=== PATIENT | male | born 1955 | race Caucasian/White ===

== ENCOUNTER 2018-07-14 10:49 | Outpatient (CLI) | payer OTHER ==
[2018-07-14] MEDS ORDERED: Iopamidol 370 76% 100 ML VIAL ONE (10:57)
[2018-07-14 11:14] LABS: Estimated GFR-MDRD - POC Greater than 90
--- NOTE | 2018-07-14 11:41 | CT ---
CT chest with IV contrast HISTORY: Supraglottic neoplasm malignant. COMPARISON: CT neck from [facility] dated 05/02/2018. FINDINGS: Lungs are hyperinflated with scattered peripheral areas of mild scarring. Azygous fissure a t the medial aspect of the right lung apex a 0.4 cm noncalcified nodule within the left upper lobe abuts the anterior pleura. A 0.2 cm subpleural nodule is present within the posterior segment left up per lobe. No pleural fluid or pneumothorax. A precarinal lymph node of the mediastinum measuring up to 2.1 cm g reatest length retains a normal fatty hilum. There is prominent calcification throughout the descending thoracic aorta and coronary arteries. IMPRESSION: Small subpleural left lung nodules, measuring up to 0.4 cm. No reliable evidence of thora cic metastatic disease. Atherosclerosis.
== END 2018-07-14 10:50 | disposition home or self-care (01) ==
LOC: BICCT 10:49
PROVIDERS: ATTEND Internal Medicine Hematology & Oncology
DX: C32.1 Malignant neoplasm of supraglottis (principal); R91.8 Other nonspecific abnormal finding of lung field; I70.0 Atherosclerosis of aorta
CPT/HCPCS: 71260; 82565; Q9967

== ENCOUNTER 2018-08-25 07:47 | Day surgery (SDC) | payer OTHER ==
[2018-08-25] MEDS ORDERED: Sodium Chloride 0.9% 20 ML ONE (08:03)
[2018-08-25] MEDS ORDERED: Dexamethasone 10 MG/ML VIAL SLOW IVP SCH (08:15)
[2018-08-25] MEDS ORDERED: CISplatin 75 MG, manNITOL 12.5 GM in Sodium Chloride 0.9% 500 ML IV SCH (08:15)
[2018-08-25] MEDS ORDERED: PALONOSETRON HCL 0.05 MG/ML 5 ML VIAL IVP SCH (08:15)
[2018-08-25] MEDS ORDERED: Sodium Chloride 0.9% 500 ML IV SCH (08:15)
[2018-08-25 10:30] VITALS: BP 147/77; TEMP 98.6
== END 2018-08-25 15:43 | disposition home or self-care (01) ==
LOC: ONC/OP 07:47
PROVIDERS: ATTEND Internal Medicine Hematology & Oncology
DX: Z51.11 Encounter for antineoplastic chemotherapy (principal); C32.1 Malignant neoplasm of supraglottis
CPT/HCPCS: 96361; 96367; 96375; 96413; J1100; J2150; J2469; J7050; J9060

== ENCOUNTER 2018-09-01 08:15 | Day surgery (SDC) | payer OTHER ==
[~2018-09-01 08:15] MED LIST: CISplatin 75 MG, manNITOL 12.5 GM in Sodium Chloride 0.9% 500 ML IV SCH; Dexamethasone 10 MG/ML VIAL SLOW IVP SCH; PALONOSETRON HCL 0.05 MG/ML 5 ML VIAL IVP SCH; Sodium Chloride 0.9% 500 ML IV SCH
[2018-09-01 12:24] VITALS: BP 130/65; TEMP 99
== END 2018-09-01 12:27 | disposition home or self-care (01) ==
LOC: ONC/OP 08:15
PROVIDERS: ATTEND Internal Medicine Hematology & Oncology
DX: Z51.11 Encounter for antineoplastic chemotherapy (principal); C32.1 Malignant neoplasm of supraglottis
CPT/HCPCS: 96361; 96365; 96375; 96415; J1100; J2150; J2469; J7050; J9060

== ENCOUNTER 2018-09-08 08:12 | Day surgery (SDC) | payer OTHER ==
[~2018-09-08 08:12] MED LIST changes: -Dexamethasone 10 MG/ML VIAL SLOW IVP SCH; -PALONOSETRON HCL 0.05 MG/ML 5 ML VIAL IVP SCH; +Palonosetron HCl 0.25 MG in Sodium Chloride 0.9% 50 ML IVPB SCH; +Sodium Chloride 0.9% 1,000 ML IV SCH
[2018-09-08] MEDS ORDERED: Sodium Chloride 0.9% 20 ML ONE (08:21)
[2018-09-08 09:07] VITALS: BP 134/66; TEMP 99
== END 2018-09-08 16:27 | disposition home or self-care (01) ==
LOC: ONC/OP 08:12
PROVIDERS: ATTEND Internal Medicine Hematology & Oncology
DX: Z51.11 Encounter for antineoplastic chemotherapy (principal); C32.1 Malignant neoplasm of supraglottis
CPT/HCPCS: 96361; 96367; 96375; 96413; J1100; J2150; J2469; J3480; J7050; J9060

== ENCOUNTER 2018-09-15 08:15 | Day surgery (SDC) | payer OTHER ==
[~2018-09-15 08:15] MED LIST changes: -Sodium Chloride 0.9% 1,000 ML IV SCH
[2018-09-15 09:28] VITALS: BP 137/63; TEMP 98.6
== END 2018-09-15 13:27 | disposition home or self-care (01) ==
LOC: ONC/OP 08:15
PROVIDERS: ATTEND Internal Medicine Hematology & Oncology
DX: Z51.11 Encounter for antineoplastic chemotherapy (principal); C32.1 Malignant neoplasm of supraglottis
CPT/HCPCS: 96361; 96366; 96368; 96413; J1100; J2150; J2469; J3480; J7050; J9060

== ENCOUNTER 2018-09-22 07:46 | Day surgery (SDC) | payer OTHER ==
[2018-09-22 08:16] VITALS: BP 125/77; TEMP 97.8
[2018-09-22] MEDS ORDERED: Sodium Chloride 0.9% 20 ML ONE (09:01)
== END 2018-09-22 14:32 | disposition home or self-care (01) ==
LOC: ONC/OP 07:46
PROVIDERS: ATTEND Internal Medicine Hematology & Oncology
DX: Z51.11 Encounter for antineoplastic chemotherapy (principal); C32.1 Malignant neoplasm of supraglottis
CPT/HCPCS: 96361; 96366; 96375; 96413; J1100; J2150; J2469; J3480; J7050; J9060

== ENCOUNTER 2018-09-30 20:17 | Inpatient (IN) | payer OTHER, SELFPAY ==
[2018-09-30 21:00] LABS: Hemoglobin 11.5 g/dL (14.0-18.0); Mean Corpuscular HGB CONC 35.9 g/dL (32.0-36.0); Mean Corpuscular Hemoglobin 34.2 pg (27.0-31.0); Mean Corpuscular Volume 95.2 fL (78.0-98.0); Mean Platelet Volume 6.6 fL (7.4-10.4); Platelet Count 161 thou/uL (130-400); RBC Distribution Width 13.1 % (11.5-14.5); Red Blood Cell (RBC) Count 3.37 mill/uL (4.70-6.10); White Blood Cell (WBC) Count 1.3 thou/uL (4.8-10.8)
--- NOTE | 2018-09-30 21:12 | RAD ---
Upright frontal chest radiograph: 09/30/2018 COMPARISON: 05/21/2013 HISTORY: Chest pain FINDINGS: Increased linear interstitial density and pulmonary hyperinflation again noted., Stable whe n compared to the prior study. Findings suggest COPD in the proper clinical setting. No pneumothorax or pleural fluid. No focal consolidation or alveolar edema. IMPRESSION: Interstitial prominence and pulmonary basilar congestion as detailed above.
[2018-09-30 21:22] LABS: ALT (SGPT) 10 U/L (8-55); AST (SGOT) 11 U/L (5-34); Albumin 3.6 g/dL (3.5-5.0); Alkaline Phosphatase 69 U/L (40-150); Anion Gap 14 mmol/L (10-20); BUN (Urea Nitrogen) 12 mg/dL (8.4-25.7); Bilirubin, Total 1.5 mg/dL (0.2-1.2); Calc. Creatinine Clearance 0 mL/min (70-130); Calcium 8.3 mg/dL (7.8-10.44); Carbon Dioxide 26 mmol/L (22-29); Chloride 92 mmol/L (98-107); Estimated GFR-MDRD 90; Globulin 2.8 g/dL (2.4-3.5); Glucose 102 mg/dL (70-105); Potassium 3.6 mmol/L (3.5-5.1); Protein, Total 6.4 g/dL (6.0-8.3); Sodium 128 mmol/L (136-145)
[2018-09-30] MEDS ORDERED: Cefepime 2 GM VIAL ONE (21:24)
[2018-09-30 21:25] LABS: Band 10 % (5-11); Lymphocytes 20 % (21-51); MDiff Complete? YES; Monocytes 26 % (0-10); Neutrophil 43 % (42-75); Reactive Lymphocytes 1 % (0-10)
[2018-09-30] MEDS ORDERED: Acetaminophen 500 MG TAB ONE (21:53)
--- NOTE | 2018-09-30 23:11 | PDOC.FPRHP ---
- History of Present Illness Chief Complaint: chest pain, fever, decreased po intake History of Present Illness: Mr. Barreto is a 62 yoM w/ PMH of supraglottic cancer currently undergoing chemo and radiation who presented to the ED for episodic chest pain and fever. He describes the chest pain as pressure in the midepigastric area, substernal, comes and goes, lasts for a few minutes, does not radiate anywhere. He has only had one episode of the pain today, but has had a couple in the last several weeks. He denies sob with the pain, but is sob all the time because he has COPD , denies n/v. He states that he has not had a good appetite or been able to eat or drink in several days due to pain from radiation. He has generalized weakness and endorses dizziness with standing. He is on his fifth week of chemo and day 24 of radiation. His oncologist is Dr. Cardozo. ED Course: 3L NS, 2g vancomycin, 2g cefepime - Allergies/Adverse Reactions Allergies Allergy/AdvReac Type Severity Reaction Status Date / Time No Known Allergies Allergy Verified 09/30/18 23:53 - Home Medications Medication Instructions Recorded Confirmed Type Albuterol Sulfate [Proventil Hfa] 1 puff IN PRN PRN 09/30/18 09/30/18 History Aspirin 325 mg PO DAILY 09/30/18 09/30/18 History Budesonide-Formoterol [Symbicort 2 puff INH BID-RT 09/30/18 09/30/18 History 160-4.5] Diltiazem HCl [Diltiazem 24Hr ER] 180 mg PO BID 09/30/18 09/30/18 History Loratadine 10 mg PO DAILY 09/30/18 09/30/18 History Magnesium Oxide [Magnesium] 500 mg PO DAILY 09/30/18 09/30/18 History Metoprolol Succinate [Toprol XL] 25 mg PO DAILY 09/30/18 09/30/18 History Ranitidine HCl 150 mg PO DAILY 09/30/18 09/30/18 History - History PMHx: HTN, Supraglottic malignancy, COPD PSHx: denies FHx:denies Social: smokes 1ppd for 40+ years; drinks 12-15 per day of beer, last drink ~48 hours ago - Review of Systems General: reports: fever/chills, weight/appetite/sleep changes, fatigue Eyes: denies: eye pain, vision changes ENT: denies: nasal congestion, rhinorrhea Respiratory: reports: cough, shortness of breath. denies: congestion Cardiovascular: reports: chest pain. denies: palpitation, edema Gastrointestinal: denies: nausea, vomiting, diarrhea, constipation Genitourinary: reports: other (decreased urination). denies: dysuria, polyuria Skin: denies: rashes, lesions Musculoskeletal: denies: pain, tenderness Neurological: denies: numbness, syncope Psychological: denies: anxiety, depression - Vital signs BP: 134/66 HR: 84 RR: 20 Tmax: 101.6 Pox: 95% on RA Wt: 69kg - Physical Exam Constitutional: NAD, awake, alert and oriented HEENT: normocephalic and atraumatic, PERRLA, EOMI, grossly normal vision, grossly normal hearing Neck: FROM, other (mass noted right side, radiation rodríguez present) Chest: no-tender to palpation Heart: RRR, normal S1/S2, no murmurs/rubs/gallops, pulses present, no edema Lungs: CTAB, no respiratory distress, good air movement, no rales/rhonchi, no wheezing Abdomen: soft, non-tender, bowel sounds present Musculoskeletal: normal structure, normal tone Neurological: no focal deficit, CN II-XII intact Skin: good turgor -Skin: radiation burn on neck and chest Heme/Lymphatic: no unusual bruising or bleeding, no purpura, no petechia Psychiatric: normal mood and affect, good judgment and insight FMR H&P: Results - Labs Result Diagrams: 10/01/18 05:38 10/01/18 05:38 Lab results: WBC 1.3 thou/uL (4.8-10.8) L 09/30/18 20:50 Hgb 11.5 g/dL (14.0-18.0) L 09/30/18 20:50 Hct 32.1 % (42.0-52.0) L 09/30/18 20:50 MCV 95.2 fL (78.0-98.0) 09/30/18 20:50 Plt Count 161 thou/uL (130-400) 09/30/18 20:50 Band Neuts % (Manual) 10 % (5-11) 09/30/18 20:50 Sodium 128 mmol/L (136-145) L 09/30/18 20:50 Potassium 3.6 mmol/L (3.5-5.1) 09/30/18 20:50 Chloride 92 mmol/L (98-107) L 09/30/18 20:50 Carbon Dioxide 26 mmol/L (22-29) 09/30/18 20:50 BUN 12 mg/dL (8.4-25.7) 09/30/18 20:50 Creatinine 0.87 mg/dL (0.7-1.3) 09/30/18 20:50 Glucose 102 mg/dL (70-105) 09/30/18 20:50 Lactic Acid 1.3 mmol/L (0.5-2.2) 09/30/18 20:50 Calcium 8.3 mg/dL (7.8-10.44) 09/30/18 20:50 Total Bilirubin 1.5 mg/dL (0.2-1.2) H 09/30/18 20:50 AST 11 U/L (5-34) 09/30/18 20:50 ALT 10 U/L (8-55) 09/30/18 20:50 Alkaline Phosphatase 69 U/L (40-150) 09/30/18 20:50 Serum Total Protein 6.4 g/dL (6.0-8.3) 09/30/18 20:50 Albumin 3.6 g/dL (3.5-5.0) 09/30/18 20:50 - EKG Interpretation EKG: Atrial fib w/ rvr - Radiology Interpretation Chest x-ray Status: report reviewed by me (COPD, no focal consolidation or edema.) FMR H&P: A/P - Problem List (1) COPD (chronic obstructive pulmonary disease) Current Visit: Yes Status: Acute (2) Cancer Current Visit: Yes Status: Acute Code(s): C80.1 - MALIGNANT (PRIMARY) NEOPLASM, UNSPECIFIED (3) Neutropenic fever Current Visit: Yes Status: Acute Code(s): D70.9 - NEUTROPENIA, UNSPECIFIED; R50.81 - FEVER PRESENTING WITH CONDITIONS CLASSIFIED ELSEWHERE (4) Atypical chest pain Current Visit: Yes Status: Acute Code(s): R07.89 - OTHER CHEST PAIN (5) Hyponatremia Current Visit: Yes Status: Acute Code(s): E87.1 - HYPO-OSMOLALITY AND HYPONATREMIA (6) Atrial fibrillation with RVR Current Visit: Yes Status: Acute Code(s): I48.91 - UNSPECIFIED ATRIAL FIBRILLATION (7) Dehydration Current Visit: Yes Status: Acute Code(s): E86.0 - DEHYDRATION - Plan 1. Neutropenic fever: * Unknown source. * WBC 1.6. Empirically started on Cefepime 2g TID and Vancomycin * Blood and urine cultures pending. * Respiratory viral panel pending 2. Atypical chest pain * Heart score 3 or 4. * Trend troponins and repeat EKG if chest pain recurs. * Initial troponin negative. * History of malignancy and COPD, unlikely able to be stress tested at this time. 3. Hyponatremia * Currently dehydrated with concentrated urine. * Chronic alcohol use. * Urine Na and Osm ordered. * May be chronic, labs from 2014 also showed hyponatremia. * Will reassess in the am. 4. Afib with RVR * Chronic medical problem. * Rate resolved with 3L NS. * Will restart home medications. 5. Alcohol abuse * Drinks 12-15 beers/day. Last drink ~48hours ago. * Denies symptoms of withdrawal. * ASE protocol ordered. 6. Supraglottic malignancy * Sees Dr. Cardozo, will consult ONC in the AM Disposition/LOS: Dispo: inpatient Code: full VTE: lovenox FMR H&P: Upper Level - Pertinent history 62 yo gentleman with supraglottic malignancy presents with generalized weakness and chest pain, found to have a fever here in the ED and neutropenia. He is currently getting chemo and radiation. Last round was yesterday. - Pertinent findings Vitals: HR: 98, afib, initially 130 afib with rvr, BP: 110/65, O2sat: 94% RA, T: 101.6 PE: golfball size mass of right neck irregularly irregular rhythm decreased breath sounds chest pain not reproducible on exam a&ox3 Labs: wbc: 1.3 CXR: no acute process - Plan Date/Time: 09/30/18 2308 62 yo gentleman admitted for neutropenic fever without a source. #Neutropenic fever -wbc 1.6, pt started on cefepime and vanc, blood and urine cx sent; no clear source currently -CXR no signs of pneumonia, ordered RVP to further assess -UA showed ketones -a&ox3 Atypical chest pain- -midepigastric, substernal, pressure, comes and goes, not with exertion, no associated sx -heart score of 3-4; will rule out with serial troponins and EKGs if chest pain recurs -pt has a malignancy and COPD, not a good candidate for an exercise or pharmacologic stress -initial troponin negative #hyponatremia- -volume down -ordered urine sodium and urine osms ordered -mild and chronic -fluid resusitated in the ER -will recheck in the morning -suspect multifactorial: has been present since 2013; could be SIADH 2/2 malignancy, although neck cancer is less commonly associated with SIADH, will check tsh as radiation to neck, not currently on diuretics, is a beer drinker, bp's normal so less likely AI, not c/o vomiting or diarrhea #Afib with RVR- -RVR resolved with 3L fluids -restarted home meds -rate in the 80s during our evaluation -currently on 325mg aspirin daily instead of a NOAC. -if tachycardia returns, consider CT PA of chest, although not hypoxic or acutely short of breath, however d/t malignancy at increased risk for DVT/PE Deconditioned/Dehydrated- -started fluids #Alcohol abuse- -12-15 beers per day -last beer ~48 hours ago #Supraglottic malignancy- -Sees Dr. Cardozo -currently undergoing chemo/radiation See product development intern note for chronic conditions. Willard Castillo MD, PGY-3 I, [], have evaluated this patient and agree with findings/plan as outlined by product development intern resident. Pertinent changes/additions are listed here. Addendum - Attending - Attending Attestation Date/Time: 10/01/181811 I personally evaluated the patient and discussed the management with Dr. Denise/ Anna. I agree with the History, Examination, Assessment and Plan documented above with any addition or exceptions noted below. H&P repeated by me. Neutropenic fever- no obvious source and procal negative. Continue cefepime and vanc until cx neg at 48 hours. Then probably discharge. Appreciate onc input Squamous cell carcinoma- management per Onc/radiation onc Dehydration- IVF Hypokalemia- replace.
[2018-09-30] MEDS ORDERED: Senokot S 8.6-50 MG TAB PO PRN (23:34)
[2018-09-30] MEDS ORDERED: Ondansetron ODT 4 MG TAB PO PRN (23:34)
[2018-09-30] MEDS ORDERED: Loperamide HCl 2 MG CAP PO PRN (23:34)
[2018-09-30] MEDS ORDERED: Enoxaparin Sodium 40 MG/0.4 ML SYRINGE SC SCH (23:45)
[2018-10-01] VITALS: BMI 19.0
[2018-10-01] MEDS: Sodium Chloride 0.9% 1,000 ML IV SCH ×4 (00:38→20:27)
[2018-10-01 00:55] LABS: Bacteria/HPF None Seen HPF (None Seen); Bilirubin Negative (Negative); Blood, Urine Negative (Negative); Clarity Clear (Clear); Glucose, Urine (Dipstick) Normal (Negative); Leukocyte Negative Leu/uL (Negative); Nitrite Negative (Negative); Protein, Urine (Dipstick) 30 mg/dL (Neg-Trace); RBC/HPF 0-3 HPF (0-3); Squamous Epithelial 0-3 HPF (0-3); Urobilinogen Normal mg/dL (Less than 2)
[2018-10-01] MEDS ORDERED: PROVENTIL INHALER 6.7 G (200 INHALATIONS) INH PRN (01:56)
[2018-10-01] MEDS ORDERED: Lorazepam 2 MG/ML VIAL SLOW IVP PRN (02:06)
[2018-10-01 02:30] LABS: Troponin I 0.022 ng/mL (< 0.028)
[2018-10-01] MEDS ORDERED: Diazepam 5 MG TAB PO PRN (02:39)
[2018-10-01] MEDS ORDERED: Thiamine HCl 200 MG/2 ML VIAL IM SCH (02:45)
[2018-10-01] MEDS ORDERED: Diazepam 5 MG TAB PO SCH (02:45)
[2018-10-01] MEDS: Cefepime 2 GM in Sodium Chloride 0.9% 100 ML IVPB SCH ×3 (05:17→21:09)
[2018-10-01] MEDS: Vancomycin HCl 1 GM in Premix Bag 1 BAG IVPB SCH ×3 (05:21→22:28)
[2018-10-01 06:33] LABS: Anion Gap 12 mmol/L (10-20); BUN (Urea Nitrogen) 9 mg/dL (8.4-25.7); Calc. Creatinine Clearance 111 mL/min (70-130); Calcium 7.4 mg/dL (7.8-10.44); Carbon Dioxide 21 mmol/L (22-29); Chloride 100 mmol/L (98-107); Estimated GFR-MDRD Greater than 90; Glucose 85 mg/dL (70-105); Potassium 3.2 mmol/L (3.5-5.1); Sodium 130 mmol/L (136-145)
[2018-10-01] MEDS: Mometasone/Formoterol 120 PUFF INHALER INH SCH ×2 (06:55→18:47)
[2018-10-01 07:01] LABS: Band 12 % (5-11); Eosinophils 1 % (0-10); Hemoglobin 9.8 g/dL (14.0-18.0); Lymphocytes 31 % (21-51); MDiff Complete? YES; Mean Corpuscular HGB CONC 36.1 g/dL (32.0-36.0); Mean Corpuscular Hemoglobin 34.2 pg (27.0-31.0); Mean Corpuscular Volume 94.8 fL (78.0-98.0); Mean Platelet Volume 6.6 fL (7.4-10.4); Monocytes 28 % (0-10); Neutrophil 28 % (42-75); Platelet Count 142 thou/uL (130-400); RBC Distribution Width 13.2 % (11.5-14.5); Red Blood Cell (RBC) Count 2.86 mill/uL (4.70-6.10); White Blood Cell (WBC) Count 1.1 thou/uL (4.8-10.8)
[2018-10-01] MEDS: Magnesium Oxide 250 MG TAB PO SCH (08:53)
[2018-10-01] MEDS: Aspirin 325 MG TAB PO SCH (08:53)
[2018-10-01] MEDS: Multivitamin W/ Minerals 1 TAB PO SCH (08:53)
[2018-10-01] MEDS: Famotidine 20 MG TAB PO SCH ×2 (08:54→20:18)
[2018-10-01] MEDS: Folic Acid 1 MG TAB PO SCH (08:54)
[2018-10-01] MEDS: Loratadine 10 MG TAB PO SCH (08:54)
[2018-10-01] MEDS: Enoxaparin Sodium 40 MG/0.4 ML SYRINGE SC SCH ×2 (08:54→09:07)
[2018-10-01] MEDS ORDERED: Prevnar 13-Val Conj/PF 0.5 ML SYRINGE IM ONE (09:00)
[2018-10-01 10:14] LABS: Troponin I Less than 0.010 ng/mL (< 0.028)
--- NOTE | 2018-10-01 15:12 | CON ---
DATE OF CONSULTATION: REASON FOR CONSULT: Squamous cell carcinoma. HISTORY OF PRESENT ILLNESS: Mr. 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 He has a history of tobacco and alcohol use. He has been on concurrent chemoradiation with cisplatin. He has completed 4 cycles and has 10 days of radiation left. His last chemotherapy was scheduled for this past Saturday. However, his white count was 1.3 with an ANC of 0.6, so treatment was held. He states he had a fever last night of 101.3 and generalized malaise, so he presented to the emergency room for evaluation. On arrival, his white count was 1.3, hemoglobin 11.5, and platelet count was a 161,000. His sodium was 128. He was admitted for dehydration and hyponatremia. He has been started on IV fluids. He has been enciso-cultured and results are currently pending. He is on empiric antibiotics including vancomycin. He states he is feeling significantly improved overnight. States his last drink was approximately three days ago. He drinks 6 to 12 beers in the evening. Continues to smoke despite frequent request to stop. Denies any congestion or new cough. No abdominal pain. No diarrhea, nausea, or vomiting. PAST MEDICAL HISTORY: 1. Metastatic keratinizing squamous cell carcinoma. 2. Hypertension. 3. Atrial fibrillation. 4. COPD. 5. GERD. 6. Tobacco and alcohol abuse. PAST SURGICAL HISTORY: FNA of the right neck mass. ALLERGIES: NO KNOWN DRUG ALLERGIES. HOME MEDICATIONS: 1. Symbicort twice a day. 2. Ranitidine daily. 3. Proventil as needed. 4. Metoprolol succinate 25 mg daily. 5. Diltiazem ER 180 mg b.i.d. 6. Aspirin 325 daily. FAMILY HISTORY: Noncontributory. SOCIAL HISTORY: . No children. Lives with his spouse. A 45 pack-year history of smoking. Drinks heavily. No illicit drug use. REVIEW OF SYSTEMS: A 10-point review of systems is negative except for noted in HPI. PHYSICAL EXAMINATION: VITAL SIGNS: Temperature is 98.7, pulse is 110, respiratory rate 17, BP is 128/70, and he is 97% on room air. GENERAL: This is a chronically ill-appearing male, in no acute distress. HEENT: Normocephalic and atraumatic. Pupils are equal and reactive to light. NECK: He has a 4 to 5 cm mass on his right neck. LUNGS: Clear to auscultation. CV: Regular rate and rhythm. ABDOMEN: Soft and nontender. Bowel sounds are positive. EXTREMITIES: No clubbing, cyanosis, or edema. SKIN: He has a radiation burn to his neck. HEMATOLOGIC: No petechiae or purpura. NEUROLOGIC: Nonfocal. PSYCH: He is alert and oriented and appropriate. PERTINENT LABS AND X-RAYS: Current WBCs are 1.1, hemoglobin is 9.8, hematocrit is 27.1, platelet count is a 142,000, 28% neutrophils, 12% bands, and 31% lymphocytes. Sodium 130, potassium 3.2, chloride 100, CO2 of 21, BUN is 9, creatinine 0.69, calcium 7.4, bilirubin is 1.5, AST is 11, ALT 10, alkaline phosphatase is 69, serum total protein 6.4, albumin 3.6, and globulin 2.8. Urine is negative for bacteria. ASSESSMENT: 1. Squamous cell carcinoma of the right neck on concurrent chemo radiation. 2. History of tobacco and alcohol use. 3. Dehydration. 4. Neutropenic fever. DISCUSSION: The patient's fever has resolved. His neutropenia is stable, expected to improve over the next several days. His blood cultures are pending. He has been instructed to avoid alcohol and tobacco use as this likely contributes to his dehydration. He is feeling better with IV fluids. We have discussed PEG tube multiple times in the past, he continues to decline. He can be discharged once his cultures have returned and he is treated appropriately. He will follow up in our clinic on Saturday for possible IV fluids and repeat labs and resume chemotherapy next week. I have notified radiation of his location and will be continued based on Dr. Sheppard's discretion. Thank you for the consult. Job ID: [id number]
[2018-10-01] MEDS: Acetaminophen 325 MG TAB PO PRN (20:19)
[2018-10-01 21:53] LABS: Vancomycin, Trough 17.3 ug/mL
[2018-10-02] MEDS ORDERED: Diazepam 5 MG TAB PO PRN (04:00)
[2018-10-02] MEDS: Acetaminophen 325 MG TAB PO PRN ×2 (04:04→15:59)
[2018-10-02] MEDS: Cefepime 2 GM in Sodium Chloride 0.9% 100 ML IVPB SCH ×3 (05:07→21:04)
[2018-10-02] MEDS: Vancomycin HCl 1 GM in Premix Bag 1 BAG IVPB SCH ×2 (05:16→14:31)
--- NOTE | 2018-10-02 06:02 | PDOC.FM ---
- Subjective Subjective: Pt doing well this morning, he would like to go home. Discussed need to stay for 48h cultures, pt agreed at this time. No CP, SOB, fevers/chills, n/v/d/c. Decrease PO intake and appetite, this is chronic. Has had discussion for PEG in past but continues to decline. - Objective MAR Reviewed: Yes Vital Signs & Weight: Vital Signs (12 hours) Temp Pulse Resp BP BP Pulse Ox 10/02/18 04:00 135/68 10/02/18 03:59 101.1 F H 125 H 20 135/68 94 L 10/02/18 00:00 129/79 10/01/18 23:58 99.0 F 102 H 20 129/79 92 L 10/01/18 22:30 99.9 F H 114 H 10/01/18 20:27 94 L 10/01/18 20:00 158/76 H 10/01/18 19:22 100.5 F H 110 H 20 158/76 H 93 L Weight Admit Weight 68.974 kg Weight 68.974 kg I&O: 09/30/18 10/01/18 10/02/18 06:59 06:59 06:59 Intake Total 1960 Balance 1960 Result Diagrams: 10/02/18 06:17 10/02/18 15:50 Phys Exam - Physical Examination Constitutional: NAD Large 5+cm mass on right neck, nontender, radiation rodríguez around neck wheezing BL, decreased air movement throughout. Cardiovascular: RRR, no significant murmur, no rub Gastrointestinal: soft, non-tender, no distention, positive bowel sounds Musculoskeletal: no edema Neurological: non-focal Dx/Plan (1) Squamous cell carcinoma, keratinizing Code(s): C44.92 - SQUAMOUS CELL CARCINOMA OF SKIN, UNSPECIFIED Status: Acute (2) Atypical chest pain Code(s): R07.89 - OTHER CHEST PAIN Status: Resolved (3) COPD (chronic obstructive pulmonary disease) Status: Chronic (4) Dehydration Code(s): E86.0 - DEHYDRATION Status: Acute (5) Neutropenic fever Code(s): D70.9 - NEUTROPENIA, UNSPECIFIED; R50.81 - FEVER PRESENTING WITH CONDITIONS CLASSIFIED ELSEWHERE Status: Acute - Plan Plan: 62 yo CM with h/o 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 1. Neutropenic fever - Wbc 1.6, ANC 440. On cefepime and vanc, Bcx and Ucx pending; spiked fever overnight, no clear source. Recheck CBC this AM. - CXR no signs of pneumonia, RVP negative - Procal initially negative, will reorder. - Likely neutropenic fever, will get Onc recs and monitor for 48 hour cxs 2. Atypical chest pain, resolved - Midepigastric pressure that comes and goes, nonexertional, no associated sxs. Heart score 3-4. - EKG and trops neg. No return of sxs - H/o malignancy and COPD, not good candidate for stress, likely MSK vs GERD pain. Will monitor. 3. Hyponatremia - Possibly hypovolemic hyponatremia, mild and chronic in nature present since 2013, h/o EtOH abuse with poor PO intake - Continue IVF - K low at 2.7 and Mg at 0.9 this AM, replacing and recheck BMP this PM. 4. Afib with RVR- - RVR resolved with 3L fluids in ED. - Continue home meds, HR to 120s this AM, night team added Toprol. - Currently on 325mg ASA instead of NOAC 5. Deconditioned/Dehydrated - continue IVF of NS @ 125 6. H/o Alcohol abuse- - 12-15 beers per day. Last drink > 48h prior to admission - no s/s of acute withdrawal, will monitor 7. 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 Cardozo and notified Dr. Gallardo's office, currently undergoing chemo and radiation, apprec recs and assistance. Diet: Regular VTE: Pt continues to refuse lovenox, R/B/A discussed, will provide SCDs at this time Code: Full Dispo: On abx and continuing to spike fevers, likely neutropenic fevers, will await 48h cultures. Anticipate discharge tomorrow pending clinical course Addendum - Attending - Attending Attestation Date/Time: 10/02/182113 I personally evaluated the patient and discussed the management with Dr. Paula Fermin. I agree with the History, Examination, Assessment and Plan documented above with any addition or exceptions noted below. Neutropenic fever-blood and urine cx neg thus far. Still febrile. ANc improved to 561. Continue cefepime and vanc until 48 hour cx neg Afib- elevated HR when febrile. Continue IVF and home rate controllers. hypokalemia and hypomagnesemia- replace.
[2018-10-02 06:30] LABS: Hemoglobin 10.7 g/dL (14.0-18.0); Mean Corpuscular Hemoglobin 33.9 pg (27.0-31.0); Mean Corpuscular Volume 94.2 fL (78.0-98.0); Platelet Count 161 thou/uL (130-400); RBC Distribution Width 13.4 % (11.5-14.5); Red Blood Cell (RBC) Count 3.17 mill/uL (4.70-6.10); White Blood Cell (WBC) Count 1.1 thou/uL (4.8-10.8)
[2018-10-02 06:37] LABS: Anion Gap 12 mmol/L (10-20); BUN (Urea Nitrogen) 5 mg/dL (8.4-25.7); Calc. Creatinine Clearance 120 mL/min (70-130); Calcium 7.6 mg/dL (7.8-10.44); Carbon Dioxide 24 mmol/L (22-29); Chloride 94 mmol/L (98-107); Estimated GFR-MDRD Greater than 90; Glucose 99 mg/dL (70-105); Sodium 127 mmol/L (136-145)
[2018-10-02 06:39] LABS: Magnesium 0.9 mg/dL (1.6-2.6); Potassium 2.7 mmol/L (3.5-5.1)
[2018-10-02] MEDS: Mometasone/Formoterol 120 PUFF INHALER INH SCH ×2 (07:09→18:11)
[2018-10-02] MEDS ORDERED: Magnesium 2 GM/50 ML 2 GM in Premix Bag 1 BAG IVPB SCH (07:30)
[2018-10-02] MEDS: Potassium Chloride 20 MEQ in Premix Bag 1 BAG IVPB SCH ×2 (07:59→10:13)
[2018-10-02 08:05] LABS: Band 20 % (5-11); Eosinophils 3 % (0-10); Lymphocytes 29 % (21-51); MDiff Complete? YES; Monocytes 16 % (0-10); Neutrophil 31 % (42-75); Platelet Morphology Comment Appears Adequate; Polychromasia SLIGHT = 2-3 cells (100X) (0-2/hpf); Reactive Lymphocytes 1 % (0-10)
[2018-10-02] MEDS: Thiamine 100 MG TAB PO SCH (08:13)
[2018-10-02] MEDS: Aspirin 325 MG TAB PO SCH (08:13)
[2018-10-02] MEDS: Famotidine 20 MG TAB PO SCH ×2 (08:13→21:04)
[2018-10-02] MEDS: Loratadine 10 MG TAB PO SCH (08:14)
[2018-10-02] MEDS: Folic Acid 1 MG TAB PO SCH (08:14)
[2018-10-02] MEDS: Multivitamin W/ Minerals 1 TAB PO SCH (08:14)
[2018-10-02] MEDS: Enoxaparin Sodium 40 MG/0.4 ML SYRINGE SC SCH (08:18)
[2018-10-02] MEDS: Sodium Chloride 0.9% 1,000 ML IV SCH ×2 (08:18→17:49)
[2018-10-02] MEDS: Magnesium Oxide 250 MG TAB PO SCH (08:30)
[2018-10-02] MEDS ORDERED: Magnesium Oxide 400 MG TAB PO SCH (09:00)
[2018-10-02 10:59] LABS: Bilirubin Negative (Negative); Blood, Urine Negative (Negative); Clarity Clear (Clear); Glucose, Urine (Dipstick) Normal (Negative); Leukocyte Negative Leu/uL (Negative); Nitrite Negative (Negative); Protein, Urine (Dipstick) Negative (Neg-Trace); Urobilinogen Normal mg/dL (Less than 2)
--- NOTE | 2018-10-02 11:31 | PDOC.MOPN ---
Interval History: Denies complaints, eating poorly. Fever 101 last night - Vital Signs Vital Signs: Vital Signs (12 hours) Temp Pulse Resp BP BP Pulse Ox 10/02/18 08:00 118/73 10/02/18 07:18 99.3 F 102 H 18 118/73 90 L 10/02/18 07:09 118 H 14 94 L 10/02/18 06:00 100.9 F H 110 H 10/02/18 04:00 135/68 10/02/18 03:59 101.1 F H 125 H 20 135/68 94 L 10/02/18 00:00 129/79 10/01/18 23:58 99.0 F 102 H 20 129/79 92 L Weight Admit Weight 152 lb 1 oz Weight 152 lb 1 oz - Physical Exam General: Alert, Oriented x3 HEENT: Atraumatic Lungs: Clear to auscultation Cardiovascular: Regular rate Abdomen: Normal bowel sounds Extremities: No edema Skin: No rashes (right neck mass with mild radiation skin changes) Neurological: Normal speech Psych/Mental Status: Mental status NL - Labs Result Diagrams: 10/02/18 06:17 10/02/18 06:17 Lab results: Laboratory Results - last 24 hr 10/02/18 08:00: Urine Color Light-Yellow, Urine Clarity Clear, Urine pH 6.0, Ur Specific [place] 1.011, Urine Protein Negative, Urine Glucose (UA) Normal, Urine Ketones 40 A, Urine Blood Negative, Urine Nitrite Negative, Urine Bilirubin Negative, Urine Urobilinogen Normal, Ur Leukocyte Esterase Negative 10/02/18 06:17: WBC 1.1 L, RBC 3.17 L, Hgb 10.7 L, Hct 29.8 L, MCV 94.2, MCH 33.9 H, MCHC 36.0, RDW 13.4, Plt Count 161, MPV 6.0 L, Neutrophils % (Manual) 31 L, Band Neuts % (Manual) 20 H, Lymphocytes % (Manual) 29, Reactive Lymphs % 1 , Monocytes % (Manual) 16 H, Eosinophils % (Manual) 3, Neutrophils # Not Reportable, Lymphocytes # Not Reportable, Plt Morphology Comment Appears Adequate, Polychromasia SLIGHT = 2-3 cells 10/02/18 06:17: Procalcitonin 0.04 10/02/18 06:17: Sodium 127 L, Potassium 2.7 L*, Chloride 94 L, Carbon Dioxide 24 , Anion Gap 12, BUN 5 L, Creatinine 0.64 L, Estimated GFR (MDRD) Greater than 90, Glucose 99, Calcium 7.6 L, Phosphorus 3.0, Magnesium 0.9 L* 10/01/18 21:22: Vancomycin Trough 17.3 Status: lab reviewed by me A/P - Problem (1) Dehydration Current Visit: Yes Code(s): E86.0 - DEHYDRATION Status: Acute (2) Hyponatremia Current Visit: Yes Code(s): E87.1 - HYPO-OSMOLALITY AND HYPONATREMIA Status : Acute (3) Neutropenic fever Current Visit: Yes Code(s): D70.9 - NEUTROPENIA, UNSPECIFIED; R50.81 - FEVER PRESENTING WITH CONDITIONS CLASSIFIED ELSEWHERE Status: Acute (4) Squamous cell carcinoma, keratinizing Current Visit: Yes Code(s): C44.92 - SQUAMOUS CELL CARCINOMA OF SKIN, UNSPECIFIED Status: Acute (5) Hypomagnesemia Current Visit: Yes Code(s): E83.42 - HYPOMAGNESEMIA Status: Acute - Plan Plan: Continue empiric antibiotics, await cultures IVF for dehydration replete electrolytes Encourage po intake Resume radiation today Neutropenic precautions
[2018-10-02 16:20] LABS: Anion Gap 10 mmol/L (10-20); BUN (Urea Nitrogen) 6 mg/dL (8.4-25.7); Calc. Creatinine Clearance 113 mL/min (70-130); Calcium 7.5 mg/dL (7.8-10.44); Carbon Dioxide 26 mmol/L (22-29); Chloride 94 mmol/L (98-107); Estimated GFR-MDRD Greater than 90; Glucose 111 mg/dL (70-105); Magnesium 1.5 mg/dL (1.6-2.6); Potassium 3.3 mmol/L (3.5-5.1); Sodium 127 mmol/L (136-145)
[2018-10-02] MEDS ORDERED: Potassium Chloride 20 MEQ TAB PO SCH (17:30)
[2018-10-02 21:23] LABS: Vancomycin, Trough 22.5 ug/mL
[2018-10-02] MEDS: Vancomycin HCl 750 MG in Sodium Chloride 0.9% 250 ML 250 ML IVPB SCH (21:56)
[2018-10-03] MEDS: Sodium Chloride 0.9% 1,000 ML IV SCH ×2 (00:50→05:27)
[2018-10-03] MEDS: Vancomycin HCl 750 MG in Sodium Chloride 0.9% 250 ML 250 ML IVPB SCH (05:27)
[2018-10-03] MEDS: Cefepime 2 GM in Sodium Chloride 0.9% 100 ML IVPB SCH (05:27)
--- NOTE | 2018-10-03 06:22 | PDOC.FM ---
- Subjective Subjective: Pt doing well this morning, no acute events overnight. Denies Cp, SOB, n/v/d/c, fever/chills. Chronic decrease PO intake and sputum production, no acute changes. He is eager to be discharged home to f/u with the Cancer center next week. - Objective MAR Reviewed: Yes Vital Signs & Weight: Vital Signs (12 hours) Temp Pulse Resp BP Pulse Ox 10/03/18 03:27 99.2 F 100 20 119/67 92 L 10/02/18 23:37 99.2 F 95 20 112/66 93 L 10/02/18 19:19 98.0 F 104 H 20 113/66 104 H Weight Admit Weight 68.974 kg Weight 68.974 kg I&O: 10/01/18 10/02/18 10/03/18 06:59 06:59 06:59 Intake Total 3735 2126 Balance 3735 2126 Result Diagrams: 10/03/18 09:18 10/03/18 09:18 Phys Exam - Physical Examination Constitutional: NAD (coughing up thick white phelm) HEENT: moist MMs ~4cm right neck mass, nontender, radiation rodríguez around neck, unchanged Tight, course rales bilaterally L>R, poor air movement, similar to previous Cardiovascular: no significant murmur, no rub Tachy, regular rhythm Gastrointestinal: soft, non-tender, no distention, positive bowel sounds Musculoskeletal: no edema Psychiatric: A&O x 3 Dx/Plan (1) Squamous cell carcinoma, keratinizing Code(s): C44.92 - SQUAMOUS CELL CARCINOMA OF SKIN, UNSPECIFIED Status: Acute (2) Atypical chest pain Code(s): R07.89 - OTHER CHEST PAIN Status: Resolved (3) COPD (chronic obstructive pulmonary disease) Status: Chronic (4) Dehydration Code(s): E86.0 - DEHYDRATION Status: Acute (5) Neutropenic fever Code(s): D70.9 - NEUTROPENIA, UNSPECIFIED; R50.81 - FEVER PRESENTING WITH CONDITIONS CLASSIFIED ELSEWHERE Status: Acute - Plan Plan: 62 yo CM with h/o 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 1. Neutropenic fever - ANC 440 -> 550. On cefepime and vanc, Bcx NG@48hr and Ucx NG@24hr; spiked fever 100.8 overnight - CXR no signs of pneumonia, RVP negative, Procal neg - Onc, Dr. Cardozo, consulted, will obtain Onc recs for discharge and f/u plan, apprec assistance - Will repeat CBC this AM. 2. Atypical chest pain, resolved - Midepigastric pressure that comes and goes, nonexertional, no associated sxs. Heart score 3-4. No pain since admission. - EKG and trops neg. No return of sxs - H/o malignancy and COPD, not good candidate for stress, likely MSK vs GERD pain. Will monitor. 3. Hyponatremia - Possibly hypovolemic hyponatremia, mild and chronic in nature present since 2013, h/o EtOH abuse with poor PO intake - Continue IVF. Lytes replaced and improved. BMP pending this AM. 4. Afib with RVR, resolved - RVR resolved with 3L fluids in ED. No return of sxs overnight. - Continue home meds, continue Toprol - Currently on 325mg ASA instead of NOAC 5. Deconditioned/Dehydrated - continue IVF of NS @ 125 - Onc has discussed with pt the option for PEG tube placement in past, pt continues to decline, poor PO intake, will encourage nutritional shakes. 6. H/o Alcohol abuse - 12-15 beers per day. Last drink > 48h prior to admission - no s/s of acute withdrawal, will monitor 7. 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 Cardozo and notified Dr. Gallardo's office, currently undergoing chemo and radiation, apprec recs and assistance. Diet: Regular VTE: Pt continues to refuse lovenox, R/B/A discussed, continue SCDs Code: Full Dispo: Likely neutropenic fevers, Cx neg at 48 hours. Will get Onc recs and anticipate PM discharge with close f/u. Addendum - Attending - Attending Attestation Date/Time: 10/03/18 1210 I personally evaluated the patient and discussed the management with Dr. Paula Fermin. I agree with the History, Examination, Assessment and Plan documented above with any addition or exceptions noted below. Neutropenic fever- no bacterial source identified. Improving ANC. Will discharge home and f/u scheduled with oncology on Saturday am Squamous cell carcinoma- f/u with onc Tobacco and Alcohol use- continued cessation counseling Afib- rate controlled. Stable for d/c home
[2018-10-03] MEDS: Mometasone/Formoterol 120 PUFF INHALER INH SCH (07:07)
[2018-10-03] MEDS: Magnesium Oxide 250 MG TAB PO SCH (08:47)
[2018-10-03] MEDS: Aspirin 325 MG TAB PO SCH (08:48)
[2018-10-03] MEDS: Loratadine 10 MG TAB PO SCH (08:48)
[2018-10-03] MEDS: Thiamine 100 MG TAB PO SCH (08:48)
[2018-10-03] MEDS: Famotidine 20 MG TAB PO SCH (08:48)
[2018-10-03] MEDS: Enoxaparin Sodium 40 MG/0.4 ML SYRINGE SC SCH (08:48)
[2018-10-03] MEDS: Multivitamin W/ Minerals 1 TAB PO SCH (08:48)
[2018-10-03] MEDS: Folic Acid 1 MG TAB PO SCH (08:48)
[2018-10-03] MEDS: Acetaminophen 325 MG TAB PO PRN (08:52)
[2018-10-03 09:57] LABS: Anion Gap 9 mmol/L (10-20); BUN (Urea Nitrogen) 6 mg/dL (8.4-25.7); Calc. Creatinine Clearance 98 mL/min (70-130); Carbon Dioxide 25 mmol/L (22-29); Chloride 96 mmol/L (98-107); Estimated GFR-MDRD Greater than 90; Glucose 116 mg/dL (70-105); Potassium 3.1 mmol/L (3.5-5.1); Sodium 127 mmol/L (136-145)
[2018-10-03 10:00] LABS: Hemoglobin 9.9 g/dL (14.0-18.0); Mean Corpuscular HGB CONC 36.3 g/dL (32.0-36.0); Mean Corpuscular Volume 93.6 fL (78.0-98.0); Mean Platelet Volume 6.3 fL (7.4-10.4); Platelet Count 186 thou/uL (130-400); RBC Distribution Width 13.5 % (11.5-14.5); Red Blood Cell (RBC) Count 2.91 mill/uL (4.70-6.10); White Blood Cell (WBC) Count 1.5 thou/uL (4.8-10.8)
[2018-10-03 10:03] LABS: Band 18 % (5-11); Lymphocytes 28 % (21-51); MDiff Complete? YES; Monocytes 20 % (0-10); Neutrophil 32 % (42-75); Platelet Morphology Comment Appears Adequate; Polychromasia SLIGHT = 2-3 cells (100X) (0-2/hpf); Reactive Lymphocytes 2 % (0-10)
[2018-10-03 11:14] VITALS: BP 118/72; TEMP 99.4
--- NOTE | 2018-10-06 16:09 | DIS ---
DATE OF ADMISSION: 09/30/2018 DATE OF DISCHARGE: 10/03/2018 RESIDENT: Curtis Fermin MD ADMITTING ATTENDING: Tom Drake MD DISCHARGE ATTENDING: Loren Luo MD. CONSULTS: Dr. Jeanette Cardozo, Hematology Oncology. PROCEDURES: 1. Chest x-ray on 09/30/2018. Interstitial prominence and mild pulmonary basilar congestion. No focal consolidation or alveolar edema. 2. Blood cultures x2, no growth at 48 hours. 3. Urine culture, no growth at 48 hours. 4. Respiratory viral panel negative. PRIMARY DIAGNOSES: 1. Neutropenic fever. 2. Atypical chest pain. 3. Hyponatremia. SECONDARY DIAGNOSES: 1. Atrial fibrillation. 2. Deconditioning. 3. History of alcohol abuse. 4. Metastatic keratinizing squamous cell of the right neck. DISCHARGE MEDICATIONS: 1. Thiamine 100 mg p.o. daily. 2. Toprol 25 mg p.o. daily. 3. Aspirin 325 mg p.o. daily. 4. Ranitidine 150 mg p.o. daily. 5. Loratadine 10 mg p.o. daily. 6. Diltiazem 180 mg p.o. b.i.d. 7. ProAir inhaler one puff p.r.n. 8. Magnesium oxide 500 mg p.o. daily. 9. Symbicort 160/4.5 two puffs b.i.d. DISCONTINUED MEDICATIONS: None. HISTORY OF PRESENT ILLNESS AND HOSPITAL COURSE: Mr. Barreto is a 62-year-old male with history of supraglottic cancer, currently undergoing chemo and radiation, who presented to the emergency department for episodic chest pain and fever. He described the chest pain as a pressure in the mid epigastric region, substernal in nature, transient, and lasting for a few minutes with no radiation. He only had one episode of pain on the day of admission, but has had a couple of episodes over the past several weeks. He denies any shortness of breath associated with the pain , but does have chronic shortness of breath due to his COPD. He denies any nausea or vomiting, and states that he has not had a good appetite for several days, but this is mainly due to his radiation. He did note some generalized weakness, but no acute changes and states that he is on a 5th week of chemo and day 24 of radiation at the time of admission. His radiation oncologist is Dr. Sheppard and his medical oncologist is Dr. Cardozo. In the ED, he was noted to have a fever of 101.6. He was saturating well on room air. Blood pressure and heart rate were stable. He was given 3 L normal saline bolus as well as started on vancomycin and cefepime. He was then admitted to the floor for further evaluation and management. Review of systems reveals the patient has cough and shortness of breath chronic in nature, but denied any GI or symptoms. No recent illnesses. No sick contacts and no skin abrasions or changes. His physical examination was unremarkable other than the large 4 cm mass in the right side of his neck as well as radiation rodríguez around his neck from radiation therapy. Initial lab showed an absolute neutrophil count of 440, and a mild hyponatremia of 130, potassium is low at 3.2. On the floor, he was continued on cefepime and vancomycin. Blood and urine cultures were obtained with results as above as well as a respiratory viral panel obtained with results as above. He has a HEART score of 3 or 4. His troponins were trended and negative and EKG did not show any acute changes. His chest pain is most likely attributed to acute musculoskeletal pain due to his chronic cough, shortness of breath, and malignancy. The patient is a chronic alcohol user and drinks up to a case of beer a day and thus, his hyponatremia and dehydration are likely attributed to that. Case was discussed with Dr. Cas Strong's nurse practitioner, who states that they have talked with the patient multiple lines about obtaining a PEG tube for nutrition and hydration and the patient continues to decline. This was discussed with the patient in the hospital and he again declined at this time. In the ED, he was noted to be in atrial fibrillation with RVR, however, this resolved with 3 L of normal saline and he was restarted on home medications and remained in sinus rhythm throughout the remainder of the hospitalization stay. The patient was monitored for any acute signs of withdrawal and did not appear to have any throughout his hospitalization. The patient continued to spike fevers throughout his hospitalization stay, but his absolute neutrophil count did improve to 750 at the time of discharge. Case was discussed with Oncology, they agree that as long as his cultures were negative at 48 hours, and he had no acute signs of infection. The antibiotics could be started and they could follow up with them on Saturday, 3 days after discharge. Hematology Oncology plan was to bring the patient in twice weekly for IV hydration and monitoring of his white blood cell count. Electrolytes were replaced per protocol. At the time of discharge, the patient was eager to be discharged home to continue his radiation and chemotherapy regimen. The patient does not have any acute complaints or concerns. is at the bedside throughout the discussion. Both and the patient voiced agreement understanding of discharge plan and were eager to go home. The patient was then discharged home to self care. DISPOSITION: Stable. DISCHARGE INSTRUCTIONS: 1. Location: Home. 2. Diet: Regular as tolerated. 3. Activity: As tolerated. 4. Followup: The patient to follow up with the primary care physician within 1 week of discharge as well as Dr. Cardozo, his oncologist on 10/06/2018, at 10:00 am. Job ID: [id number] MTDD
== END 2018-10-03 13:13 | disposition home or self-care (01) | DRG 809 ==
LOC: ERS 20:17 → T4-B 22:30
PROVIDERS: ADMIT Family Medicine; ATTEND Family Medicine
DX: D70.9 Neutropenia, unspecified (principal); E87.1 Hypo-osmolality and hyponatremia; C32.1 Malignant neoplasm of supraglottis; J44.9 Chronic obstructive pulmonary disease, unspecified; F17.210 Nicotine dependence, cigarettes, uncomplicated; I48.91 Unspecified atrial fibrillation; I10 Essential (primary) hypertension; R50.81 Fever presenting with conditions classified elsewhere; R07.89 Other chest pain; F10.10 Alcohol abuse, uncomplicated; K21.9 Gastro-esophageal reflux disease without esophagitis; E86.0 Dehydration; E87.6 Hypokalemia; E83.42 Hypomagnesemia; Z79.899 Other long term (current) drug therapy; Z79.82 Long term (current) use of aspirin
CPT/HCPCS: 36415; 71045; 77386; 80048; 80053; 80202; 81003; 81015; 83605; 83735; 83935; 84100; 84145; 84300; 84443; 84484; 85025; 87040; 87086; 87633; 93005; 94760; 96360; 96361; 96365; 96367; J0692; J1650; J3370; J3411; J3475; J3480; J3490; J7050

== ENCOUNTER 2018-10-06 11:46 | Day surgery (SDC) | payer OTHER ==
[2018-10-06 13:44] VITALS: BP 113/55; TEMP 97.7
== END 2018-10-06 15:05 | disposition home or self-care (01) ==
LOC: ONC/OP 11:46
PROVIDERS: ATTEND Internal Medicine Hematology & Oncology
DX: Z51.11 Encounter for antineoplastic chemotherapy (principal); C32.1 Malignant neoplasm of supraglottis
CPT/HCPCS: 96361; 96366; 96375; 96413; J1100; J2150; J2469; J3480; J7050; J9060

== ENCOUNTER 2018-11-27 09:32 | Outpatient (CLI) | payer OTHER ==
--- NOTE | 2018-11-27 11:19 | PET ---
EXAM: PET CT skull apex to mid thigh COMPARISON: None HISTORY: Squamous cell carcinoma of the right neck likely from the piriform sinus TECHNIQUE: A PET/CT was performed from the skull apex to the mid thigh after administration of 11.0 m illicuries of F-18 FDG. Evaluation was performed on a [employer] workstation. FINDINGS: INTRACRANIAL: No areas of increased or decreased uptake of the radiopharmaceutical are seen in the br ain. NECK: There is slight increased asymmetric hypermetabolic activity in the right piriform sinus with a max SUV value of 3.6. There is hypermetabolic activity in the prevertebral soft tissues just above and below the vocal cords with a max SUV value of 3.6. A nonhypermetabolic cyst is seen in the right neck. No enlarged or hypermetabolic cervical lymph nodes are seen. CHEST: No areas of hypermetabolic activity ABDOMEN/PELVIS: No areas of hypermetabolic activity SKELETON: No areas of hypermetabolic activity CT images used for attenuation correction show atherosclerotic calcifications in the carotid arteries .. IMPRESSION: Hypermetabolic activity in the right piriform sinus and the prevertebral soft tissues janice rounding the larynx may represent the patient's known carcinoma.
== END 2018-11-27 09:33 | disposition home or self-care (01) ==
LOC: PET 09:32
PROVIDERS: ATTEND Internal Medicine Hematology & Oncology
DX: C76.0 Malignant neoplasm of head, face and neck (principal)
CPT/HCPCS: 78815; A9552

== ENCOUNTER 2019-05-06 05:55 | Inpatient (IN) | payer OTHER ==
[2019-05-06] MEDS ORDERED: Fentanyl 100 MCG/2 ML VIAL ONE (06:04)
[2019-05-06] MEDS ORDERED: fentaNYL Citrate/PF 2,000 MCG in Sodium Chloride 0.9% 60 ML IV SCH ×2 (06:06→11:42)
[2019-05-06 06:27] LABS: Actual Bicarbonate (HCO3a) 24.7 mEq/L (22-28); Analyzer IN Cardio ER; Base Excess (BEa) -1.9 mEq/L (-2.0 to +3.0); CO2 Tension 49.9 mmHg (35.0-45.0); Calcium, Ionized 1.12 mmol/L (1.12-1.30); Carboxyhemoglobin (COHb) 2.9 gm% (0.0-3.0); Hemoglobin (Hb) 12.9 g/dL (14.0-18.0); O2 Tension (PaO2) 150.6 mmHg (> 80.0); pH, Arterial 7.31 (7.35-7.45)
[2019-05-06 06:29] LABS: ALV-art Gradient 72.225 (0-20); Puncture Site RRA
[2019-05-06] MEDS ORDERED: Clindamycin/D5W 900 mg/50 ml Premix Bag ONE (07:30)
[2019-05-06] MEDS ORDERED: Vancomycin 1 GM/200 ML BAG ONE (07:50)
--- NOTE | 2019-05-06 08:36 | RAD ---
RADIOGRAPH ABDOMEN 1 VIEW: Date: 05/06/2019 Time: 0731 hours HISTORY: 63-year-old male status post intubation. FINDINGS: Esophagogastric tube distal tip is obliquely vertically oriented in left upper quadrant, in the expec niall location of the proximal corpus of the stomach. Stomach is decompressed. Side port of tube is in the expected location of the gastric cardia. IMPRESSION: Esophagogastric tube placement into left upper quadrant, probably in the stomach. POS: CET
--- NOTE | 2019-05-06 08:45 | CT ---
CT OF THE SOFT TISSUES OF THE NECK. INDICATION: A 63-year-old male with transfer from [facility] with complaints of respiratory compromise and a healing wound from a neck surgery. COMPARISON: Prior PET CT dated 11/27/2018. FINDINGS: The patient is intubated with gastric catheter placement. The ET tube is seen within the mainstem tr achea; however, a gastric catheter is coiled within the lower hypopharynx. The ET tube tip and gastr ic catheter distort the tongue within the oral cavity slightly limiting evaluation of the soft tissue s of the oral cavity. There is prominent edematous change involving the soft tissues of the pharynx with the most prominent edematous change noted at the level of the hyoid. There is mild prevertebral soft tissue edema. Th ere is redundancy of the mucosa, the majority of it related to distortion of the anatomy from the pat ient's ET tube and gastric catheter. Previously seen large cystic abnormality near the region of the anterior aspect of the right sternocl eidomastoid muscle has been surgically removed. There is an open wound along the right lateral aspec t of the neck with a small 2.5 cm fluid collection seen at the bed of the surgical excision. This li lucinda is reflective of a postoperative fluid collection. There is a left parapharyngeal air-filled diverticulum that is better detailed than on the prior exam ination. There is prominent soft tissue swelling seen to the level of the vocal cords with a small a mount of fluid seen at the level of the vocal cords likely related to a component of aspiration. The re is fluid present within the posterior aspect of the pharynx. No drainable fluid collection is suleman dent. No pathologically enlarged lymph node is evident. There is thickening of the soft tissues of the low er neck likely related to prior radiation therapy. There is emphysematous change involving the lung apices that is stable to the prior examination. Azygous lobe is again demonstrated. The visualized aspects of the parotid, submandibular, and thyroid gland appear within normal limits. There is a 1.2 cm nodular enhancing lesion seen posterior to the superior pole of the right thyroid lobe that likel y was present on the prior examination. No definite acute osseous abnormality is seen. IMPRESSION: 1. Prominent pharyngeal edema seen at the level of the oral and hypopharynx may reflect sequelae of radiation therapy; however, infectious pharyngitis is not excluded. No drainable fluid collection is evident. The patient is intubated with gastric catheter replacement. The gastric catheter is coile d in the region of the hypopharynx. Recommend repositioning. 2. A 2.5 cm fluid density seen at the base of a right-sided neck wound likely related to a postopera tive fluid collection from resection of the previously seen hypodense mass of the right sternocleidom astoid region. 3. Thickening of the overlying soft tissues of the neck likely related to prior radiation therapy. 4. Enhancing lesion seen along the posterior margin of the superior pole of the right thyroid gland. This may reflect an enlarged lymph node; however, entities such as a parathyroid adenoma cannot be entirely excluded. Would recommend correlation with the patient's PTH levels and calcium levels. 5. Air fluid level within the left maxillary sinus is nonspecific and may reflect sinusitis. 6. Fluid in the oropharynx as well as at the level of the vocal cords suspicious for aspiration. Re commend suctioning. POS: MARILY
[2019-05-06] MEDS ORDERED: Acetaminophen 650 MG Suppository PR PRN (08:53)
[2019-05-06] MEDS ORDERED: Ondansetron PF 4 MG/2 ML Vial IVP PRN (08:53)
[2019-05-06] MEDS ORDERED: Propofol 1,000 MG/100 ML VIAL IV ONE (09:45)
[2019-05-06] MEDS: Thiamine 100 MG TAB PO SCH (10:57)
[2019-05-06] MEDS: Aspirin 325 MG TAB PO SCH (10:57)
[2019-05-06] MEDS ORDERED: Propofol 1,000 MG/100 ML VIAL IV PRN (11:42)
[2019-05-06] MEDS ORDERED: Fentanyl BOLUS 250 ML IVPB PRN (11:42)
[2019-05-06] MEDS: Sodium Chloride 0.9% 1,000 ML IV SCH (11:42)
[2019-05-06] MEDS ORDERED: Morphine 2 MG/ML SYRINGE SLOW IVP PRN (11:42)
[2019-05-06] MEDS ORDERED: Lorazepam 2 MG/ML VIAL SLOW IVP PRN (11:42)
[2019-05-06] MEDS ORDERED: DISCONTINUE PREVIOUS NARCOTIC PAIN MEDICATIONS AND BENZODIAZEPINES FS SCH (11:42)
[2019-05-06] MEDS ORDERED: Propofol BOLUS 1,000 MG/100 ML VIAL IV PRN (11:42)
[2019-05-06] MEDS ORDERED: Iopamidol-370 76% 500 ML 1 ML ONE (15:15)
[2019-05-06] MEDS: BEER 1 CAN PO SCH (17:16)
[2019-05-06] MEDS: Mometasone/Formoterol 120 PUFF INHALER INH SCH (19:10)
--- NOTE | 2019-05-06 19:34 | HP ---
CHIEF COMPLAINT: Shortness of breath and stridor. HISTORY OF PRESENT ILLNESS: A 63-year-old male with recent diagnosis of neck cancer and completed chemo radiation in June 2018 and ongoing small swelling and lump in his neck that was resected 2 weeks ago roughly by ENT, Dr. Thony Westfall at [facility]. He is on prednisone since then. The cyst was removed 2 weeks ago. During that time, he did have intubation. Wound was healing by secondary intention. He has a followup tomorrow to see Dr. Thony westfall. However, he noticed several days of shortness of breath, stridor, and hoarseness. He went to [facility] and in respiratory distress. Shortness of breath got worse requiring intubation. The patient also has underlying history of COPD. Chest x-ray was negative. White count was 11.1. EKG showed atrial fibrillation, rate controlled. CT of the neck showed edema with fluid collection. Also appeared to have some pharyngitis. In the ER here, he received clindamycin and vancomycin. He also received Solu-Medrol 125 IV. Repeat blood gas with a pH of 7.3, pCO2 of 49. The patient will be admitted in the ICU for further care. REVIEW OF SYSTEMS: Not obtainable. ALLERGIES: NO KNOWN DRUG ALLERGY. PAST MEDICAL HISTORY: 1. Recent diagnosis of neck cancer, completed chemo and radiation in June 2018. 2. COPD, noncompliant with inhalers. 3. Hypertension. 4. Ongoing active tobacco and alcohol abuse. MEDICATIONS: He is on; 1. Cephalexin 500 mg 3 times a day. 2. Symbicort twice a day. 3. Aspirin 325 mg daily. 4. Proventil. 5. Toprol-XL 25 mg daily. 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 He still smokes and drinks. Lives with his . PHYSICAL EXAMINATION: VITAL SIGNS: Temp is 97.8, pulse 84, and blood pressure 90/53. GENERAL: The patient is intubated. Talked to the as well as the RN, who was taking care of him. HEENT: He has a dressing on the right side of the neck. CARDIOVASCULAR: Irregular rhythm, regular rate. LUNGS: Anterior auscultation of the lungs did not reveal any adventitious lung sounds. ABDOMEN: Soft, nontender, and nondistended. Good bowel sounds. EXTREMITIES: Without any pitting edema or rash. LABORATORY DATA: Labs done at [facility] showed white count of 11. His chest x-ray is negative for infiltrate. IMPRESSION AND PLAN: This is a 63-year-old male with a history of head and neck cancer, had chemo and radiation treatment in June 2018, presenting with the following; 1. Acute respiratory failure. 2. Requiring intubation. 3. Recent cyst resection in the neck. 4. Hypertension. 5. Chronic obstructive pulmonary disease. 6. History of atrial fibrillation and not on any anticoagulants. 7. Continue the ICU management. Vent management. Continue with vancomycin and Zosyn until more clinical picture evolves. I have ENT consult with Dr. Rader. Solu-Medrol 60 daily until more clinical picture evolves. Wound Care consult. Rest of the management based on the clinical course. Hypertension. Continue with his Toprol home regimen. Deep venous thrombosis prophylaxis, for now SCDs only. Job ID: [id number] MTDD
[2019-05-06] MEDS ORDERED: Vancomycin HCl 750 MG in Sodium Chloride 0.9% 250 ML 250 ML IVPB SCH (20:00)
[2019-05-06] MEDS: Piperacillin/Tazobactam 3.375 GM in Sodium Chloride 0.9% 100 ML IVPB SCH (22:04)
[2019-05-07] MEDS: Sodium Chloride 0.9% 1,000 ML IV SCH (02:14)
[2019-05-07 04:04] LABS: #Basophils 0.1 thou/uL (0.0-0.2); #Eosinphils 0.1 thou/uL (0.0-0.7); #Lymphocytes 0.5 thou/uL (1.20-3.40); #Monocytes 0.9 thou/uL (0.11-0.59); #Neutrophils 5.4 thou/uL (1.40-6.50); %Basophils 1.5 % (0.0-1.0); %Eosinophils 0.8 % (0.0-10.0); %Lymphocytes 7.3 % (21.0-51.0); %Monocytes 12.8 % (0.0-10.0); %Neutrophils 77.7 % (42.0-75.0); Hemoglobin 12.3 g/dL (14.0-18.0); Mean Corpuscular Hemoglobin 36.3 pg (27.0-31.0); Mean Platelet Volume 5.9 fL (7.4-10.4); Platelet Count 279 thou/uL (130-400); RBC Distribution Width 11.9 % (11.5-14.5); White Blood Cell (WBC) Count 6.9 thou/uL (4.8-10.8)
[2019-05-07] MEDS: Piperacillin/Tazobactam 3.375 GM in Sodium Chloride 0.9% 100 ML IVPB SCH ×2 (05:49→14:40)
[2019-05-07] MEDS: Mometasone/Formoterol 120 PUFF INHALER INH SCH ×2 (06:35→19:24)
[2019-05-07] MEDS: Thiamine 100 MG TAB PO SCH (08:21)
[2019-05-07] MEDS: Aspirin 325 MG TAB PO SCH (08:21)
[2019-05-07] MEDS ORDERED: methylPREDNISolone Sod Succ/PF 125 MG/2 ML VIAL IVP SCH (09:00)
--- NOTE | 2019-05-07 09:53 | CON ---
DATE OF CONSULTATION: 05/06/2019 HISTORY OF PRESENT ILLNESS: Mr. Barreto is a 63-year-old male with history of chemoradiation within the last year for head and neck cancer. He had a lesion in his right neck that was benign apparently. He presented with complaints of shortness of breath. His family says he has COPD. He was intubated with a 5.5 endotracheal tube and transferred for further care. He has subsequently been seen by Dr. Gloria, who has endoscoped him. He was actually able to get an endoscope through his cords around the endotracheal tube since it was such a small tube and found no evidence of tracheal obstruction or an upper airway obstruction. Reviewing records from emergency department, concern of having upper airway issues. He had a soft tissue CT of his neck done this morning. He had already been intubated when this was done. Nothing identifying surgical _. Soft tissue of his neck done at 3 in the morning suggestive of laryngeal . PHYSICAL EXAMINATION: VITAL SIGNS: His heart rate is 80, blood pressure . Sclerae are anicteric. He has loud leak when the cuff is deflated .secondary intention LUNGS: Clear. HEART: Regular rhythm. ABDOMEN: Soft and nontender. LABORATOR DATA: White count 11.1, . we felt there was . There is no clear obstruction. He will continue with current medications. He was subsequently extubated. Sedation protocol will be . We will continue with IV steroids and antimicrobial therapy. wound does not appear to be infected in his right lateral neck. He is not receiving nebulizer treatments routinely. Those will be added . Critical care time 35 min. Job ID: [id number] MTDD
[2019-05-07] MEDS: BEER 1 CAN PO SCH ×3 (10:33→18:42)
--- NOTE | 2019-05-07 12:08 | PRG ---
DATE OF SERVICE: 05/07/2019 SUBJECTIVE: Janes Barreto has no complaints. He is not stridorous. He does have inspiratory noise, consistent with someone who has been radiated for throat cancer. OBJECTIVE: VITAL SIGNS: He is afebrile, heart rate 74, respiratory rate 17, and oximetry is 99 on room air. LUNGS: Distant and clear. HEART: Regular rhythm. ABDOMEN: Soft. IMPRESSION: 1. Status post intubation. 2. Tobacco use up until this admission. 3. Recent diagnosis and treatment for throat cancer. 4. Probable underlying chronic obstructive pulmonary disease. PLAN: I suspect COPD and bronchospasm played more of a role in getting him intubated. I suspect that with his work of breathing increasing, he probably made more upper airway noise. Anything that would lead upper airway obstruction acutely would not have resolved as quickly as this episode appeared to, so it is more likely that he has a fixed upper airway obstruction aggravated by a COPD exacerbation in my opinion. He can transfer out of the critical care unit today. The antimicrobial therapy can be converted to p.o. antibiotics and steroids can be converted to p.o. steroids in my opinion. He may be a candidate to go home tomorrow with a nebulizer. Job ID: [id number]
[2019-05-07 13:05] VITALS: BMI 16.3
--- NOTE | 2019-05-07 16:12 | PDOC.HOSPP ---
- Subjective Encounter Date: 05/07/19 Encounter Time: 11:35 Subjective: extubated, stable to go to the floor, ENT has seen him y'day. - Objective Vital Signs & Weight: Vital Signs (12 hours) Temp Pulse Resp Pulse Ox 05/07/19 14:38 96 14 97 05/07/19 11:00 98.3 F 05/07/19 10:51 74 17 99 05/07/19 07:23 94 L 05/07/19 07:00 98.5 F 05/07/19 06:32 72 13 99 Weight Admit Weight 130 lb 15.273 oz Weight 130 lb 15.273 oz Most Recent Monitor Data Heart Rate from ECG 71 NIBP 139/75 NIBP BP-Mean 96 Respiration from ECG 17 SpO2 99 I&O: 05/06/19 05/07/19 05/08/19 06:59 06:59 06:59 Intake Total 1587 449 Output Total 2290 150 Balance -703 299 Result Diagrams: 05/07/19 03:18 Hospitalist ROS - Medication Medications: Active Medications Generic Name Dose Route Start Last Admin Trade Name Freq PRN Reason Stop Dose Admin Albuterol/Ipratropium 3 ml 05/06/19 19:00 05/07/19 14:38 Duoneb NEB 3 ml [id number] CARLOS MANUEL Administration Aspirin 325 mg 05/06/19 09:00 05/07/19 08:21 Aspirin PO 325 mg DAILY CARLOS MANUEL Administration Beer 1 each 05/06/19 17:00 05/07/19 13:20 Beer PO Not Given TID-WM CARLOS MANUEL Piperacillin Sod/Tazobactam 100 mls @ 200 mls/hr 05/06/19 22:00 05/07/19 14: 40 Sod 3.375 gm/ Sodium Chloride IVPB 100 mls Q8HR CARLOS MANUEL Administration Methylprednisolone Sodium Succinate 60 mg 05/07/19 09:00 05/07/19 08:21 Solu-Medrol IVP 60 mg DAILY CARLOS MANUEL Administration Metoprolol Succinate 25 mg 05/06/19 21:00 05/06/19 20:58 Toprol Xl PO 25 mg HS CARLOS MANUEL Administration Mometasone Furoate/Formoterol Fumar 2 puff 05/06/19 18:30 05/07/19 06:35 Dulera 200 Mcg/5 Mcg Inhaler INH 2 puff BID-RT CARLOS MANUEL Administration Sodium Chloride 10 ml 05/06/19 21:00 05/07/19 08:21 Flush - Normal Saline IVF 10 ml Q12HR CARLOS MANUEL Administration Thiamine HCl 100 mg 05/06/19 09:00 05/07/19 08:21 Thiamine PO 100 mg DAILY CARLOS MANUEL Administration - Exam General Appearance: NAD Eye: PERRL ENT: normocephalic atraumatic Neck - other findings: right side dressing w.. recnet cyst removal Heart: RRR Respiratory: CTAB, normal chest expansion Gastrointestinal: soft, normal bowel sounds Extremities: no cyanosis Neurological: cranial nerve grossly intact, no focal deficits Hosp A/P - Plan COPD exacerbation ACute resp failure [id number] and upper airway obstruciton r/o and resp failure due to COPD exacer and bronchospasm Recent Neck cyst removal HTN switched from IV to PO abx and prednisone. if stable, plan for dc in 1 to 2 days.
[2019-05-07] MEDS ORDERED: BEER 1 CAN PO SCH (19:30)
[2019-05-07] MEDS: Doxycycline 100 MG CAP PO SCH (20:43)
[2019-05-08] MEDS: Mometasone/Formoterol 120 PUFF INHALER INH SCH (05:22)
[2019-05-08 05:43] LABS: #Eosinphils 0.1 thou/uL (0.0-0.7); #Monocytes 0.9 thou/uL (0.11-0.59); #Neutrophils 4.2 thou/uL (1.40-6.50); %Basophils 0.2 % (0.0-1.0); %Eosinophils 1.4 % (0.0-10.0); %Lymphocytes 15.9 % (21.0-51.0); %Monocytes 14.3 % (0.0-10.0); %Neutrophils 68.1 % (42.0-75.0); Hemoglobin 12.5 g/dL (14.0-18.0); Mean Corpuscular HGB CONC 35.3 g/dL (32.0-36.0); Mean Corpuscular Hemoglobin 35.6 pg (27.0-31.0); Mean Platelet Volume 5.9 fL (7.4-10.4); Platelet Count 264 thou/uL (130-400); RBC Distribution Width 11.8 % (11.5-14.5); Red Blood Cell (RBC) Count 3.52 mill/uL (4.70-6.10); White Blood Cell (WBC) Count 6.2 thou/uL (4.8-10.8)
[2019-05-08] MEDS ORDERED: predniSONE 50 MG TAB PO SCH (08:00)
[2019-05-08 09:21] LABS: Anion Gap 11 mmol/L (10-20); BUN (Urea Nitrogen) 11 mg/dL (8.4-25.7); Calc. Creatinine Clearance 89 mL/min (70-130); Calcium 8.7 mg/dL (7.8-10.44); Carbon Dioxide 28 mmol/L (23-31); Chloride 91 mmol/L (98-107); Estimated GFR-MDRD Greater than 90; Glucose 85 mg/dL (80-115); Potassium 3.7 mmol/L (3.5-5.1); Sodium 126 mmol/L (136-145)
[2019-05-08] MEDS: Doxycycline 100 MG CAP PO SCH (10:22)
[2019-05-08] MEDS: Aspirin 325 MG TAB PO SCH (10:22)
[2019-05-08] MEDS: BEER 1 CAN PO SCH ×3 (10:22→17:05)
[2019-05-08] MEDS: Thiamine 100 MG TAB PO SCH (10:23)
--- NOTE | 2019-05-08 12:32 | PQF ---
CLINICAL DOCUMENTATION IMPROVEMENT CLARIFICATION FORM: ICD-10 Updated PLEASE DO AN ADDENDUM TO THE PROGRESS NOTE WITH ANY DOCUMENTATION UPDATES OR ADDITIONS AND CARRY THROUGH TO DC SUMMARY. THANK YOU. Date: 05/08/2019 ATTN: Dr. Rosenthal Please exercise your independent, professional judgment in responding to the clarification form. Clinical indicators are provided on the bottom of this form for your review Please check appropriate box(s): [ ] Protein Calorie Malnutrition: [ ] Mild [ ] Moderate [ ] Severe [ ] Other Malnutrition (please specify) [ ] Underweight without malnutrition [ ] Other diagnosis [ x] Unable to determine In addition, please specify: Present on Admission (POA): [ ] Yes [ ] No [ ] Unable to determine CLINICAL INDICATORS - SIGNS / SYMPTOMS / LABS / RESULTS AND LOCATION IN MR Rn Assessment Assessment 05/06: BMI 16.3 Nutrition diagnosis: Malnutrition related to cancer As evidenced By: 25.6% weight loss in last 7 months, severe fat and muscle wasting to temples, cheeks, collar bone, chest and arms suggestive of severe malnutrition in the context of chronic illness. RISKS: H&P 05/05: 63 yo with history of head and neck cancer, had chemo and radiation tx in June 2018, presenting with Acute respiratory failure. Requiring intubation. Recent cyst resection in the neck. HTN. COPD . TREATMENT: Rn Assessment Assessment 05/06 for wound care consult received; Vent, MST( Malnutrition Screening Tool) of 3 for wt loss, poor appetite, BMI. 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 Moderate Malnutrition (in chronic illness) Energy Intake: <75% of estimated energy requirement for >1 month Weight Loss: 5%/1 month; 7.5%/3 months; 10%/6 months; 20%/1 year Other: mild body fat loss; mild muscle mass loss; mild fluid accumulation Severe Malnutrition (in chronic illness) Energy Intake: <75% of estimated energy requirement for >1 month Weight Loss: >5%/1 month; >7.5%/3 months; >10%/6 months; >20%/1 year Other: severe body fat loss; severe muscle mass loss; severe fluid accumulation; 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 All Rights Reserved Chantal Marcial RN, BSN [email or web address] Office: [phone] [facility]OSPITALAnne Marie
[2019-05-08 16:19] VITALS: BP 137/81; TEMP 98.2
--- NOTE | 2019-05-08 19:05 | PRG ---
DATE OF SERVICE: 05/08/2019 Mr. Barreto was not examined today. His was desperate to get home for dark. I came up to drop off his prescription for ipratropium and albuterol and he had gone. The nurse said they would fax it to his pharmacy. I am told that he was doing well today with no distress. He will have a followup along with his oncologist. I explained yesterday that I would be happy to follow him as an outpatient and see him in 3 to 4 weeks. He should use ipratropium and albuterol in his nebulizer 3 to 4 times a day. Job ID: [id number]
--- NOTE | 2019-05-08 19:30 | DIS ---
DATE OF ADMISSION: 05/06/2019 DATE OF DISCHARGE: 05/08/2019 DISCHARGE DIAGNOSES: 1. Chronic obstructive pulmonary disease exacerbation. 2. Acute respiratory failure requiring intubation. 3. Pharyngitis and upper airway obstruction, ruled out as respiratory failure due to mostly chronic obstructive pulmonary disease exacerbation and bronchospasm rather than significant upper airway obstruction. 4. Status post recent neck cyst removal. 5. Recent diagnosis of neck cancer, completed chemo and radiation in June 2018, and chronic obstructive pulmonary disease with noncompliant with inhalers. 6. Hypertension. 7. Ongoing active tobacco abuse. DISCHARGE MEDICATIONS: 1. Aspirin 325 mg daily. 2. Symbicort 2 puffs twice a day. 3. Toprol-XL 25 mg daily. 4. Albuterol 1 puff p.r.n. as needed every 4 hours. 5. Cephalexin 500 mg three times a day. He has some cefdinir already at home and I have prescribed for another 5 more days. PHYSICAL EXAMINATION: VITAL SIGNS: On the day of discharge, temperature 97.8, pulse 94, blood pressure of 126/79, saturating 92% on room air. GENERAL: The patient is alert, oriented. He still has hoarse voice, but he is very stable. He does not have any other respiratory compromise at this time. He is able to talk to me with few sentences. However, he still has cough. He has right neck dressing. CARDIOVASCULAR: Regular rate and rhythm without murmurs, rubs, or gallops. LUNGS: Clear to auscultation bilaterally without wheezing, rales, or rhonchi. ABDOMEN: Soft, nontender, nondistended. Good bowel sounds. CONSULTS: Dr. Elliott Cosby. HOSPITAL COURSE: This is a 63-year-old male with a diagnosis of neck cancer. He completed his chemo and radiation last year and had a neck cyst that was removed electively by Dr. Thony Escobar 2 weeks ago, presented with shortness of breath and obstruction like symptoms. In the ER, he was intubated. Next day in the ICU, he was extubated by Dr. Cosby. [place] that this is mostly due to COPD exacerbation rather than any significant obstructions. He was transitioned from IV to p.o. antibiotic and short course of prednisone. He does have increased breathing work that made the upper airway noise more significant and sounded like a stridor, but it is not any obstruction as he was extubated within short period of time, so it more likely that he has a fixed upper airway obstruction aggravated by COPD exacerbation per Dr. Cosby's opinion. The patient is discharged hemodynamically in stable condition with close followup with Dr. Thony Escobar. DISCHARGE INSTRUCTION: Activity as tolerated. Regular diet. Follow up with Dr. Thony Escobar per their clinic appointment. Follow up with PCP in one week. TIME SPENT: Discharge time took over 30 minutes. Job ID: [id number] MTDD
--- NOTE | 2019-05-12 16:05 | CON ---
DATE OF CONSULTATION: 05/06/2019 HISTORY OF PRESENT ILLNESS: The patient was seen in consultation by Dr. Rosenthal on May 05. The patient is seen in consult for evaluation of possible extubation. This is a patient with a history of head and neck cancer, who has currently been showing no evidence of disease since his definitive radiation and chemo protocol 2 years ago. He recently had excisional biopsy of a mass approximately 2 weeks ago, which was noted to be benign. No evidence of cancer. He has had bronchitis, shortness of breath, and symptoms of early pneumonias, which can complicate his underlying COPD. He presented to the emergency room with shortness of breath and they had performed intubation as the patient has required ventilation and a 5.5 endotracheal tube was used for fear of possible subglottic stenosis. The patient has responded to IV steroids and IV antibiotics and is currently in the ICU and he is doing very well. His endotracheal tube cuff was deflated. The patient has a very large leak around it and is requesting extubation. The patient had previously been discussed about possible tracheotomy and has refused multiple times per the patient's report and the family's report. PAST MEDICAL HISTORY: 1. History of head and neck cancer. 2. COPD. PAST SURGICAL HISTORY: Recent right neck excisional biopsy. PHYSICAL EXAMINATION: The patient is resting comfortably in the bed with minimal sedation. He has large leak around the deflated cuff of the endotracheal tube. He is actually able to phonate around it. Flexible laryngoscopy was performed at the bedside. Nasal cavity and nasopharynx . There were radiation changes to the base of tongue and laryngeal surfaces, but no evidence of mucosal lesions. The laryngoscope was actually able to be passed to the level of vocal cords. The subglottic area appears patent with no evidence of subglottic stenosis or airway lesions. ASSESSMENT: 1. Acute exacerbation of chronic obstructive pulmonary disease with bronchitis. 2. History of head and neck cancer, currently no evidence of disease. PLAN: I do feel the patient is safe for extubation per the Pulmonary protocols. We do not anticipate any acute airway obstruction secondary to his history of cancer. Job ID: [id number]
== END 2019-05-08 17:00 | disposition home or self-care (01) | DRG 208 ==
LOC: ERS 05:55 → CCU 08:33 → SJJU 05-07 12:02
PROVIDERS: ADMIT Internal Medicine; ATTEND Internal Medicine
PROC: 0BH17EZ Insertion of Endotracheal Airway into Trachea, Via Natural or Artificial Opening (ICD-10-PCS; principal; 2019-05-06)
PROC: 5A1935Z Respiratory Ventilation, Less than 24 Consecutive Hours (ICD-10-PCS; 2019-05-06)
DX: J96.00 Acute respiratory failure, unspecified whether with hypoxia or hypercapnia (principal); J44.1 Chronic obstructive pulmonary disease with (acute) exacerbation; J02.9 Acute pharyngitis, unspecified; C76.0 Malignant neoplasm of head, face and neck; I10 Essential (primary) hypertension; I48.91 Unspecified atrial fibrillation; F17.210 Nicotine dependence, cigarettes, uncomplicated; Z91.19 Patient's noncompliance with other medical treatment and regimen; Z79.01 Long term (current) use of anticoagulants
CPT/HCPCS: 36415; 70491; 74018; 80048; 82805; 85025; 94002; 94640; 96365; 96366; 96368; 96376; J2543; J2704; J2930; J3010; J3370; J3490; J7512; J7620; Q9967

== ENCOUNTER 2019-05-12 16:56 | Emergency (ER) | payer OTHER ==
[2019-05-12 17:23] LABS: #Eosinphils 0.1 thou/uL (0.0-0.7); #Lymphocytes 0.9 thou/uL (1.20-3.40); #Monocytes 0.9 thou/uL (0.11-0.59); #Neutrophils 7.3 thou/uL (1.40-6.50); %Basophils 0.4 % (0.0-1.0); %Eosinophils 1.5 % (0.0-10.0); %Lymphocytes 9.5 % (21.0-51.0); %Monocytes 10.1 % (0.0-10.0); %Neutrophils 78.5 % (42.0-75.0); Hemoglobin 13.1 g/dL (14.0-18.0); Mean Corpuscular HGB CONC 35.4 g/dL (32.0-36.0); Mean Corpuscular Hemoglobin 36.1 pg (27.0-31.0); Mean Platelet Volume 5.7 fL (7.4-10.4); Platelet Count 294 thou/uL (130-400); RBC Distribution Width 11.8 % (11.5-14.5); Red Blood Cell (RBC) Count 3.63 mill/uL (4.70-6.10); White Blood Cell (WBC) Count 9.3 thou/uL (4.8-10.8)
[2019-05-12 17:44] LABS: ALT (SGPT) 18 U/L (8-55); AST (SGOT) 16 U/L (5-34); Albumin 3.7 g/dL (3.4-4.8); Alkaline Phosphatase 102 U/L (40-110); Anion Gap 13 mmol/L (10-20); BUN (Urea Nitrogen) 11 mg/dL (8.4-25.7); Bilirubin, Total 1.2 mg/dL (0.2-1.2); Calc. Creatinine Clearance 0 mL/min (70-130); Calcium 9.2 mg/dL (7.8-10.44); Carbon Dioxide 27 mmol/L (23-31); Chloride 91 mmol/L (98-107); Estimated GFR-MDRD Greater than 90; Globulin 2.6 g/dL (2.4-3.5); Glucose 90 mg/dL (80-115); Potassium 3.9 mmol/L (3.5-5.1); Protein, Total 6.3 g/dL (5.8-8.1); Sodium 127 mmol/L (136-145)
--- NOTE | 2019-05-12 17:59 | RAD ---
PORTABLE CHEST: 05/12/19 HISTORY: Dyspnea. COMPARISON: 05/06/19. Lungs are well aerated and are clear. No infiltrate. No vascular congestion or edema. Heart and media stinum unremarkable. IMPRESSION: No acute process. POS: [facility]
== END 2019-05-12 20:04 | disposition home or self-care (01) ==
LOC: ERS 16:56
DX: R06.00 Dyspnea, unspecified (principal); I25.10 Atherosclerotic heart disease of native coronary artery without angina pectoris; I48.91 Unspecified atrial fibrillation; J44.9 Chronic obstructive pulmonary disease, unspecified; F17.210 Nicotine dependence, cigarettes, uncomplicated; Z79.82 Long term (current) use of aspirin; Z79.51 Long term (current) use of inhaled steroids; Z79.899 Other long term (current) drug therapy
CPT/HCPCS: 71045; 80053; 84484; 85025; 93005; 94640; 96360; 96361; J7620

== ENCOUNTER 2019-06-07 09:04 | Inpatient (IN) | payer OTHER ==
[2019-06-07 09:40] LABS: #Eosinphils 0.1 thou/uL (0.0-0.7); #Lymphocytes 0.5 thou/uL (1.20-3.40); #Monocytes 0.5 thou/uL (0.11-0.59); #Neutrophils 5.6 thou/uL (1.40-6.50); %Eosinophils 1.1 % (0.0-10.0); %Lymphocytes 6.9 % (21.0-51.0); %Monocytes 6.9 % (0.0-10.0); %Neutrophils 85.1 % (42.0-75.0); Hemoglobin 12.6 g/dL (14.0-18.0); Mean Corpuscular HGB CONC 35.5 g/dL (32.0-36.0); Mean Corpuscular Hemoglobin 35.2 pg (27.0-31.0); Mean Corpuscular Volume 99.2 fL (78.0-98.0); Mean Platelet Volume 5.7 fL (7.4-10.4); Platelet Count 250 thou/uL (130-400); RBC Distribution Width 12.3 % (11.5-14.5); Red Blood Cell (RBC) Count 3.59 mill/uL (4.70-6.10); White Blood Cell (WBC) Count 6.6 thou/uL (4.8-10.8)
[2019-06-07] MEDS ORDERED: methylPREDNISolone Sod Succ/PF 125 MG/2 ML VIAL ONE (09:45)
[2019-06-07] MEDS ORDERED: Magnesium 2 GM/50 ML BAG (IN WATER) ONE (09:45)
[2019-06-07] MEDS ORDERED: Diltiazem 125 MG/25 ML ONE (09:46)
[2019-06-07 09:48] LABS: ALT (SGPT) 14 U/L (8-55); AST (SGOT) 14 U/L (5-34); Albumin 3.8 g/dL (3.4-4.8); Alkaline Phosphatase 91 U/L (40-110); Anion Gap 14 mmol/L (10-20); BUN (Urea Nitrogen) 4 mg/dL (8.4-25.7); Bilirubin, Total 1.1 mg/dL (0.2-1.2); Calc. Creatinine Clearance 0 mL/min (70-130); Calcium 8.8 mg/dL (7.8-10.44); Carbon Dioxide 27 mmol/L (23-31); Chloride 78 mmol/L (98-107); Estimated GFR-MDRD Greater than 90; Globulin 2.6 g/dL (2.4-3.5); Glucose 99 mg/dL (80-115); Potassium 4.1 mmol/L (3.5-5.1); Protein, Total 6.4 g/dL (5.8-8.1)
[2019-06-07 09:52] LABS: Sodium 115 mmol/L (136-145)
[2019-06-07] MEDS ORDERED: Diltiazem HCl 125 MG, Admixture Fee 1 EACH in Sodium Chloride 0.9% 100 ML IVPB SCH (10:00)
[2019-06-07] MEDS ORDERED: Ondansetron ODT 4 MG TAB SL PRN (12:28)
[2019-06-07] MEDS ORDERED: Ondansetron PF 4 MG/2 ML Vial IVP PRN ×2 (12:28→13:32)
[2019-06-07 12:59] LABS: Actual Bicarbonate (HCO3a) 28.3 mEq/L (22-28); Base Excess (BEa) 3.8 mEq/L (-2.0 to +3.0); CO2 Tension 42.3 mmHg (35.0-45.0); Calcium, Ionized 1.09 mmol/L (1.12-1.30); Carboxyhemoglobin (COHb) 3.2 gm% (0.0-3.0); Hemoglobin (Hb) 12.8 g/dL (14.0-18.0); O2 Tension (PaO2) 98.1 mmHg (> 80.0); Puncture Site RRA; pH, Arterial 7.44 (7.35-7.45)
[2019-06-07 13:00] LABS: ALV-art Gradient 48.665 (0-20)
[2019-06-07] MEDS ORDERED: Acetaminophen 500 MG TAB PO PRN (13:32)
[2019-06-07] MEDS ORDERED: Ondansetron ODT 4 MG TAB PO PRN (13:32)
[2019-06-07] MEDS ORDERED: Diltiazem 125 MG in Sodium Chloride 0.9% 100 ML IVPB SCH (13:32)
[2019-06-07] MEDS ORDERED: PROVENTIL INHALER 6.7 G (200 INHALATIONS) INH SCH (13:32)
[2019-06-07] MEDS ORDERED: Benzonatate 100 MG CAP PO PRN (13:32)
[2019-06-07] MEDS ORDERED: Mometasone 200 MCG/Formoterol 5 MCG 120 PUFF INHALER INH SCH (14:00)
[2019-06-07 14:12] LABS: Troponin I Less than 0.010 ng/mL (< 0.028)
[2019-06-07] MEDS ORDERED: Albuterol Sulfate 2.5 mg/3 ml Neb NEB SCH (14:30)
--- NOTE | 2019-06-07 15:00 | HP ---
PRIMARY CARE PROVIDER: Diana Cueva PA-C CHIEF COMPLAINT: Shortness of breath. HISTORY OF PRESENT ILLNESS: This is a 63-year-old male who presents to [facility] Emergency Department complaining of increased shortness of breath in the last 24 to 48 hours. The patient with a significant history of chronic obstructive pulmonary disease with recent admission 05/06/2019 through 05/08/2019 for COPD exacerbation and respiratory failure requiring intubation briefly. The patient states he was discharged home and continued on bronchodilator therapy as well as nebulized treatments and prednisone taper. The patient states he has completed his prednisone over approximately the last week when he noted increasing shortness of breath symptoms. The patient denied any documented fever, chills, travel history, or exposure. The patient denied any productive cough. The patient does admit to continuing to use tobacco products. In the emergency room, the patient underwent general evaluation including vital sign assessment showing tachycardia. The patient was placed on EKG monitoring showing atrial fibrillation with rapid ventricular response with heart rates in the 130s. The patient was initiated on Cardizem infusion after receiving a 20 mg IV push bolus. The patient also received IV Solu-Medrol, magnesium sulfate, and DuoNeb therapy. PAST MEDICAL HISTORY: 1. Acute on chronic hypoxic respiratory failure. 2. Chronic obstructive pulmonary disease. 3. Tobacco abuse, ongoing. 4. History of paroxysmal atrial fibrillation. 5. Hypertension. 6. Head and neck carcinoma, status post chemotherapy and radiation in June 2018. PAST SURGICAL HISTORY: Status post right neck cyst removal. CURRENT MEDICATIONS: 1. Proventil HFA 1 puff inhaled q.4 to 6 hours p.r.n. 2. Enteric-coated aspirin 325 mg p.o. daily. 3. Symbicort 160/4.5 two puffs inhaled b.i.d. 4. Metoprolol succinate 25 mg p.o. daily. ALLERGIES: NO KNOWN DRUG ALLERGIES. FAMILY HISTORY: Positive for hypertension. 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 Smokes up to a pack of cigarettes daily. Alcohol use regularly. No illicit drug use. . REVIEW OF SYSTEMS: CONSTITUTIONAL: Negative for weight loss or gain, ability to conduct usual activities. SKIN: Negative for rash, itching. EYES: Negative for double vision, pain. ENT/MOUTH: Negative for nose bleeding, neck stiffness, pain, tenderness. CARDIOVASCULAR: Negative for palpitations, dyspnea on exertion, orthopnea. RESPIRATORY: Negative for shortness of breath, wheezing, cough, hemoptysis, fever or night sweats. GASTROINTESTINAL: Negative for poor appetite, abdominal pain, heartburn, nausea, vomiting, constipation, or diarrhea. GENITOURINARY: Negative for urgency, frequency, dysuria, nocturia. MUSCULOSKELETAL: Negative for pain, swelling. NEUROLOGIC/PSYCHIATRIC: Negative for anxiety, depression. ALLERGY/IMMUNOLOGIC: Negative for skin rash, bleeding tendency. Otherwise, negative except as stated per HPI. PHYSICAL EXAMINATION: VITAL SIGNS: On admission, blood pressure 129/107, pulse 115, respiratory rate 17, temperature 99.9 degrees Fahrenheit rectally. O2 saturation 100% on 2 L/minute by nasal cannula. GENERAL APPEARANCE: This is a 63-year-old male, alert and oriented x3, pleasant, responsive, in mild respiratory distress. HEENT: Pupils are equal, round, and reactive to light and accommodation. Extraocular muscles are intact. No scleral icterus. No conjunctival injection. Nares patent. OP is clear. No oral lesions noted. NECK: Supple. No cervical adenopathy. No thyromegaly. No carotid bruits. Radiation induced changes of the right neck noted. No meningeal signs noted. CHEST: Decreased breath sounds bilaterally with expiratory wheezing. Positive tachypnea. CARDIOVASCULAR: S1 and S2 with irregular rate and rhythm. Positive tachycardia. ABDOMEN: Flat, soft, nontender, and nondistended. Bowel sounds are positive in all 4 quadrants. There is no hepatosplenomegaly. No abdominal bruits. No rebound or guarding appreciated. EXTREMITIES: Warm and dry with fair turgor. No clubbing, cyanosis, or asymmetric edema appreciated. Pulses palpable distally at the dorsalis pedis, posterior tibial, and popliteal arteries bilaterally. Capillary refill less than 2 seconds. NEUROLOGIC: Cranial nerves 2 through 12 are grossly intact. No focal or lateralizing signs appreciated. PERTINENT LABORATORY AND X-RAY FINDINGS: Sodium 115, potassium 4.1, chloride 78, CO2 of 27, BUN 4, creatinine 0.57, estimated GFR greater than 90, glucose 99, lactic acid level 0.9, calcium 8.8, magnesium level 1.3. LFTs within normal limits. BNP 367, previously noted 174 on 05/06/2019. Troponin I negative x1. CBC showed a white blood cell count of 6.6, hemoglobin 13, hematocrit 36, MCV 99, platelet count 250 with 85% neutrophilia. ABG dated 06/07/2019 showed a pH 7.44, pCO2 of 42, pO2 of 98, bicarb 28 with O2 saturation 98% on 2 L/minute by nasal cannula. Portable chest x-ray dated 06/07/2019 by my interpretation shows hyperinflation of bilateral lung hollingsworth. No acute infiltrate identified. EKG dated 06/07/2019 by my interpretation shows atrial fibrillation with rapid ventricular response, heart rates in the 130s. Attenuated R-waves noted in the precordial leads. Normal axis. Baseline artifact noted. ASSESSMENT AND PLAN: 1. Atrial fibrillation with rapid ventricular response. We will continue rate control strategy with diltiazem 10 mg/hour. Check 2D transthoracic echocardiogram. Consult Cardiology Service in the a.m. Assess for appropriateness of oral anticoagulation given the patient's history of head and neck carcinoma. Resume home metoprolol 25 mg daily. 2. Acute chronic obstructive pulmonary disease exacerbation. We will continue general pulmonary supportive management. Solu-Medrol 40 mg IV q.6 hours. Dulera 2 puffs inhaled b.i.d. Rocephin 2 g IV q.24 hours. Albuterol metered-dose inhaler 1 to 2 puffs q.4 hours. Continue oxygen supplementation to maintain O2 saturations greater than or equal to 88%. 3. Acute on chronic hypoxic respiratory failure. See #2 above. 4. Hyponatremia. Review of electronic medical record shows chronic hyponatremia with current value showing severe hyponatremia. We will continue low volume intravenous normal saline. Fluid restrict to 800 mL per 24 hours. Serial sodium monitoring q.4 hours. 5. Prophylaxis: SCDs while in bed. Pepcid 20 mg p.o. b.i.d. 6. Code status is full. Surrogate medical decision maker is the patient's spouse. Job ID: [id number]
[2019-06-07] MEDS: cefTRIAXone\\ROCEPHIN 2 GM in Sodium Chloride 0.9% 100 ML IVPB SCH (15:17)
[2019-06-07 15:35] LABS: Troponin I Less than 0.010 ng/mL (< 0.028)
--- NOTE | 2019-06-07 16:05 | RAD ---
FRONTAL RADIOGRAPH CHEST: Date: 06/07/2019 COMPARISON: 05/12/2019. HISTORY: COPD with shortness of breath. FINDINGS: Increased linear interstitial density with pulmonary hyperinflation noted, consistent with air trappi ng. No pneumothorax, pleural fluid, focal consolidation, or alveolar edema. IMPRESSION: Interstitial prominence and pulmonary hyperinflation consistent with the provided history of COPD. No significant interval change. POS: [facility]
[2019-06-07] MEDS: methylPREDNISolone Sod Succ 40 MG VIAL IVP SCH ×2 (16:23→23:04)
--- NOTE | 2019-06-07 17:03 | CON ---
DATE OF CONSULTATION: 06/07/2019 HISTORY OF PRESENT ILLNESS: Mr. Barreto is a 63-year-old. He was recently hospitalized, intubated, and transferred from [place]. He presented with hoarseness and shortness of breath. He is intubated with a 5.[address] Gloria evaluated his upper airway because of his history of throat cancer and found nothing, that was obstructive. He was easily able to talk around his endotracheal tube. We subsequently extubated him. He was hospitalized for a few days for COPD and sent home. Unfortunately continues to smoke. He is back with complaints of shortness of breath. PAST MEDICAL HISTORY: Remarkable for: 1. COPD. 2. Throat cancer. 3. Atrial fibrillation. 4. Hypertension. MEDICATIONS: 1. He has an inhaler. 2. Aspirin. 3. Symbicort. 4. Metoprolol at home. He is only on 25 of metoprolol. ALLERGIES: HE HAS NO DRUG ALLERGIES. FAMILY HISTORY: Negative for lung disease in early age. REVIEW OF SYSTEMS: Otherwise negative. SOCIAL HISTORY: Unfortunately continues to smoke. PHYSICAL EXAMINATION: GENERAL: Unfortunately continues to smoke. VITAL SIGNS: Heart rate is in the 80s, blood pressure 143/77, respiratory rate is in the 20s, and oximetry is 100%. HEAD AND NECK: Unchanged. He is very hoarse as before. LUNGS: He has distant breath sounds and expiratory wheezes. HEART: Regular rhythm. ABDOMEN: Soft. No masses or tenderness. EXTREMITIES: Without any asymmetry. LABORATORY DATA: White count 6.6, hemoglobin 12.6, and platelets 250. Sodium 115, potassium 4.1, chloride 78, bicarb 27, BUN 4, and creatinine 0.57. IMPRESSION: 1. Chronic obstructive pulmonary disease exacerbation. 2. 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 3. Ongoing tobacco. 4. Head and neck cancer. 5. Status post removal of a neck cyst that was healing by secondary intention last visit. PLAN: I agree with current management plans. COVID screen was sent, but I suspect this will be negative. This is a 50 minute consult, with greater than 50% of time spent on unit coordinating care. Job ID: [id number] MTDD
[2019-06-07 17:08] LABS: Anion Gap 13 mmol/L (10-20); BUN (Urea Nitrogen) 5 mg/dL (8.4-25.7); Calc. Creatinine Clearance 112 mL/min (70-130); Calcium 8.7 mg/dL (7.8-10.44); Carbon Dioxide 29 mmol/L (23-31); Chloride 79 mmol/L (98-107); Estimated GFR-MDRD Greater than 90; Glucose 116 mg/dL (80-115); Potassium 4.1 mmol/L (3.5-5.1)
[2019-06-07 17:12] LABS: Sodium 117 mmol/L (136-145)
--- NOTE | 2019-06-07 18:22 | CON ---
DATE OF CONSULTATION: REASON FOR CONSULTATION: Hyponatremia. HISTORY OF PRESENT ILLNESS: This is a very pleasant 63-year-old gentleman with a history of hyponatremia, head and neck cancer, who is being consulted for hyponatremia, sodium of 115. The patient has had increased fluid intake. The patient also has malignancy and is being tested for COVID. The patient also has atrial fibrillation with rapid RVR. The patient denies any nausea, vomiting, or chest pain. PAST MEDICAL HISTORY: Significant for hypoxic respiratory failure; COPD; head and neck cancer, chemotherapy; hypertension; tobacco abuse; cyst surgery. SOCIOECONOMIC HISTORY: No alcohol or drug use. FAMILY HISTORY: Negative for ESRD. ALLERGIES: REVIEWED. MEDICATIONS: Home medication list reviewed. Hospital medication list reviewed. REVIEW OF SYSTEMS: A 15-point review of system was performed, negative except what was noted above. HEENT: Eyes intact, no diplopia. Ears: No hearing loss or earache. Nose: No discharge or bleeding. CHEST: No cough or phlegm. ABDOMEN: No nausea or vomiting. GENITOURINARY: No hematuria. No De La Paz catheter. MUSCULOSKELETAL: No low back pain. No joint swelling or pain. NEUROLOGICAL: No syncope. No seizures. SKIN: No complaints of rash or itching. PSYCHIATRIC: No depression. CONSTITUTIONAL: No weight loss or loss of appetite. PHYSICAL EXAMINATION: GENERAL: The patient is awake and alert. VITAL SIGNS: Afebrile, pulse 100, breathing at 16, blood pressure 139/75. HEENT: Head normocephalic and atraumatic. Eyes intact, no ulcers. Nose intact, no ulcers. Ears intact, no ulcers. NECK: Supple. No JVD. CHEST: Symmetrical and clear. CARDIOVASCULAR: Shows S1 and S2, no rub, no murmur. GASTROINTESTINAL: Abdomen is soft, bowel sounds positive. EXTREMITIES: Show no edema or ulcers. SKIN: Shows no rash or petechiae. MUSCULOSKELETAL: Shows no joint swelling or stiffness. GENITOURINARY: Shows no De La Paz or CVA tenderness. NEUROLOGIC: Motor intact. Cranial nerves intact. LABORATORY DATA: Sodium 115. Serum osmolality is pending. ASSESSMENT AND PLAN: 1. Hypertension, stable. 2. Anemia, stable. 3. Medication based on GFR appropriate. I would recommend 800 mL fluid restriction and checking sodium every 4 to 6 hour also magnesium. No indication for hypertonic saline. Job ID: [id number]
[2019-06-07] MEDS: Mometasone 200 MCG/Formoterol 5 MCG 120 PUFF INHALER INH SCH (19:29)
[2019-06-07] MEDS: Albuterol 200 PUFF (6.7GM INHALER) INH SCH ×2 (19:30→21:33)
[2019-06-07] MEDS: Famotidine 20 MG TAB PO SCH (21:28)
[2019-06-07 21:39] LABS: Anion Gap 13 mmol/L (10-20); BUN (Urea Nitrogen) 7 mg/dL (8.4-25.7); Calc. Creatinine Clearance 105 mL/min (70-130); Calcium 8.8 mg/dL (7.8-10.44); Carbon Dioxide 29 mmol/L (23-31); Chloride 80 mmol/L (98-107); Estimated GFR-MDRD Greater than 90; Glucose 161 mg/dL (80-115); Potassium 3.9 mmol/L (3.5-5.1)
[2019-06-07 21:46] LABS: Sodium 118 mmol/L (136-145)
[2019-06-08 01:47] LABS: Anion Gap 13 mmol/L (10-20); BUN (Urea Nitrogen) 6 mg/dL (8.4-25.7); Calc. Creatinine Clearance 116 mL/min (70-130); Carbon Dioxide 28 mmol/L (23-31); Chloride 82 mmol/L (98-107); Estimated GFR-MDRD Greater than 90; Glucose 133 mg/dL (80-115)
[2019-06-08 01:55] LABS: Sodium 119 mmol/L (136-145)
[2019-06-08] MEDS: Albuterol 200 PUFF (6.7GM INHALER) INH SCH ×4 (02:47→14:30)
[2019-06-08 06:00] LABS: Hemoglobin 12.1 g/dL (14.0-18.0); Mean Corpuscular HGB CONC 35.5 g/dL (32.0-36.0); Mean Corpuscular Hemoglobin 35.2 pg (27.0-31.0); Mean Corpuscular Volume 99.3 fL (78.0-98.0); Mean Platelet Volume 5.8 fL (7.4-10.4); Platelet Count 223 thou/uL (130-400); RBC Distribution Width 12.5 % (11.5-14.5); Red Blood Cell (RBC) Count 3.43 mill/uL (4.70-6.10); White Blood Cell (WBC) Count 5.6 thou/uL (4.8-10.8)
[2019-06-08 06:11] LABS: Band 12 % (5-11); Lymphocytes 3 % (21-51); MDiff Complete? YES; Monocytes 4 % (0-10); Neutrophil 81 % (42-75)
[2019-06-08] MEDS: Mometasone 200 MCG/Formoterol 5 MCG 120 PUFF INHALER INH SCH (06:18)
[2019-06-08] MEDS: methylPREDNISolone Sod Succ 40 MG VIAL IVP SCH (06:20)
[2019-06-08 06:44] VITALS: TEMP 97.3
[2019-06-08 08:38] LABS: Anion Gap 14 mmol/L (10-20); BUN (Urea Nitrogen) 7 mg/dL (8.4-25.7); Calc. Creatinine Clearance 131 mL/min (70-130); Calcium 8.9 mg/dL (7.8-10.44); Carbon Dioxide 27 mmol/L (23-31); Chloride 83 mmol/L (98-107); Estimated GFR-MDRD Greater than 90; Glucose 124 mg/dL (80-115); Magnesium 1.6 mg/dL (1.6-2.6); Potassium 4.1 mmol/L (3.5-5.1); Sodium 120 mmol/L (136-145)
[2019-06-08] MEDS ORDERED: Aspirin 325 MG TAB PO SCH (09:00)
[2019-06-08] MEDS: Famotidine 20 MG TAB PO SCH (09:01)
[2019-06-08] MEDS ORDERED: Tolvaptan 15 MG TAB PO SCH (11:15)
--- NOTE | 2019-06-08 12:21 | PRG ---
DATE OF SERVICE: 06/08/2019 Janes Barreto is telling the nurses he wants to go home. He is not wheezing. His vital signs have been stable. His BP is 135/74, heart rate is 83, respiratory rate is in the teens. This is consistent with behavior on last admission. As soon as he was extubated, he was talking about going home. He told the nurses he needs to get home so he can drink some beer. His COVID serology is still pending. Appears medically stable. Only issue at hand is his hyponatremia. He is not hypothyroid. I suspect this may be beer drinkers potomania associated with inadequate routine intake on a daily basis. Really needs to be fluid restricted. Prognosis is poor just because of his lifestyle noncompliance with smoking cessation and daily heavy alcohol use. His COVID serology is pending. Job ID: [id number]
[2019-06-08 12:30] VITALS: BMI 17.0
--- NOTE | 2019-06-08 12:37 | PRG ---
DATE OF SERVICE: 06/08/2019 SUBJECTIVE: The patient is on isolation. OBJECTIVE: VITAL SIGNS: Reviewed. Temperature 97.3, pulse 83, respiratory rate 18, blood pressure 134/74. LABORATORY DATA: Sodium is 120, potassium 4.1, creatinine is 0.5. ASSESSMENT AND PLAN: 1. Hyponatremia, most likely from syndrome of inappropriate antidiuretic hormone secretion. We will give a dose of tolvaptan. 2. Syndrome of inappropriate antidiuretic hormone secretion, a dose of tolvaptan. Continue fluid restriction. 3. Anemia. 4. History of hypertension. 5. Limit fluid intake. We will give a dose of tolvaptan. Job ID: [id number]
[2019-06-08] MEDS: cefTRIAXone\\ROCEPHIN 2 GM in Sodium Chloride 0.9% 100 ML IVPB SCH (14:30)
--- NOTE | 2019-06-08 15:39 | PDOC.HOSPP ---
- Subjective Encounter Date: 06/08/19 Encounter Time: 15:35 Subjective: f/u for A-fib RVR, hyponatremia and COVID r/o. - Objective Vital Signs & Weight: Vital Signs (12 hours) Temp Pulse Resp Pulse Ox 06/08/19 07:18 99 06/08/19 06:18 71 15 98 06/08/19 04:00 97.3 F L Weight Admit Weight 128 lb 6.4 oz Weight 136 lb 5.984 oz Most Recent Monitor Data Heart Rate from ECG 93 NIBP 127/84 NIBP BP-Mean 98 Respiration from ECG 17 SpO2 98 I&O: 06/07/19 06/08/19 06/09/19 06:59 06:59 06:59 Intake Total 627 Output Total 1650 Balance -1023 Result Diagrams: 06/08/19 05:26 06/08/19 07:47 Additional Labs: Microbiology 06/07/19 10:32 Nasopharyngeal swab Influenza Types A,B Direct EIA - Final 06/07/19 09:25 Venous blood - Right Arm Blood Culture - Preliminary Specimen has been received and culture in progress. No Growth to date. 06/07/19 09:25 Venous blood - Left Arm Blood Culture - Preliminary Specimen has been received and culture in progress. No Growth to date. Laboratory Tests 05/06/19 06/07/19 06/07/19 02:45 09:15 09:15 Sodium 115 L* B-Natriuretic Peptide 174.0 H 367.1 H TSH 3rd Generation Urine Osmolality 06/07/19 06/07/19 06/07/19 14:00 16:32 21:14 Sodium 117 L* 118 L* B-Natriuretic Peptide TSH 3rd Generation Urine Osmolality 309 06/08/19 06/08/19 01:12 05:26 Sodium 119 L* B-Natriuretic Peptide TSH 3rd Generation 0.8913 Urine Osmolality EKG Reviewed by me: Yes (Tele - ) Hospitalist ROS - Medication Medications: Active Medications Generic Name Dose Route Start Last Admin Trade Name Freq PRN Reason Stop Dose Admin Albuterol Sulfate 2 puff 06/07/19 18:30 06/08/19 14:30 Proventil Hfa INH 2 puff [id number] CARLOS MANUEL Administration Aspirin 325 mg 06/08/19 09:00 06/08/19 09:00 Aspirin PO 325 mg DAILY CARLOS MANUEL Administration Famotidine 20 mg 06/07/19 21:00 06/08/19 09:01 Pepcid PO 20 mg BID CARLOS MANUEL Administration Ceftriaxone Sodium 2 gm/ 100 mls @ 200 mls/hr 06/07/19 14:00 06/08/19 14:30 Sodium Chloride IVPB 100 mls Q24HR CARLOS MNAUEL Administration Diltiazem HCl 125 mg/ Sodium 125 mls @ 10 mls/hr 06/07/19 13:32 06/07/19 21: 28 Chloride IVPB 125 mls INF CARLOS MANUEL Administration Protocol 10 MG/HR Metoprolol Succinate 25 mg 06/08/19 09:00 06/08/19 09:00 Toprol Xl PO 25 mg DAILY CARLOS MANUEL Administration Mometasone Furoate/Formoterol Fumar 2 puff 06/07/19 18:30 06/08/19 06:18 Dulera 200 Mcg/5 Mcg Inhaler INH 2 puff BID-RT CARLOS MANUEL Administration
--- NOTE | 2019-06-09 00:14 | DIS ---
DATE OF ADMISSION: 06/07/2019 DATE OF DISCHARGE: 06/08/2019 DISCHARGE DIAGNOSES: 1. Atrial fibrillation with rapid ventricular response, variable rate control. 2. Acute chronic obstructive pulmonary disease exacerbation. 3. Acute on chronic hypoxic respiratory failure. 4. Hyponatremia secondary to syndrome of inappropriate antidiuretic hormone secretion. 5. Tobacco abuse ongoing. 6. Head and neck carcinoma, status post chemotherapy and radiation. CONSULTATIONS: 1. Dr. Cosby with Pulmonology Service. 2. Dr. Boyer with Nephrology Service. PERTINENT LABORATORY AND X-RAY FINDINGS: Sodium ranged between 115 to 120. Lactic acid level 0.9. BNP 367. TSH 0.89. CBC showed a white blood cell count ranged between 12.1 to 12.6. Urine osmolality 309. Blood cultures x2 dated 06/07/2019, showed no growth to date. Influenza A and B antigen dated 06/07/2019, negative. COVID-19 PCR pending. Portable chest x-ray dated 06/07/2019, showed hyperinflation consistent with COPD. HOSPITAL COURSE: The patient was admitted after initially presenting with increased shortness of breath in the context of COPD with an acute exacerbation. The patient was also noted with atrial fibrillation with rapid ventricular response and placed on a Cardizem infusion. The patient was continued on rate control measures with diltiazem infusion and given pulmonary supportive management with IV Solu-Medrol, bronchodilator therapy with DuoNeb, and Rocephin. The patient was also placed in respiratory isolation due to concern for COVID-19 rule out. The patient was noted with improving sodium levels with fluid restriction and treatment with tolvaptan. The patient decided that he did not want to stay in the hospital any longer due to the isolation and needing to return home to drink beer. The patient decided to leave against medical advice on 06/08/2019. Job ID: [id number]
[2019-06-09] MEDS ORDERED: predniSONE 20 MG TAB PO SCH (08:00)
== END 2019-06-08 16:41 | disposition left against medical advice (07) | DRG 308 ==
LOC: ERS 09:04 → IMCU/EMU 10:34
PROVIDERS: ADMIT Family Medicine; ATTEND Family Medicine
PROC: 8E0ZXY6 Isolation (ICD-10-PCS; principal; 2019-06-07)
DX: I48.91 Unspecified atrial fibrillation (principal); J96.21 Acute and chronic respiratory failure with hypoxia; J44.1 Chronic obstructive pulmonary disease with (acute) exacerbation; E22.2 Syndrome of inappropriate secretion of antidiuretic hormone; C79.89 Secondary malignant neoplasm of other specified sites; D64.9 Anemia, unspecified; I10 Essential (primary) hypertension; Z20.828 Contact with and (suspected) exposure to other viral communicable diseases; Z92.21 Personal history of antineoplastic chemotherapy; Z92.3 Personal history of irradiation
CPT/HCPCS: 36415; 71045; 80048; 80053; 82805; 83605; 83735; 83880; 83930; 83935; 84443; 84484; 85007; 85025; 85027; 87040; 87635; 87804; 93005; 94640; 94760; J0696; J2920; J2930; J3475; J3490; J7620; U0002

== ENCOUNTER 2019-06-16 05:15 | Inpatient (IN) | payer MEDICAID, OTHER ==
[2019-06-16] MEDS ORDERED: Diltiazem HCl 125 MG, Admixture Fee 1 EACH in Sodium Chloride 0.9% 100 ML IVPB SCH (05:45)
[2019-06-16 05:46] LABS: #Basophils 0.1 thou/uL (0.0-0.2); #Lymphocytes 0.3 thou/uL (1.20-3.40); #Monocytes 0.6 thou/uL (0.11-0.59); #Neutrophils 8.5 thou/uL (1.40-6.50); %Basophils 0.8 % (0.0-1.0); %Eosinophils 0.2 % (0.0-10.0); %Lymphocytes 3.3 % (21.0-51.0); %Monocytes 5.9 % (0.0-10.0); %Neutrophils 89.8 % (42.0-75.0); Hemoglobin 12.4 g/dL (14.0-18.0); Mean Corpuscular Hemoglobin 34.6 pg (27.0-31.0); Mean Corpuscular Volume 98.7 fL (78.0-98.0); Mean Platelet Volume 5.9 fL (7.4-10.4); Platelet Count 256 thou/uL (130-400); RBC Distribution Width 12.5 % (11.5-14.5); White Blood Cell (WBC) Count 9.5 thou/uL (4.8-10.8)
[2019-06-16 06:08] LABS: ALT (SGPT) 16 U/L (8-55); AST (SGOT) 12 U/L (5-34); Albumin 3.8 g/dL (3.4-4.8); Alkaline Phosphatase 89 U/L (40-110); Anion Gap 14 mmol/L (10-20); BUN (Urea Nitrogen) 6 mg/dL (8.4-25.7); Bilirubin, Total 1.2 mg/dL (0.2-1.2); Calc. Creatinine Clearance 0 mL/min (70-130); Calcium 8.7 mg/dL (7.8-10.44); Carbon Dioxide 24 mmol/L (23-31); Chloride 76 mmol/L (98-107); Estimated GFR-MDRD Greater than 90; Globulin 2.3 g/dL (2.4-3.5); Glucose 87 mg/dL (80-115); Potassium 3.8 mmol/L (3.5-5.1); Protein, Total 6.1 g/dL (5.8-8.1)
[2019-06-16 06:11] LABS: Sodium 110 mmol/L (136-145)
[2019-06-16 07:45] VITALS: BMI 16.0
--- NOTE | 2019-06-16 07:48 | RAD ---
Exam: Chest one view HISTORY:Respiratory distress Comparison: 06/07/2019 FINDINGS: Cardiac silhouette: Normal Aorta: Unremarkable Pulmonary vessels: Normal Costophrenic angles: Clear LUNGS: No masses or consolidation. Chronic lung parenchymal changes. Stable hyperinflation. Pneumothorax: No obvious pneumothorax. Limited evaluation the lung apices. Osseous abnormalities: None IMPRESSION: 1. Hyperinflation. COPD. 2. Chronic lung parenchymal changes.
[2019-06-16] MEDS ORDERED: Acetaminophen 325 MG TAB PO PRN (08:41)
[2019-06-16] MEDS ORDERED: PROVENTIL INHALER 6.7 G (200 INHALATIONS) INH PRN (08:45)
[2019-06-16] MEDS ORDERED: Prevnar 13-Val Conj/PF 0.5 ML SYRINGE IM ONE (08:45)
[2019-06-16 08:52] LABS: Troponin I Less than 0.010 ng/mL (< 0.028)
[2019-06-16] MEDS: Metoprolol Tartrate 25 MG TAB PO SCH ×2 (10:00→20:11)
[2019-06-16] MEDS: guaiFENesin ER 600 MG TAB PO SCH ×2 (10:00→20:12)
[2019-06-16] MEDS: Aspirin 325 MG TAB PO SCH (10:00)
--- NOTE | 2019-06-16 10:42 | HP ---
CHIEF COMPLAINT: Shortness of breath. 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 He was most recently admitted here on 06/06 with shortness of breath, was noted to be in atrial fibrillation with RVR and had hyponatremia and he left against medical advice because he did not want to be on isolation for COVID rule out and he needed to drink beer. The patient stated that he felt fine when he went home and felt fine until last night when he started having problems. His primary problem is that he feels like he cannot breathe once he needs to start clearing his throat and he has developed a little bit of phlegm that is requiring him to do so from time to time, that is why he presented to the emergency department. He denies any fevers, chills, or other cough. He does continue to drink 12 pack of beer per day. Continuing to smoke, although he says he is down to one pack per week rather than a pack per day. He reports he is only eating about 50% of what he previously ate prior to his cancer diagnosis. He currently says that if he could do something to resolve his lung issues, then he would be essentially feeling at his baseline. REVIEW OF SYSTEMS: As noted above. The patient has decreased p.o. intake, significantly related to his challenges with swallowing. He states he can no longer eat steak and such, but otherwise is not on a restricted diet. He has had normal bowel and bladder habits. All other systems reviewed. All pertinent positives and negatives noted in history of present illness were otherwise negative. PAST MEDICAL HISTORY: 1. COPD. 2. Ongoing tobacco abuse. 3. History of atrial fibrillation. 4. History of hypertension. 5. 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 6. 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 PAST SURGICAL HISTORY: Removal of a cyst of the right neck. FAMILY HISTORY: Notable for hypertension. SOCIAL HISTORY: The patient is retired. Continues to smoke a pack of cigarettes per week per his report. Continues to drink 12 pack of beer per day. He is . He is full code. His would be his surrogate decision maker. CURRENT MEDICATIONS: 1. Albuterol HFA one inhalation p.r.n. 2. Symbicort 160/4.5 two puffs b.i.d. 3. Metoprolol XL 25 mg daily. 4. Aspirin 325 mg daily. PHYSICAL EXAMINATION: GENERAL APPEARANCE: Age-appropriate male. He is very hoarse. His voice is raspy. Breath sounds audible without stethoscope. He is relatively thin. He is in no distress generally, able to speak appropriately. HEENT: PERRL. No OP lesions. NECK: Supple and symmetric without lymphadenopathy or JVD or bruits. HEART: Irregularly irregular with intermittent tachycardia. No murmurs, gallops, or rubs. LUNGS: Have scattered rales bilaterally with diminished breath sounds. ABDOMEN: Soft, nontender, and nondistended. Positive bowel sounds. No masses. No organomegaly. EXTREMITIES: No cyanosis, clubbing, or edema. PSYCH: Normal affect and behavior. NEURO: Moves all extremities appropriately. Cranial nerves are intact. Peripheral nerves are intact. There is no evidence of focal deficits. SKIN: Exam reveals an abrasion to the right forehead (the patient reports fall related to his drinking). LABORATORY DATA: White count 9.5, hemoglobin 12.4, platelets 256. Sodium 110, potassium 3.8, chloride 76, CO2 of 24, BUN 6, creatinine 0.58, glucose 87, calcium 8.7. LFTs normal. Troponin less than 0.01. BNP 175, albumin 3.8, TSH 2.1. Chest x-ray, hyperinflation consistent with COPD and chronic lung parenchymal changes. EKG shows atrial fibrillation with RVR at 124 beats per minutes. IMPRESSION AND PLAN: 1. Atrial fibrillation with RVR. The patient has a history of atrial fibrillation, likely has been in atrial fibrillation since his previous discharge and we suspect he remains relatively tachycardic. He is on metoprolol. Given his dose of p.o. metoprolol, we changed it to tartrate to see how he responds to that today and may need to up his dose on that. He has not been on anticoagulation for atrial fibrillation because of his continued drinking and risk of falls. He has the abrasion on his forehead, which confirms the fear that the patient is drinking too much and falling down and hurting himself and therefore anticoagulation will continue to be withheld. We will consult Cardiology. He identifies Dr. Rojas is his primary email marketing specialist. 2. Dyspnea. The patient has dyspnea, primarily related to some accumulation of sputum. We will give him some mucolytics. 3. Chronic obstructive pulmonary disease, chronic; given some low-dose steroids, inhalers, and nebulizers. 4. Severe hyponatremia. The patient has chronic hyponatremia and his last level was 120 on the . He is now 110. This is likely a combination of some syndrome of inappropriate antidiuretic hormone secretion, but substantially exacerbated by beer potomania. I counseled the patient regarding the need to stop drinking and need more protein. We will fluid restrict him to 1000 mL per day. Consult Nephrology to see if he would benefit from tolvaptan. He generally appears to be asymptomatic and likely highly tolerant of this because of his chronic hyponatremia, being asymptomatic, and being more chronic in nature, we will not give hypertonic saline. 5. Alcohol abuse. Counseled the patient regarding the fact that he is essentially committing slow suicide with the alcohol and tobacco. He has been relatively noncompliant and left the hospital AMA at his last visit and continues to practice self abuse and made it clear to him that the alcohol and tobacco are going to substantially increase his risk of having recurrent cancers. 6. Mild dysphagia. He does not actually have any evidence of aspiration and he continues to be on an unrestricted diet avoiding tougher meats. We will continue with a regular diet in light of that, if he needs to have some better protein intake. 7. History of supraglottic cancer, apparently in stable place at this point. Job ID: [id number]
[2019-06-16 12:00] LABS: Troponin I Less than 0.010 ng/mL (< 0.028)
[2019-06-16] MEDS: methylPREDNISolone Sod Succ 40 MG VIAL IVP SCH ×2 (13:04→17:36)
--- NOTE | 2019-06-16 13:54 | CON ---
DATE OF CONSULTATION: 06/16/2019 REASON FOR CONSULTATION: Atrial fibrillation with RVR. HISTORY OF PRESENT ILLNESS: Mr. Barreto is a 63-year-old gentleman, whom I have seen and evaluated in the past. There was concern for noncompliance with Mr. Barreto. He has had a history of chronic atrial fibrillation. Despite elevated CHADS score, he has refused anticoagulation therapy. He is to start on a full-dose aspirin only. He also has a strong tobacco history, although states he has cut back. He re-presented with increased shortness of breath. It appears more consistent with COPD exacerbation. Based on his COPD exacerbation, his heart rate increased. He was placed on IV Cardizem. He now appears to be rate controlled off IV Cardizem. He states he is breathing much better. PAST MEDICAL HISTORY: Hypertension, atrial fibrillation, COPD, squamous cell cancer. HOME MEDICATIONS: Include; 1. Symbicort. 2. Proventil. 3. Aspirin. 4. Toprol. 5. Cardizem. SURGICAL HISTORY: Neck surgery. REVIEW OF SYSTEMS: A 10-point review of systems is reviewed and is as above, otherwise negative. PHYSICAL EXAMINATION: GENERAL: The patient does appear much older than stated age and cachectic. VITAL SIGNS: Blood pressure 140/76, pulse 70, temperature afebrile. NEUROLOGIC: The patient is alert and oriented x3 with no focal neurologic deficits. HEENT: Sclerae without icterus. Mouth has moist mucous membranes with normal pallor. NECK: No JVD. Carotid upstroke brisk. No bruits bilaterally. LUNGS: Clear to auscultation with unlabored respirations. BACK: No scoliosis or kyphosis. CARDIAC: Irregularly irregular. ABDOMEN: Soft, nontender, nondistended. No peritoneal signs present. No hepatosplenomegaly. No abnormal striae. EXTREMITIES: 2+ femoral and 2+ dorsalis pedis pulses. No cyanosis, clubbing, or edema. SKIN: No gross abnormalities. PERTINENT LABORATORY DATA: Hemoglobin 12.4, hematocrit 35.5. Sodium 110, chloride 76, creatinine 0.58. IMPRESSION: 1. Atrial fibrillation with RVR. 2. Chronic obstructive pulmonary disease exacerbation. 3. Hyponatremia. 4. Continued tobacco abuse. RECOMMENDATIONS: Continue full-dose aspirin at 325 mg one p.o. q.a.m. He has been placed back on his metoprolol 25 b.i.d. with appropriate rate control. I again discussed anticoagulation therapy with Mr. Barreto. He states he is not interested and understands the risks. Last echo dated 03/13/2019 with LVEF 50% to 55%. Recommendations on hyponatremia and COPD exacerbation per primary team. Job ID: [id number]
[2019-06-16 14:15] LABS: Anion Gap 13 mmol/L (10-20); BUN (Urea Nitrogen) 6 mg/dL (8.4-25.7); Calc. Creatinine Clearance 114 mL/min (70-130); Calcium 8.9 mg/dL (7.8-10.44); Carbon Dioxide 28 mmol/L (23-31); Chloride 75 mmol/L (98-107); Estimated GFR-MDRD Greater than 90; Glucose 95 mg/dL (80-115); Magnesium 1.3 mg/dL (1.6-2.6); Phosphorus 2.7 mg/dL (2.3-4.7)
[2019-06-16 14:21] LABS: Sodium 112 mmol/L (136-145)
[2019-06-16 18:36] LABS: Anion Gap 12 mmol/L (10-20); BUN (Urea Nitrogen) 6 mg/dL (8.4-25.7); Calc. Creatinine Clearance 114 mL/min (70-130); Carbon Dioxide 30 mmol/L (23-31); Chloride 76 mmol/L (98-107); Estimated GFR-MDRD Greater than 90; Glucose 99 mg/dL (80-115); Potassium 3.9 mmol/L (3.5-5.1)
[2019-06-16 18:39] LABS: Sodium 114 mmol/L (136-145)
--- NOTE | 2019-06-16 18:58 | CON ---
DATE OF CONSULTATION: 06/16/2019 REASON FOR CONSULTATION: Hyponatremia. TIME OF CONSULTATION: 01:30 p.m. on June 16, 2019. The call was placed by the nurse. HISTORY OF PRESENT ILLNESS: This is a very pleasant 63-year-old gentleman, who presented to the hospital and was admitted to [facility] for a sodium of 110. No repeat sodium has been done since 8 o'clock this morning, and I was consulted as noted earlier. The patient was admitted for shortness of breath. The patient was recently ruled out for COVID. The patient does drink significant amounts of alcohol. He has very poor p.o. intake. PAST MEDICAL HISTORY: Significant for COPD; hypertension; tobacco abuse; atrial fibrillation; supraglottic cancer, chemotherapy and radiation; chronic hyponatremia; and history of cyst in the neck. FAMILY HISTORY: Negative for ESRD. ALLERGIES: REVIEWED. MEDICATIONS: Home medications list, reviewed. Hospital medications list, reviewed. REVIEW OF SYSTEMS: Negative. PHYSICAL EXAMINATION: GENERAL: The patient is awake and alert. VITAL SIGNS: Afebrile, pulse 75, breathing at 16, blood pressure was 140/76. HEENT: Head normocephalic and atraumatic. Eyes intact, no ulcers. Nose intact, no ulcers. Ears intact, no ulcers. NECK: Supple. No JVD. CHEST: Symmetrical and clear. CARDIOVASCULAR: Shows S1 and S2, no rub, no murmur. GASTROINTESTINAL: Abdomen is soft, bowel sounds positive. EXTREMITIES: Show no edema or ulcers. SKIN: Shows no rash or petechiae. MUSCULOSKELETAL: Shows no joint swelling or stiffness. GENITOURINARY: Shows no De La Paz or CVA tenderness. NEUROLOGIC: Motor intact. Cranial nerves intact. LABORATORY DATA: Show sodium 110. TSH was within normal limits. Albumin was 3.8. No serum osmolality or urine osmolality is available. ASSESSMENT AND RECOMMENDATIONS: Syndrome of inappropriate antidiuretic hormone secretion, most likely because of head, neck, and throat cancer and beer potomania. We would recommend 800 mL fluid restriction. Check sodium every 4 hours. Prognosis is poor. Noncompliance is a major issue. Job ID: [id number]
[2019-06-16] MEDS: Mometasone 200 MCG/Formoterol 5 MCG 120 PUFF INHALER INH SCH (19:00)
[2019-06-16 22:53] LABS: Sodium 114 mmol/L (136-145)
[2019-06-17] MEDS: methylPREDNISolone Sod Succ 40 MG VIAL IVP SCH ×4 (00:13→17:34)
[2019-06-17 03:51] LABS: #Lymphocytes 0.5 thou/uL (1.20-3.40); #Monocytes 0.3 thou/uL (0.11-0.59); #Neutrophils 7.7 thou/uL (1.40-6.50); %Eosinophils 0.2 % (0.0-10.0); %Monocytes 3.2 % (0.0-10.0); %Neutrophils 90.6 % (42.0-75.0); Hemoglobin 12.7 g/dL (14.0-18.0); Mean Corpuscular HGB CONC 33.3 g/dL (32.0-36.0); Mean Corpuscular Hemoglobin 34.1 pg (27.0-31.0); Mean Platelet Volume 6.4 fL (7.4-10.4); Platelet Count 251 thou/uL (130-400); RBC Distribution Width 12.6 % (11.5-14.5); Red Blood Cell (RBC) Count 3.72 mill/uL (4.70-6.10); White Blood Cell (WBC) Count 8.5 thou/uL (4.8-10.8)
[2019-06-17 06:19] LABS: Anion Gap 15 mmol/L (10-20); BUN (Urea Nitrogen) 8 mg/dL (8.4-25.7); Calc. Creatinine Clearance 116 mL/min (70-130); Calcium 9.1 mg/dL (7.8-10.44); Carbon Dioxide 25 mmol/L (23-31); Chloride 79 mmol/L (98-107); Estimated GFR-MDRD Greater than 90; Glucose 108 mg/dL (80-115); Potassium 4.2 mmol/L (3.5-5.1)
[2019-06-17 06:25] LABS: Sodium 115 mmol/L (136-145)
[2019-06-17] MEDS: Mometasone 200 MCG/Formoterol 5 MCG 120 PUFF INHALER INH SCH (07:44)
[2019-06-17] MEDS: Aspirin 325 MG TAB PO SCH (10:09)
[2019-06-17] MEDS: Thiamine 100 MG TAB PO SCH (10:09)
[2019-06-17] MEDS: Folic Acid 1 MG TAB PO SCH (10:09)
[2019-06-17] MEDS: guaiFENesin ER 600 MG TAB PO SCH ×2 (10:09→20:24)
[2019-06-17] MEDS: Metoprolol Tartrate 25 MG TAB PO SCH (10:09)
[2019-06-17 10:29] LABS: Anion Gap 13 mmol/L (10-20); BUN (Urea Nitrogen) 11 mg/dL (8.4-25.7); Calc. Creatinine Clearance 114 mL/min (70-130); Carbon Dioxide 27 mmol/L (23-31); Chloride 79 mmol/L (98-107); Estimated GFR-MDRD Greater than 90; Glucose 122 mg/dL (80-115); Potassium 4.2 mmol/L (3.5-5.1)
[2019-06-17 10:39] LABS: Sodium 115 mmol/L (136-145)
--- NOTE | 2019-06-17 14:07 | CON ---
DATE OF CONSULTATION: 06/17/2019 HISTORY OF PRESENT ILLNESS: Mr. Barreto is currently doing better. His breathing is much better. He did require restarting calcium channel katerine last evening due to increased heart rate, although appears more stable. Beta katerine has not been given this morning. OBJECTIVE: VITAL SIGNS: Blood pressure 94/64, pulse 61, temperature afebrile. LUNGS: Rhonchi, rales bilaterally. HEART: . ABDOMEN: Soft, nontender, and nondistended. EXTREMITIES: No edema. PERTINENT LABORATORY DATA: Hemoglobin 12.7. Creatinine 0.56, sodium 115. IMPRESSION: 1. Chronic atrial fibrillation. 2. Chronic obstructive pulmonary disease exacerbation. 3. Continued tobacco abuse. 4. Hyponatremia. RECOMMENDATIONS: I would like to see how he responds to beta katerine therapy. May increase the treatment to b.i.d. dosing in hopes that we can titrate off his IV Cardizem. His increased heart rate likely related to worsening COPD yesterday that appears to have improved. Again, counseled him on cessation of all tobacco products. Job ID: [id number]
--- NOTE | 2019-06-17 16:42 | PDOC.HOSPP ---
- Subjective Encounter Date: 06/17/19 Subjective: Doing better. Much more capable of expectorating the sputum. Feels like he is back to his general baseline. Feels like his mentation is normal. - Objective Vital Signs & Weight: Vital Signs (12 hours) Temp Pulse Ox 06/17/19 11:22 98.4 F 06/17/19 08:00 91 L 06/17/19 07:45 92 L 06/17/19 07:02 96.9 F L Weight Admit Weight 128 lb Weight 128 lb 8.472 oz Most Recent Monitor Data Heart Rate from ECG 68 NIBP 136/62 NIBP BP-Mean 86 Respiration from ECG 14 SpO2 97 I&O: 06/16/19 06/17/19 06/18/19 06:59 06:59 06:59 Intake Total 872 Output Total 1500 Balance -628 Result Diagrams: 06/17/19 03:06 06/17/19 10:02 Hospitalist ROS - Medication Medications: Active Medications Generic Name Dose Route Start Last Admin Trade Name Rejiq PRN Reason Stop Dose Admin Aspirin 325 mg 06/16/19 09:00 06/17/19 10:09 Aspirin PO 325 mg DAILY CARLOS MANUEL Administration Folic Acid 1 mg 06/17/19 09:00 06/17/19 10:09 Folvite PO 1 mg DAILY CARLOS MANUEL Administration Guaifenesin 1,200 mg 06/16/19 09:00 06/17/19 10:09 Mucinex PO 1,200 mg Q12HR CARLOS MANUEL Administration Methylprednisolone Sodium Succinate 40 mg 06/16/19 12:00 06/17/19 12:37 Solu-Medrol IVP 40 mg Q6HR CARLOS MANUEL Administration Mometasone Furoate/Formoterol Fumar 1 puff 06/16/19 18:30 06/17/19 07:44 Dulera 200 Mcg/5 Mcg Inhaler INH 1 puff BID-RT CARLOS MANUEL Administration Sodium Chloride 10 ml 06/16/19 09:00 06/17/19 10:10 Flush - Normal Saline IVF Not Given Q12HR [facility] Thiamine HCl 100 mg 06/17/19 09:00 06/17/19 10:09 Thiamine PO 100 mg DAILY CARLOS MANUEL Administration - Exam General Appearance: NAD, awake alert General - other findings: cachectic Neck - other findings: Right neck post-surgical wound dehiscence. Heart: no murmur, no rubs, normal peripheral pulses, irregular Respiratory: rales Respiratory - other findings: Diminished Gastrointestinal: soft, non-tender, non-distended, normal bowel sounds, no palpable masses, no hepatomegaly, no splenomegaly, no bruit Extremities: no cyanosis, no clubbing, no edema Skin: normal turgor Musculoskeletal: normal tone Psychiatric: normal affect, normal behavior, A&O x 3 Hosp A/P (1) Atrial fibrillation with RVR Code(s): I48.91 - UNSPECIFIED ATRIAL FIBRILLATION Status: Acute (2) Cancer of supraglottis Code(s): C32.1 - MALIGNANT NEOPLASM OF SUPRAGLOTTIS Status: Resolved (3) Alcohol abuse Code(s): F10.10 - ALCOHOL ABUSE, UNCOMPLICATED Status: Acute (4) Tobacco abuse Code(s): Z72.0 - TOBACCO USE Status: Acute (5) Severe malnutrition Code(s): E43 - UNSPECIFIED SEVERE PROTEIN-CALORIE MALNUTRITION Status: Acute (6) Dysphagia Code(s): R13.10 - DYSPHAGIA, UNSPECIFIED Status: Acute (7) Hyponatremia Code(s): E87.1 - HYPO-OSMOLALITY AND HYPONATREMIA Status: Acute (8) COPD (chronic obstructive pulmonary disease) Status: Chronic - Plan Afib with RVR: Required dilt gtt overnight. Cards following. Continue oral beta blockers. NOT a candidate for anticoagulation given his falls and alcohol abuse. Hyponatremia: Nephrology following. He has no symptoms and is accustomed to hyponatremia. Beer potomania and SIADH. Slowly improving. Will need to have some consistent protein intake to fully resolve this. Dysphagia: Appreciate NON PROFIT DIRECTOR recs. Diet modifications and safe swallow techniques. Severe Malnutrition: He weighed 185 in 2013, 150's 2018, 130's last month and now 128. Poor intake except for beer. Consult Head Baggage Porter. COPD: Nebs, steroids as needed. Hx of supraglottic cancer: Reports that he is in remission.
--- NOTE | 2019-06-17 20:25 | PRG ---
DATE OF SERVICE: 06/17/2019 SUBJECTIVE: A 63-year-old gentleman, being seen for hyponatremia. The patient denies any nausea, vomiting, or chest pain. OBJECTIVE: GENERAL: The patient is awake and alert. VITAL SIGNS: Afebrile, pulse 94, breathing 16, and blood pressure was 120/70. HEENT: Head normocephalic and atraumatic. Eyes intact, no ulcers. Nose intact, no ulcers. Ears intact, no ulcers. Neck: Supple. No JVD. Chest: Symmetrical and clear. Cardiovascular: Shows S1 and S2, no rub, no murmur. Gastrointestinal: Abdomen is soft, bowel sounds positive. Extremities: Show no edema or ulcers. Skin: Shows no rash or petechiae. Musculoskeletal: Shows no joint swelling or stiffness. Genitourinary: Shows no De La Paz or CVA tenderness. Neurologic: Motor intact. Cranial nerves intact. LABORATORY DATA: Labs show hemoglobin 12.7. Sodium is 115. ASSESSMENT AND RECOMMENDATIONS: 1. Hyponatremia, improved. 2. Hypertension, stable. 3. Anemia, stable. We would recommend 800 mL of fluid restriction. Job ID: [id number]
[2019-06-17] MEDS ORDERED: Metoprolol Tartrate 25 MG TAB PO SCH (21:00)
[2019-06-17 21:57] LABS: Anion Gap 14 mmol/L (10-20); BUN (Urea Nitrogen) 13 mg/dL (8.4-25.7); Calc. Creatinine Clearance 107 mL/min (70-130); Calcium 8.8 mg/dL (7.8-10.44); Carbon Dioxide 26 mmol/L (23-31); Chloride 81 mmol/L (98-107); Estimated GFR-MDRD Greater than 90; Glucose 132 mg/dL (80-115); Potassium 3.8 mmol/L (3.5-5.1)
[2019-06-17 22:00] LABS: Sodium 117 mmol/L (136-145)
[2019-06-18] MEDS: methylPREDNISolone Sod Succ 40 MG VIAL IVP SCH ×2 (00:05→05:45)
[2019-06-18] MEDS: Mometasone 200 MCG/Formoterol 5 MCG 120 PUFF INHALER INH SCH ×3 (00:27→18:22)
[2019-06-18 04:02] LABS: Anion Gap 13 mmol/L (10-20); BUN (Urea Nitrogen) 12 mg/dL (8.4-25.7); Calc. Creatinine Clearance 110 mL/min (70-130); Calcium 8.9 mg/dL (7.8-10.44); Carbon Dioxide 28 mmol/L (23-31); Chloride 80 mmol/L (98-107); Estimated GFR-MDRD Greater than 90; Glucose 112 mg/dL (80-115); Potassium 3.9 mmol/L (3.5-5.1)
[2019-06-18 04:08] LABS: Sodium 117 mmol/L (136-145)
[2019-06-18] MEDS ORDERED: Metoprolol Tartrate 25 MG TAB PO SCH (07:18)
[2019-06-18] MEDS: guaiFENesin ER 600 MG TAB PO SCH ×2 (08:01→20:39)
[2019-06-18] MEDS: Aspirin 325 MG TAB PO SCH (08:02)
[2019-06-18] MEDS: Thiamine 100 MG TAB PO SCH (08:02)
[2019-06-18] MEDS: Metoprolol Tartrate 50 MG TAB PO SCH ×2 (08:02→20:39)
[2019-06-18] MEDS: Folic Acid 1 MG TAB PO SCH (08:02)
--- NOTE | 2019-06-18 11:42 | PRG ---
DATE OF SERVICE: 06/18/2019 SUBJECTIVE: A 63-year-old gentleman, being seen for hyponatremia. The patient denied nausea, vomiting, or chest pain. PHYSICAL EXAMINATION: General: The patient is awake and alert. Vital Signs: Afebrile, pulse 84, breathing at 16, blood pressure 160/84. HEENT: Head normocephalic and atraumatic. Eyes intact, no ulcers. Nose intact, no ulcers. Ears intact, no ulcers. Neck: Supple. No JVD. Chest: Symmetrical and clear. Cardiovascular: Shows S1 and S2, no rub, no murmur. Gastrointestinal: Abdomen is soft, bowel sounds positive. Extremities: Show no edema or ulcers. Skin: Shows no rash or petechiae. Musculoskeletal: Shows no joint swelling or stiffness. Genitourinary: Shows no De La Paz or CVA tenderness. Neurologic: Motor intact. Cranial nerves intact. LABORATORY DATA: Showed hemoglobin 12.7, creatinine 0.58. ASSESSMENT AND PLAN: 1. Chronic kidney disease, stage 1, stable. 2. Hyponatremia, improved. We would recommend tighter fluid restriction. No need for hypertonic saline. Continue strict 800 mL fluid restriction. Job ID: [id number]
[2019-06-18 12:52] LABS: Anion Gap 15 mmol/L (10-20); BUN (Urea Nitrogen) 14 mg/dL (8.4-25.7); Calc. Creatinine Clearance 100 mL/min (70-130); Calcium 9.2 mg/dL (7.8-10.44); Carbon Dioxide 28 mmol/L (23-31); Chloride 80 mmol/L (98-107); Estimated GFR-MDRD Greater than 90; Glucose 98 mg/dL (80-115); Potassium 4.1 mmol/L (3.5-5.1)
[2019-06-18 12:54] LABS: Sodium 119 mmol/L (136-145)
--- NOTE | 2019-06-18 15:09 | PDOC.HOSPP ---
- Subjective Encounter Date: 06/18/19 Subjective: Doing ok. Wants to go home. No new complaints. - Objective Vital Signs & Weight: Vital Signs (12 hours) Temp Pulse Ox 06/18/19 11:18 98.6 F 06/18/19 08:00 93 L 06/18/19 07:09 97.6 F 06/18/19 04:00 97.9 F Weight Admit Weight 128 lb Weight 128 lb 8.472 oz Most Recent Monitor Data Heart Rate from ECG 84 NIBP 111/82 NIBP BP-Mean 91 Respiration from ECG 20 SpO2 98 I&O: 06/17/19 06/18/19 06/19/19 06:59 06:59 06:59 Intake Total 872 916 Output Total 1500 1050 Balance -758 -406 Result Diagrams: 06/17/19 03:06 06/18/19 11:34 Hospitalist ROS - Medication Medications: Active Medications Generic Name Dose Route Start Last Admin Trade Name Freq PRN Reason Stop Dose Admin Aspirin 325 mg 06/16/19 09:00 06/18/19 08:02 Aspirin PO 325 mg DAILY CARLOS MANUEL Administration Folic Acid 1 mg 06/17/19 09:00 06/18/19 08:02 Folvite PO 1 mg DAILY CARLOS MANUEL Administration Guaifenesin 1,200 mg 06/16/19 09:00 06/18/19 08:01 Mucinex PO 1,200 mg Q12HR CARLOS MANUEL Administration Metoprolol Tartrate 50 mg 06/18/19 09:00 06/18/19 08:02 Lopressor PO 50 mg BID CARLOS MANUEL Administration Mometasone Furoate/Formoterol Fumar 1 puff 06/16/19 18:30 06/18/19 07:11 Dulera 200 Mcg/5 Mcg Inhaler INH 1 puff BID-RT CARLOS MANUEL Administration Sodium Chloride 10 ml 06/16/19 09:00 06/18/19 08:02 Flush - Normal Saline IVF 10 ml Q12HR CARLOS MANUEL Administration Thiamine HCl 100 mg 06/17/19 09:00 06/18/19 08:02 Thiamine PO 100 mg DAILY CARLOS MANUEL Administration - Exam General Appearance: NAD, awake alert Heart: RRR, no murmur, no gallops, no rubs, normal peripheral pulses Respiratory: CTAB, no wheezes, no ronchi, normal chest expansion, no tachypnea, normal percussion, rales (Modest scattered.) Gastrointestinal: soft, non-tender, non-distended, normal bowel sounds, no palpable masses, no hepatomegaly, no splenomegaly, no bruit Skin: normal turgor Neurological: no focal deficits Musculoskeletal: diffuse muscle atrophy Psychiatric: normal affect, normal behavior, A&O x 3 Hosp A/P (1) Atrial fibrillation with RVR Code(s): I48.91 - UNSPECIFIED ATRIAL FIBRILLATION Status: Acute (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 Has good rate control now with metoprolol. Continue oral beta blockers. NOT a candidate for anticoagulation given his falls and alcohol abuse. Hyponatremia: Nephrology following. He has no symptoms and is accustomed to hyponatremia. Beer potomania and SIADH. Slowly improving. Will need to have some consistent protein intake to fully resolve this. Patient agrees to stay until tomorrow as his Na continues to improve. He understands the need to reduce the intake of beer and improve his nutritious food intake. Dysphagia: Appreciate IRRIGATION TECHNICIAN recs. Diet modifications and safe swallow techniques. Severe Malnutrition: He weighed 185 in 2013, 150's 2018, 130's last month and now 128. Poor intake except for beer. Consult Hydraulic Dredge Operator. COPD: Nebs, steroids as needed. Hx of supraglottic cancer: Reports that he is in remission.
--- NOTE | 2019-06-18 15:21 | PRG ---
DATE OF SERVICE: 06/17/2019 HISTORY OF PRESENT ILLNESS: Mr. Barreto states he has had increased shortness of breath over yesterday. His sodium has improved. His heart rate appears to be more stable. Heart rate 84 and blood pressure 111/82. OBJECTIVE: LUNGS: Rhonchi and rales bilaterally. HEART: Irregularly regular. ABDOMEN: Soft, nontender, and nondistended. EXTREMITIES: No edema. GENERAL: The patient appears disheveled. He had refused a bath over the last three days. PERTINENT LABORATORY DATA: Hemoglobin 12.7 and hematocrit 38. IMPRESSION: 1. Chronic atrial fibrillation. 2. Chronic obstructive pulmonary disease exacerbation. 3. Tobacco abuse. RECOMMENDATIONS: The patient is tolerating the increased beta katerine therapy . Continue pulmonary support. Cardizem has been discontinued. No further recommendations. Job ID: [id number]
[2019-06-19] MEDS: Mometasone 200 MCG/Formoterol 5 MCG 120 PUFF INHALER INH SCH ×2 (07:06→18:24)
[2019-06-19] MEDS: Aspirin 325 MG TAB PO SCH (08:05)
[2019-06-19] MEDS: Metoprolol Tartrate 50 MG TAB PO SCH ×2 (08:06→19:59)
[2019-06-19] MEDS: guaiFENesin ER 600 MG TAB PO SCH ×2 (08:06→19:59)
[2019-06-19] MEDS: Thiamine 100 MG TAB PO SCH (08:06)
[2019-06-19] MEDS: Folic Acid 1 MG TAB PO SCH (08:06)
[2019-06-19 08:48] LABS: Anion Gap 11 mmol/L (10-20); BUN (Urea Nitrogen) 16 mg/dL (8.4-25.7); Calc. Creatinine Clearance 95 mL/min (70-130); Carbon Dioxide 32 mmol/L (23-31); Chloride 82 mmol/L (98-107); Estimated GFR-MDRD Greater than 90; Glucose 91 mg/dL (80-115); Potassium 3.6 mmol/L (3.5-5.1); Sodium 121 mmol/L (136-145)
--- NOTE | 2019-06-19 10:50 | PRG ---
DATE OF SERVICE: 06/19/2019 SUBJECTIVE: A 63-year-old gentleman, being seen for hyponatremia. The patient denied nausea, vomiting, or chest pain. OBJECTIVE: GENERAL: The patient is awake and alert. VITAL SIGNS: Afebrile, pulse 70, breathing 16, blood pressure 127/87. HEENT: Head normocephalic and atraumatic. Eyes intact, no ulcers. Nose intact, no ulcers. Ears intact, no ulcers. Neck: Supple. No JVD. Chest: Symmetrical and clear. Cardiovascular: Shows S1 and S2, no rub, no murmur. Gastrointestinal: Abdomen is soft, bowel sounds positive. Extremities: Show no edema or ulcers. Skin: Shows no rash or petechiae. Musculoskeletal: Shows no joint swelling or stiffness. Genitourinary: Shows no De La Paz or CVA tenderness. Neurologic: Motor intact. Cranial nerves intact. PERTINENT LABORATORY DATA: Hemoglobin 12.7. Creatinine 0.6. ASSESSMENT AND PLAN: 1. Hyponatremia, improved. Continue fluid restriction. 2. Hypertension, stable. Medications based on GFR appropriate. Job ID: [id number]
--- NOTE | 2019-06-19 13:31 | PRG ---
DATE OF SERVICE: 06/19/2019 SUBJECTIVE: Mr. Barreto is doing much better. Heart rate is stable on increased beta katerine therapy. He is currently on metoprolol 50 mg p.o. b.i.d. OBJECTIVE: VITAL SIGNS: Heart rate 78, blood pressure 121/66, temperature 97.5. LUNGS: Rhonchi and rales bilaterally. HEART: Irregular regular. ABDOMEN: Soft, nontender, nondistended. EXTREMITIES: No edema. IMPRESSION: 1. Chronic atrial fibrillation. 2. Chronic obstructive pulmonary disease exacerbation. 3. Tobacco abuse. RECOMMENDATIONS: 1. Continue current dose of metoprolol. 2. Pulmonary support per primary team. 3. Continue aspirin; patient is not interested in anticoagulation therapy. He does not understand the risk of CVA. 4. Otherwise, I have no recommendations. We will follow up as an outpatient. Dr. Valenzuela will be on-call this weekend. Please call if questions arise. Job ID: [id number]
[2019-06-19 14:15] LABS: Anion Gap 10 mmol/L (10-20); BUN (Urea Nitrogen) 17 mg/dL (8.4-25.7); Calc. Creatinine Clearance 97 mL/min (70-130); Calcium 8.9 mg/dL (7.8-10.44); Carbon Dioxide 32 mmol/L (23-31); Chloride 83 mmol/L (98-107); Estimated GFR-MDRD Greater than 90; Glucose 83 mg/dL (80-115); Potassium 3.5 mmol/L (3.5-5.1); Sodium 121 mmol/L (136-145)
--- NOTE | 2019-06-19 16:01 | PDOC.HOSPP ---
- Subjective Encounter Date: 06/19/19 Subjective: Doing ok. Still has the cough. Continues to say I need to give him something so he can cough it up. Eager to go home, but does not want to leave AMA. - Objective Vital Signs & Weight: Vital Signs (12 hours) Temp Pulse Resp Pulse Ox 06/19/19 15:15 97.7 F 06/19/19 11:20 97.5 F L 06/19/19 08:03 106 H 20 90 L 06/19/19 08:00 97 06/19/19 07:10 98.1 F 06/19/19 07:06 95 19 96 Weight Admit Weight 128 lb Weight 128 lb 8.472 oz Most Recent Monitor Data Heart Rate from ECG 91 NIBP 141/68 NIBP BP-Mean 92 Respiration from ECG 16 SpO2 95 I&O: 06/18/19 06/19/19 06/20/19 06:59 06:59 06:59 Intake Total 916 794 Output Total 1050 950 Balance -134 -156 Result Diagrams: 06/17/19 03:06 06/19/19 13:47 Hospitalist ROS - Medication Medications: Active Medications Generic Name Dose Route Start Last Admin Trade Name Freq PRN Reason Stop Dose Admin Albuterol/Ipratropium 3 ml 06/16/19 08:48 06/19/19 08:03 Duoneb NEB 3 ml [id number] PRN Administration SOB &/or Wheezing Aspirin 325 mg 06/16/19 09:00 06/19/19 08:05 Aspirin PO 325 mg DAILY CARLOS MANUEL Administration Folic Acid 1 mg 06/17/19 09:00 06/19/19 08:06 Folvite PO 1 mg DAILY CARLOS MANUEL Administration Guaifenesin 1,200 mg 06/16/19 09:00 06/19/19 08:06 Mucinex PO 1,200 mg Q12HR CARLOS MANUEL Administration Levofloxacin 500 mg 06/19/19 06:00 06/19/19 05:40 Levaquin PO 500 mg 0600 CARLOS MANUEL Administration Metoprolol Tartrate 50 mg 06/18/19 09:00 06/19/19 08:06 Lopressor PO 50 mg BID CARLOS MANUEL Administration Mometasone Furoate/Formoterol Fumar 1 puff 06/16/19 18:30 06/19/19 07:06 Dulera 200 Mcg/5 Mcg Inhaler INH 1 puff BID-RT CARLOS MANUEL Administration Sodium Chloride 10 ml 06/16/19 09:00 06/19/19 08:06 Flush - Normal Saline IVF 10 ml Q12HR CARLOS MANUEL Administration Thiamine HCl 100 mg 06/17/19 09:00 06/19/19 08:06 Thiamine PO 100 mg DAILY CARLOS MANUEL Administration - Exam General Appearance: NAD, awake alert General - other findings: Cachectic. Heart: RRR, no murmur, no gallops, no rubs, normal peripheral pulses Respiratory: no wheezes, no ronchi, normal chest expansion, no tachypnea, normal percussion, rales Respiratory - other findings: Very coarse oropharyngeal breath sounds are baseline. 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 Has good rate control now with metoprolol. Continue oral beta blockers. NOT a candidate for anticoagulation given his falls and alcohol abuse. Appreciate Cardiology rec. Hyponatremia: Nephrology following. He has no symptoms and is accustomed to hyponatremia. Beer potomania and SIADH. Slowly improving. Will need to have some consistent protein intake to fully resolve this. Will likely need to be the mid to upper 120's to be safe to discharge. He understands the need to reduce the intake of beer and improve his nutritious food intake. I don't have a great deal of confidence that will happen. Dysphagia: Appreciate DRAWING FRAME TENDER recs. Diet modifications and safe swallow techniques. Severe Malnutrition: He weighed 185 in 2013, 150's 2018, 130's last month and now 128. Poor intake except for beer. Wool Scourer recs appreciated. COPD with acute bronchitis: Nebs, steroids as needed. Growing pseudomonas in sputum. Cover with Levaquin. Hx of supraglottic cancer: Reports that he is in remission.
[2019-06-20 04:08] VITALS: TEMP 98.6
--- NOTE | 2019-06-20 13:22 | PRG ---
DATE OF SERVICE: 06/20/2019 SUBJECTIVE: This 63-year-old gentleman being seen for hyponatremia. The patient denies nausea, vomiting, or chest pain. OBJECTIVE: GENERAL: The patient is awake and alert. VITAL SIGNS: Afebrile, pulse 75, breathing at 16, blood pressure 150/74. HEENT: Head normocephalic and atraumatic. Eyes intact, no ulcers. Nose intact, no ulcers. Ears intact, no ulcers. NECK: Supple. No JVD. CHEST: Symmetrical and clear. CARDIOVASCULAR: Shows S1 and S2, no rub, no murmur. GASTROINTESTINAL: Abdomen is soft, bowel sounds positive. EXTREMITIES: Show no edema or ulcers. SKIN: Shows no rash or petechiae. MUSCULOSKELETAL: Shows no joint swelling or stiffness. GENITOURINARY: Shows no De La Paz or CVA tenderness. NEUROLOGIC: Motor intact. Cranial nerves intact. PERTINENT LABORATORY DATA: Labs showed sodium 121, potassium 3.5. ASSESSMENT AND PLAN: 1. Chronic kidney disease stage 1, stable. 2. Hyponatremia. I would recommend checking a stat sodium Job ID: [id number]
--- NOTE | 2019-06-21 00:51 | DIS ---
DATE OF ADMISSION: 06/16/2019 DATE OF DISCHARGE: 06/20/2019 Date of discharge (patient left AMA): June 19. Mr. Barreto is a 63-year-old male, with a medical history of supraglottic cancer treated with chemo and radiation, COPD, tobacco abuse, atrial fibrillation, and SIADH, who presented for shortness of breath. He was diagnosed with atrial fibrillation with RVR, chronic hyponatremia, and severe malnutrition. For his atrial fibrillation, Cardiology was consulted, and metoprolol was increased. Rate was well controlled, and the patient refused to be on anticoagulation. For his hyponatremia, Nephrology was consulted. Fluid was restricted considering the patient's history of SIADH, and sodium improved from 114 on presentation to 121; however, the patient decided to leave AMA at 4:00 a.m. on the morning of the prior to the senior technical writer of this discharge summary being able to assess the patient. Vital signs prior to discharge were 150/74, heart rate was 104, respiratory rate 17, oxygen saturation was 100% on 3 L nasal cannula. Remaining exam could not be completed because the patient left AMA prior to arrival of the physician. Job ID: [id number]
== END 2019-06-20 04:28 | disposition left against medical advice (07) | DRG 643 ==
LOC: ERS 05:15 → IMCU/EMU 06:32
PROVIDERS: ADMIT Internal Medicine; ATTEND Internal Medicine
DX: E22.2 Syndrome of inappropriate secretion of antidiuretic hormone (principal); E43 Unspecified severe protein-calorie malnutrition; J44.1 Chronic obstructive pulmonary disease with (acute) exacerbation; Z68.1 Body mass index [BMI] 19.9 or less, adult; J44.0 Chronic obstructive pulmonary disease with (acute) lower respiratory infection; I48.91 Unspecified atrial fibrillation; F10.10 Alcohol abuse, uncomplicated; R13.10 Dysphagia, unspecified; F17.210 Nicotine dependence, cigarettes, uncomplicated; D64.9 Anemia, unspecified; N18.1 Chronic kidney disease, stage 1; I12.9 Hypertensive chronic kidney disease with stage 1 through stage 4 chronic kidney disease, or unspecified chronic kidney disease; J20.9 Acute bronchitis, unspecified; Z79.82 Long term (current) use of aspirin; Z91.19 Patient's noncompliance with other medical treatment and regimen; Z85.21 Personal history of malignant neoplasm of larynx; Z92.21 Personal history of antineoplastic chemotherapy; Z92.3 Personal history of irradiation; Z71.6 Tobacco abuse counseling
CPT/HCPCS: 36415; 71045; 80048; 80053; 83735; 83880; 83930; 83935; 84100; 84443; 84484; 85025; 87070; 87077; 87186; 87205; 93005; 94640; 96365; 96366; 96376; J2920; J3475; J3490; J7620

== ENCOUNTER 2019-06-26 17:46 | Inpatient (IN) | payer OTHER ==
[2019-06-26 18:21] LABS: #Lymphocytes 0.4 thou/uL (1.20-3.40); #Monocytes 0.7 thou/uL (0.11-0.59); #Neutrophils 7.6 thou/uL (1.40-6.50); %Eosinophils 0.4 % (0.0-10.0); %Lymphocytes 5.1 % (21.0-51.0); %Monocytes 7.6 % (0.0-10.0); Hemoglobin 12.7 g/dL (14.0-18.0); Mean Corpuscular HGB CONC 34.6 g/dL (32.0-36.0); Mean Corpuscular Hemoglobin 34.6 pg (27.0-31.0); Mean Platelet Volume 6.2 fL (7.4-10.4); Platelet Count 266 thou/uL (130-400); RBC Distribution Width 12.6 % (11.5-14.5); Red Blood Cell (RBC) Count 3.68 mill/uL (4.70-6.10); White Blood Cell (WBC) Count 8.7 thou/uL (4.8-10.8)
--- NOTE | 2019-06-26 18:23 | RAD ---
XR Chest 1 View Portable HISTORY: COPD COMPARISON: 06/16/2019 FINDINGS: The heart size normal. Changes of COPD are again seen. There are new patchy infiltrates rig ht lower lung IMPRESSION: Findings are suspicious for right basilar pneumonia
[2019-06-26] MEDS ORDERED: cefTRIAXone\\ROCEPHIN 2 GM VIAL ONE (18:34)
[2019-06-26 18:44] LABS: ALT (SGPT) 17 U/L (8-55); AST (SGOT) 13 U/L (5-34); Albumin 3.5 g/dL (3.4-4.8); Alkaline Phosphatase 110 U/L (40-110); Anion Gap 14 mmol/L (10-20); BUN (Urea Nitrogen) 5 mg/dL (8.4-25.7); Bilirubin, Total 1.8 mg/dL (0.2-1.2); Calc. Creatinine Clearance 0 mL/min (70-130); Carbon Dioxide 29 mmol/L (23-31); Chloride 76 mmol/L (98-107); Estimated GFR-MDRD Greater than 90; Globulin 2.6 g/dL (2.4-3.5); Glucose 86 mg/dL (80-115); Potassium 3.5 mmol/L (3.5-5.1); Protein, Total 6.1 g/dL (5.8-8.1)
[2019-06-26 18:48] LABS: Sodium 115 mmol/L (136-145)
[2019-06-26 18:49] LABS: Bilirubin Negative (Negative); Blood, Urine Negative (Negative); Clarity Clear (Clear); Glucose, Urine (Dipstick) Normal (Negative); Leukocyte Negative Leu/uL (Negative); Nitrite Negative (Negative); Protein, Urine (Dipstick) Negative (Neg-Trace)
[2019-06-26] MEDS ORDERED: Azithromycin 500 MG VIAL ONE (19:14)
[2019-06-26] MEDS ORDERED: Vancomycin 1 GM/200 ML BAG ONE (19:47)
--- NOTE | 2019-06-26 20:22 | CT ---
CT CHEST WITHOUT CONTRAST: 06/26/19 HISTORY: COPD, fever. FINDINGS: Absence of IV contrast reduces the sensitivity for the exam, particularly for evaluation of mediastin al, hilar and vascular structures. There are vascular calcifications without evidence of aneurysmal d ilatation of the thoracic aorta. There was a small pericardial effusion. No pleural effusions are see n. No pneumothoraces identified. There are tree-in-bud opacities in the lower lobes bilaterally. Ther e is also consolidation in the right lower lobe. A solid noncalcified 6 mm peripheral nodular density seen in the lateral aspect of the left lower lobe. Some of the mediastinal lymph nodes are enlarged measuring up to 11 mm. IMPRESSION: Findings are suspicious for pneumonia. 3 month F/U CT chest is recommended CODE T CODE LN POS: ALIVIA
[2019-06-26 21:11] LABS: Lactic Acid 0.9 mmol/L (0.5-2.2)
[2019-06-26] MEDS ORDERED: Diltiazem HCl 125 MG, Admixture Fee 1 EACH in Sodium Chloride 0.9% 100 ML IVPB SCH (21:15)
[2019-06-26] MEDS ORDERED: cloNIDine 0.1 MG TAB PO PRN (21:34)
[2019-06-26] MEDS ORDERED: hydrALAZINE 20 MG/ML VIAL SLOW IVP PRN (21:34)
[2019-06-26] MEDS ORDERED: Ondansetron PF 4 MG/2 ML Vial IVP PRN (21:34)
[2019-06-26] MEDS ORDERED: Promethazine HCl 12.5 MG in Sodium Chloride 0.9% 50 ML IVPB PRN (21:34)
[2019-06-26] MEDS ORDERED: HYDROcodone/Acetaminophen 5/325 mg Tablet PO PRN (21:36)
[2019-06-26] MEDS ORDERED: Senokot S 8.6-50 MG TAB PO PRN (21:36)
[2019-06-26] MEDS ORDERED: Bisacodyl 5 MG TAB PO PRN (21:36)
[2019-06-26] MEDS ORDERED: Guaifenesin DM 100-10/5 ML UDCUP PO PRN (21:36)
[2019-06-26] MEDS ORDERED: Acetaminophen 325 MG TAB PO PRN (21:36)
--- NOTE | 2019-06-26 21:39 | PDOC.HHP ---
Hospitalist HPI - History of Present Illness Abnormal labwork History of Present Illness: Patient is a 63 year old male with PMH COPD, supraglottic cancer (s/p chemo and radiation), SIADH ,tobacco abuse, atrial fibrillation who presents to ED for abnormal lab work, patient was recently admitted to the hospital for shortness of breath and was discharged on 06/19 after leaving AMA, patient was thought to have SOB secondary to atrial fibrillation at that time and had increased metoprolol dose during that admission, also nephrology was consulted for chronic SIADH and low sodium which improved with fluid restrictions. Patient went home and reports he was doing well, went to PCP today and had labwork drawn , he was called and told Na was low and needed to go to hospital, here Na was 115 (was last 121 on 06/18 but has been 115 in recent weeks and even low, to 110 on 06.15). Patent reports he feels fine, no issues at home, he is audibly wheezing on interview and minimizes this and restates he feels fine, no SOB/ chest pain/fever/chills/sore throat/congestion etc. In ED, patient had workup with CXR revealing RLL pneumonia, CT chest w/ RLL pneumonia suggested as well, also 3 month follow up recommended. He also reports a wound on his neck being treated with bactrim. Hospitalist ROS - Review of Systems Constitutional: denies: fever, chills Eyes: denies: pain, vision change, other ENT: denies: ear pain, ear discharge Respiratory: denies: cough, dry, shortness of breath Cardiovascular: denies: chest pain, palpitations Gastrointestinal: denies: nausea, vomiting Genitourinary: denies: dysuria, frequency Musculoskeletal: denies: neck pain, shoulder pain Skin: reports: lesions (neck). denies: rash Neurological: denies: weakness, numbness All other systems reviewed; all pertinent +/- noted in HPI/Subj Hospitalist History - Past Medical History Other Medical History: arrhythmia, atrial fibrillation, coronary artery disease, chronic obstructive pulmonary disease, malignant neoplasm of supraglottis tx with radiation / chemotherapy - Past Surgical History Other Surgical History: right neck cyst removed - Family History Other Family History: reviewed, no relevant FH - Social History Other Social History: Patient denies alcohol use, Patient denies drug use, Patient currently uses tobacco, smokes cigarettes, Patient smokes a few cigarettes to none per day - previous hx 1-1.5 ppd. ED records state drinks a six pack a day - Exam General Appearance: NAD, awake alert Eye: PERRL, anicteric sclera ENT: normocephalic atraumatic, dry oral mucosa ENT - other findings: neck wound deep and with serous drainage appx 2 cm on R neck no erythema Neck: supple, no JVD Neck - other findings: neck wound as above Heart - other findings: irregular, tachycardia Respiratory: tachypneic, wheezes Gastrointestinal: soft, non-tender, non-distended, normal bowel sounds Extremities: no cyanosis, no clubbing Skin - other findings: stage 3 sacral pressure ulcer Neurological: cranial nerve grossly intact, normal sensation to touch, no weakness, no focal deficits, no new deficit Musculoskeletal: normal tone, normal strength, no muscle wasting Psychiatric: normal affect, normal behavior, A&O x 3 Hospitalist Results - Labs Result Diagrams: 06/26/19 18:04 06/26/19 18:04 Lab results: WBC 8.7 thou/uL (4.8-10.8) 06/26/19 18:04 Hgb 12.7 g/dL (14.0-18.0) L 06/26/19 18:04 Hct 36.8 % (42.0-52.0) L 06/26/19 18:04 MCV 100.0 fL (78.0-98.0) H 06/26/19 18:04 Plt Count 266 thou/uL (130-400) 06/26/19 18:04 Neutrophils % 87.0 % (42.0-75.0) H 06/26/19 18:04 Sodium 115 mmol/L (136-145) L* 06/26/19 18:04 Potassium 3.5 mmol/L (3.5-5.1) 06/26/19 18:04 Chloride 76 mmol/L (98-107) L 06/26/19 18:04 Carbon Dioxide 29 mmol/L (23-31) 06/26/19 18:04 BUN 5 mg/dL (8.4-25.7) L 06/26/19 18:04 Creatinine 0.63 mg/dL (0.7-1.3) L 06/26/19 18:04 Glucose 86 mg/dL (80-115) 06/26/19 18:04 Lactic Acid 0.9 mmol/L (0.5-2.2) 06/26/19 20:46 Calcium 9.0 mg/dL (7.8-10.44) 06/26/19 18:04 Total Bilirubin 1.8 mg/dL (0.2-1.2) H 06/26/19 18:04 AST 13 U/L (5-34) 06/26/19 18:04 ALT 17 U/L (8-55) 06/26/19 18:04 Alkaline Phosphatase 110 U/L (40-110) 06/26/19 18:04 Creatine Kinase 21 U/L (30-200) L 06/26/19 18:04 CK-MB (CK-2) 1.0 ng/mL (0-6.6) 06/26/19 18:04 Troponin I 0.029 ng/mL (< 0.028) H 06/26/19 18:04 Serum Total Protein 6.1 g/dL (5.8-8.1) 06/26/19 18:04 Albumin 3.5 g/dL (3.4-4.8) 06/26/19 18:04 Urine Ketones Negative mg/dL (Negative) 06/26/19 18:30 Urine Blood Negative (Negative) 06/26/19 18:30 Urine Nitrite Negative (Negative) 06/26/19 18:30 Ur Leukocyte Esterase Negative Di/uL (Negative) 06/26/19 18:30 Additional comment: VITAL SIGNS SatJune 26, 2019 21:45 PATRICK Burns, Jose BP: 107/79 (Sitting) MAP: 88 Pulse: 112 (Regular) Resp: 14 (Non-Labored) O2 sat: 97 on (Room Air) Time: 06/26/2019 21:45. - EKG Interpretation EKG: atrial fibrillation [address] changes Hospitalist H&P A/P - Problem (1) SIADH (syndrome of inappropriate ADH production) Status: Acute (2) Atrial fibrillation with RVR Code(s): I48.91 - UNSPECIFIED ATRIAL FIBRILLATION Status: Acute (3) Hyponatremia Code(s): E87.1 - HYPO-OSMOLALITY AND HYPONATREMIA Status: Acute (4) Severe malnutrition Code(s): E43 - UNSPECIFIED SEVERE PROTEIN-CALORIE MALNUTRITION Status: Acute (5) Squamous cell carcinoma, keratinizing Code(s): C44.92 - SQUAMOUS CELL CARCINOMA OF SKIN, UNSPECIFIED Status: Acute (6) COPD (chronic obstructive pulmonary disease) Status: Chronic (7) Cancer of supraglottis Code(s): C32.1 - MALIGNANT NEOPLASM OF SUPRAGLOTTIS Status: Resolved (8) Pneumonia Code(s): J18.9 - PNEUMONIA, UNSPECIFIED ORGANISM Status: Acute (9) Sepsis Code(s): A41.9 - SEPSIS, UNSPECIFIED ORGANISM Status: Acute - Plan Plan: Patient is a 63 year old male with PMH COPD, supraglottic cancer (s/p chemo and radiation), SIADH ,tobacco abuse, atrial fibrillation who presents to ED for abnormal lab work, found to have RLL pneumonia. # RLL pneumonia with COPD exacerbation - admit to IMCU w/ telemetry - continue azithromycin and ceftriaxone - nebs PRN + scheduled - IV steroids ordered - consult pulmonary # atrial fibrillation with RVR - metoprolol increased last admission but left ama, hold metoprolol for now continue diltiazem drip and consult cardiology - reportedly was refusing anticoag last admission, continue full dose asa and dvt dose heparin # hyponatremia in setting of chronic SIADH - no mental status changes, improved last admission with fluid restriction - continue fluid restrictions and consult nephrology # history of supraglottic cancer (s/p chemo and radiation) # history of alcohol and tobacco abuse - noted, reports quit # cellulitis of neck ulcer - mild, continue vancomycin, consult wound care in AM - had previous neck cyst removed, may need plastic/general surgery follow up outpatient for wound care # history of CAD - continue ASA # sepsis, elevated lactate - mild, no fluid bolus can be given due to SIADH, recheck labs in AM # abnormal chest imaging - rescan in [address] and contrast DVT ppx - chemical, mechanical GI ppx full code
[2019-06-26] MEDS ORDERED: Sodium Chloride 0.9% 1,000 ML IV SCH (21:45)
[2019-06-26] MEDS ORDERED: Albuterol 200 PUFF (6.7GM INHALER) INH PRN (21:50)
[2019-06-26] MEDS ORDERED: Azithromycin 500 MG in Sodium Chloride 0.9% 250 ML 250 ML IVPB SCH (22:00)
[2019-06-26 22:07] LABS: Troponin I Less than 0.010 ng/mL (< 0.028)
[2019-06-26] MEDS: methylPREDNISolone Sod Succ 40 MG VIAL IVP SCH (23:05)
[2019-06-27] MEDS: Albuterol 200 PUFF (6.7GM INHALER) INH SCH ×8 (00:22→22:19)
[2019-06-27] MEDS ORDERED: Diltiazem 125 MG in Sodium Chloride 0.9% 100 ML IVPB SCH (01:45)
[2019-06-27 03:52] LABS: #Basophils 0.1 thou/uL (0.0-0.2); #Lymphocytes 0.2 thou/uL (1.20-3.40); #Monocytes 0.3 thou/uL (0.11-0.59); #Neutrophils 9.1 thou/uL (1.40-6.50); %Basophils 0.6 % (0.0-1.0); %Eosinophils 0.1 % (0.0-10.0); %Lymphocytes 1.8 % (21.0-51.0); %Monocytes 2.7 % (0.0-10.0); %Neutrophils 94.8 % (42.0-75.0); Hemoglobin 11.2 g/dL (14.0-18.0); Mean Corpuscular HGB CONC 35.5 g/dL (32.0-36.0); Mean Corpuscular Hemoglobin 35.5 pg (27.0-31.0); Mean Corpuscular Volume 99.8 fL (78.0-98.0); Platelet Count 227 thou/uL (130-400); RBC Distribution Width 12.6 % (11.5-14.5); Red Blood Cell (RBC) Count 3.15 mill/uL (4.70-6.10); White Blood Cell (WBC) Count 9.6 thou/uL (4.8-10.8)
[2019-06-27 04:07] LABS: Lactic Acid 0.9 mmol/L (0.5-2.2)
[2019-06-27 04:13] LABS: Anion Gap 13 mmol/L (10-20); BUN (Urea Nitrogen) 5 mg/dL (8.4-25.7); Calc. Creatinine Clearance 105 mL/min (70-130); Calcium 8.3 mg/dL (7.8-10.44); Carbon Dioxide 27 mmol/L (23-31); Chloride 82 mmol/L (98-107); Estimated GFR-MDRD Greater than 90; Glucose 94 mg/dL (80-115); Magnesium 1.4 mg/dL (1.6-2.6); Potassium 3.5 mmol/L (3.5-5.1)
[2019-06-27 04:16] LABS: Troponin I 0.019 ng/mL (< 0.028)
[2019-06-27 04:22] LABS: Sodium 118 mmol/L (136-145)
[2019-06-27] MEDS: Vancomycin HCl 750 MG in Sodium Chloride 0.9% 250 ML 250 ML IVPB SCH ×2 (05:37→16:39)
[2019-06-27] MEDS: methylPREDNISolone Sod Succ 40 MG VIAL IVP SCH ×3 (05:37→21:40)
[2019-06-27] MEDS: Mometasone 200 MCG/Formoterol 5 MCG 120 PUFF INHALER INH SCH ×2 (05:40→18:30)
[2019-06-27] MEDS: Azithromycin 250 MG TAB PO SCH (08:27)
[2019-06-27] MEDS: Famotidine 20 MG TAB PO SCH ×2 (08:27→21:40)
[2019-06-27] MEDS: Aspirin 325 MG TAB PO SCH (08:27)
[2019-06-27] MEDS: Enoxaparin Sodium 40 MG/0.4 ML SYRINGE SC SCH (08:27)
[2019-06-27] MEDS: Polyethylene Glycol 3350 17 GM Packet PO SCH (08:28)
[2019-06-27] MEDS ORDERED: Tolvaptan 15 MG TAB PO SCH (11:45)
--- NOTE | 2019-06-27 12:57 | CON ---
DATE OF CONSULTATION: 06/27/2019 HISTORY OF PRESENT ILLNESS: Janes Barreto is a 63-year-old male, who went to his doctor, who did blood work on him. He was called and told to go to the ER because he was hyponatremic again. He says he has not been eating at home. He denies drinking. He says he has not smoked for a month. PAST MEDICAL HISTORY: Remarkable for: 1. COPD with ongoing tobacco use up until a month ago. 2. History of chronic heavy alcohol use. 3. History of throat cancer, status post chemo and radiation. 4. History of hyponatremia, that was believed in the past to be secondary to poor protein intake and chronic heavy alcohol abuse (beer drinkers potomania). 5. History of atrial fibrillation, currently in atrial fibrillation. FAMILY HISTORY: Negative for lung disease in early age. REVIEW OF SYSTEMS: Otherwise, negative. PHYSICAL EXAMINATION: GENERAL: He is in no distress. VITAL SIGNS: Heart rate is 100, blood pressure 94/63, respiratory rate is 20. He is in atrial fibrillation. HEAD AND NECK: Unchanged from his last visit. LUNGS: Clear. HEART: Regular rhythm. ABDOMEN: Soft. EXTREMITIES: Without edema. LABORATORY DATA: White count 9.6, hemoglobin 11.2, platelets 227. Sodium 118, sodium was 115 yesterday; potassium 3.5; chloride 82; bicarb 27; BUN 5; creatinine 0.5. Thyroid function was normal when checked a little over a week ago. IMPRESSION AND PLAN: 1. Recent mechanical ventilation for chronic obstructive pulmonary disease exacerbation. 2. History of throat cancer. 3. Hyponatremia. 4. History of heavy tobacco until a month ago. 5. Alcoholism. He says he is basically abstinent now. He should be treated with fluid restriction, serial exams. This is a 70 min consult with greater than 50% of the time spent on the unit with coordination of care. Job ID: [id number] MTDD
[2019-06-27] MEDS: Sodium Chloride 1 GM TAB PO SCH ×3 (12:58→21:40)
[2019-06-27 13:10] LABS: Anion Gap 13 mmol/L (10-20); BUN (Urea Nitrogen) 8 mg/dL (8.4-25.7); Calc. Creatinine Clearance 104 mL/min (70-130); Calcium 8.3 mg/dL (7.8-10.44); Carbon Dioxide 24 mmol/L (23-31); Chloride 84 mmol/L (98-107); Estimated GFR-MDRD Greater than 90; Glucose 161 mg/dL (80-115); Potassium 3.6 mmol/L (3.5-5.1)
--- NOTE | 2019-06-27 13:17 | CON ---
DATE OF CONSULTATION: 06/27/2019 CONSULTING PHYSICIAN: REASON FOR CONSULTATION: Hyponatremia. REASON FOR ADMISSION: Abnormal labs. HISTORY OF PRESENT ILLNESS: This is a 63-year-old male with history of COPD, supraglottic cancer, and SIADH, came to the hospital with above complaints. Nephrology was consulted for hyponatremia. Sodium was 115. He is on fluid restriction. PAST MEDICAL HISTORY: Positive for atrial fibrillation, coronary artery disease, COPD, and malignant neoplasm. PAST SURGICAL HISTORY: Right neck cyst removal. MEDICATIONS: Reviewed. ALLERGIES: NO KNOWN DRUG ALLERGIES. SOCIAL HISTORY: History of smoking in the past. No alcohol. FAMILY HISTORY: No history of kidney disease. REVIEW OF SYSTEMS: CONSTITUTIONAL: Negative for weight loss or gain, ability to conduct usual activities. SKIN: Negative for rash, itching. EYES: Negative for double vision, pain. ENT/MOUTH: Negative for nose bleeding, neck stiffness, pain, tenderness. CARDIOVASCULAR: Negative for palpitations, dyspnea on exertion, orthopnea. RESPIRATORY: Negative for shortness of breath, wheezing, cough, hemoptysis, fever or night sweats. GASTROINTESTINAL: Negative for poor appetite, abdominal pain, heartburn, nausea, vomiting, constipation, or diarrhea. GENITOURINARY: Negative for urgency, frequency, dysuria, nocturia. MUSCULOSKELETAL: Negative for pain, swelling. NEUROLOGIC/PSYCHIATRIC: Negative for anxiety, depression. ALLERGY/IMMUNOLOGIC: Negative for skin rash, bleeding tendency. PHYSICAL EXAMINATION: GENERAL: This is a well-built male, in no apparent distress. VITAL SIGNS: Temperature 97.6, pulse 101, respiratory rate 20, blood pressure 94/63. LABORATORY DATA: Sodium 118, potassium 3.5, BUN is 5, creatinine 0.5. ASSESSMENT AND PLAN: 1. Hyponatremia. Check labs, and we will start on tolvaptan and limit fluid intake. 2. Hypochloremia. 3. Mild hypokalemia. 4. Syndrome of inappropriate antidiuretic hormone secretion. 5. History of malignancy. We will continue to monitor sodium. We will give tolvaptan and limit fluid intake. We will follow. Job ID: [id number]
[2019-06-27 13:19] LABS: SARS-CoV-2 MS2 Positive; SARS-CoV-2 N Gene Negative; SARS-CoV-2 S Gene Negative; SARS-CoV-2 orf1ab Negative
[2019-06-27 13:24] LABS: Sodium 117 mmol/L (136-145)
[2019-06-27 14:01] LABS: Potassium, Urine 18.9 mmol/L
--- NOTE | 2019-06-27 17:36 | CON ---
DATE OF CONSULTATION: 06/27/2019 REASON FOR CONSULTATION: Atrial fibrillation with RVR. PRIMARY SOLAR MAINTENANCE TECHNICIAN: Gary Rojas MD HISTORY OF PRESENT ILLNESS: Mr. Barreto is a 63-year-old gentleman who comes to the hospital for hyponatremia. He had blood drawn by his primary care doctor and found that his sodium was extremely reduced, it was at 115, so he was told to go to the ER immediately. In the ER, he was admitted for hyponatremia. He was found to be in atrial fibrillation with RVR. He is chronically in atrial fibrillation with heart rate in the 120s and 130s. He did not feel any palpitations or any increased shortness of breath. He was recently admitted for severe COPD exacerbation and required intubation. PAST MEDICAL HISTORY: 1. COPD. 2. Chronic atrial fibrillation. 3. Chronic heavy alcohol use. 4. Throat cancer, status post chemoradiation. 5. Hyponatremia, secondary to poor protein intake and chronic alcohol use. PAST SURGICAL HISTORY: Removal of cyst of the right neck. FAMILY HISTORY: Noncontributory. SOCIAL HISTORY: Smokes a pack of cigarettes per week and drinks 12-pack of beer a day. . OUTPATIENT MEDICATIONS: 1. Bactrim DS. 2. Omeprazole. 3. Symbicort. 4. Aspirin. 5. Albuterol. 6. Metoprolol tartrate 50 mg b.i.d. ALLERGIES: NO KNOWN DRUG ALLERGIES. REVIEW OF SYSTEMS: A 12-point review of systems was done and was all negative unless stated in History of Present Illness. PHYSICAL EXAMINATION: VITAL SIGNS: Temperature 98.0, pulse 91, respiratory rate 20, saturating 93% on room air, and blood pressure 99/60. GENERAL: Awake, alert, and oriented x3, in no distress. HEENT: Normocephalic, atraumatic. NECK: Supple. LUNGS: Have reduced breath sounds, but very mild expiratory wheezes. CARDIOVASCULAR: Heart rate in the 90s to low 100s, irregularly irregular, grade 3/6 systolic murmur at the apex. ABDOMEN: Soft. Positive bowel sounds. EXTREMITIES: No edema. SKIN: Warm and dry. LABORATORY DATA: Laboratory work was reviewed. Sodium of 115 on admission, up to 117 now. Normal BUN and creatinine. Troponin was negative x2. UA was reviewed. Hematology with a hemoglobin of 12.7 on admission down to 11.2, platelet count of 266, normal white count. COVID-19 PCR was not detected. UA was reviewed. ASSESSMENT: 1. Atrial fibrillation with rapid ventricular response. 2. Hyponatremia. 3. Alcohol abuse. 4. Chronic obstructive pulmonary disease without acute exacerbation. PLAN: 1. Continue current regimen. He is on a low-dose diltiazem drip and his heart rate is still in the 90s to low 100s. We will continue this for now. 2. Hyponatremia per Nephrology. 3. We will up titrate diltiazem as needed for lenient rate control less than 110. Thank you for letting us to participate in the care of your patient. We will follow. Job ID: [id number]
[2019-06-27] MEDS: cefTRIAXone\\ROCEPHIN 1 GM in Sodium Chloride 0.9% 100 ML IVPB SCH (18:00)
--- NOTE | 2019-06-27 20:28 | PDOC.HOSPP ---
- Subjective Encounter Date: 06/27/19 Subjective: The patient is still complaining of generalized weakness and shortness of breath. - Objective Vital Signs & Weight: Vital Signs (12 hours) Temp Pulse Resp BP Pulse Ox 06/27/19 18:30 108 H 18 91 L 06/27/19 15:15 98.0 F 91 20 99/60 93 L 06/27/19 12:00 97.7 F Weight Admit Weight 113 lb 12.1 oz Weight 115 lb 1.296 oz Most Recent Monitor Data Heart Rate from ECG 92 NIBP 81/50 NIBP BP-Mean 60 Respiration from ECG 18 SpO2 96 I&O: 06/26/19 06/27/19 06/28/19 06:59 06:59 06:59 Intake Total 240 1422 Output Total 350 2125 Balance -110 -703 Result Diagrams: 06/27/19 03:41 06/27/19 12:21 Hospitalist ROS - Medication Medications: Active Medications Generic Name Dose Route Start Last Admin Trade Name Freq PRN Reason Stop Dose Admin Albuterol Sulfate 2 puff 06/26/19 22:30 06/27/19 18:29 Proventil Hfa INH 2 puff [id number] CARLOS MANUEL Administration Aspirin 325 mg 06/27/19 09:00 06/27/19 08:27 Aspirin PO 325 mg DAILY CARLOS MANUEL Administration Azithromycin 250 mg 06/27/19 09:00 06/27/19 08:27 Zithromax PO 06/30/19 09:01 250 mg DAILY CARLOS MANUEL Administration Enoxaparin Sodium 40 mg 06/27/19 09:00 06/27/19 08:27 Lovenox SC 40 mg 0900 CARLOS MANUEL Administration Famotidine 20 mg 06/27/19 09:00 06/27/19 08:27 Pepcid PO 20 mg BID CARLOS MANUEL Administration Ceftriaxone Sodium 1 gm/ 100 mls @ 200 mls/hr 06/27/19 18:00 06/27/19 18:00 Sodium Chloride IVPB 07/01/19 18:29 100 mls Q24HR CARLOS MANUEL Administration Vancomycin HCl 750 mg/ Sodium 250 mls @ 250 mls/hr 06/27/19 05:00 06/27/19 16 :39 Chloride IVPB 07/04/19 17:01 250 mls 0500,1700 CARLOS MANUEL Administration Methylprednisolone Sodium Succinate 60 mg 06/26/19 22:00 06/27/19 13:00 Solu-Medrol IVP 60 mg Q8HR CARLOS MANUEL Administration Mometasone Furoate/Formoterol Fumar 2 puff 06/27/19 06:30 06/27/19 18:30 Dulera 200 Mcg/5 Mcg Inhaler INH 2 puff BID-RT CARLOS MANUEL Administration Polyethylene Glycol 17 gm 06/27/19 09:00 06/27/19 08:28 Miralax PO Not Given DAILY CARLOS MANUEL Sodium Chloride 10 ml 06/27/19 09:00 06/27/19 08:28 Flush - Normal Saline IVF 10 ml Q12HR CARLOS MANUEL Administration Sodium Chloride 1 gm 06/27/19 11:30 06/27/19 16:39 Sodium Chloride PO 1 gm ACHS CARLOS MANUEL Administration - Exam General Appearance: awake alert ENT: normocephalic atraumatic Neck: supple Respiratory: rhonchi, wheezes Gastrointestinal: soft, non-tender, non-distended Neurological: cranial nerve grossly intact, no focal deficits Hosp A/P (1) COPD exacerbation Code(s): J44.1 - CHRONIC OBSTRUCTIVE PULMONARY DISEASE W (ACUTE) EXACERBATION Status: Acute (2) Pneumonia Code(s): J18.9 - PNEUMONIA, UNSPECIFIED ORGANISM Status: Acute (3) SIADH (syndrome of inappropriate ADH production) Status: Acute (4) Sepsis Code(s): A41.9 - SEPSIS, UNSPECIFIED ORGANISM Status: Acute (5) Atrial fibrillation with RVR Code(s): I48.91 - UNSPECIFIED ATRIAL FIBRILLATION Status: Acute (6) Severe malnutrition Code(s): E43 - UNSPECIFIED SEVERE PROTEIN-CALORIE MALNUTRITION Status: Acute (7) Cancer of supraglottis Code(s): C32.1 - MALIGNANT NEOPLASM OF SUPRAGLOTTIS Status: Resolved - Plan Continue nebulizer treatments, antibiotics, and corticosteroids for his pneumonia and COPD exacerbation. On diltiazem drip titrated to a goal of heart rate less than 110. Appreciate cardiology. Severe hyponatremia secondary to SIADH. On 800 cc fluid restriction with oral salt tablets. Nephrology started tolvaptan. Check BMP tonight and then again in the morning. Our goal of sodium correction is less than 8 mEq within 24 hours.
[2019-06-27 21:22] LABS: Anion Gap 13 mmol/L (10-20); BUN (Urea Nitrogen) 8 mg/dL (8.4-25.7); Calc. Creatinine Clearance 91 mL/min (70-130); Calcium 8.9 mg/dL (7.8-10.44); Carbon Dioxide 26 mmol/L (23-31); Chloride 92 mmol/L (98-107); Estimated GFR-MDRD Greater than 90; Glucose 165 mg/dL (80-115); Potassium 3.3 mmol/L (3.5-5.1); Sodium 128 mmol/L (136-145)
[2019-06-28] MEDS: Albuterol 200 PUFF (6.7GM INHALER) INH SCH ×6 (01:57→22:24)
[2019-06-28 04:29] LABS: #Lymphocytes 0.2 thou/uL (1.20-3.40); #Monocytes 0.4 thou/uL (0.11-0.59); %Basophils 0.3 % (0.0-1.0); %Lymphocytes 1.7 % (21.0-51.0); %Monocytes 4.4 % (0.0-10.0); %Neutrophils 93.5 % (42.0-75.0); Hemoglobin 11.3 g/dL (14.0-18.0); Mean Corpuscular HGB CONC 35.1 g/dL (32.0-36.0); Mean Corpuscular Hemoglobin 35.3 pg (27.0-31.0); Mean Platelet Volume 6.2 fL (7.4-10.4); Platelet Count 291 thou/uL (130-400); RBC Distribution Width 12.6 % (11.5-14.5); Red Blood Cell (RBC) Count 3.21 mill/uL (4.70-6.10); White Blood Cell (WBC) Count 9.6 thou/uL (4.8-10.8)
[2019-06-28 04:54] LABS: Anion Gap 14 mmol/L (10-20); BUN (Urea Nitrogen) 7 mg/dL (8.4-25.7); Calc. Creatinine Clearance 84 mL/min (70-130); Calcium 9.2 mg/dL (7.8-10.44); Carbon Dioxide 26 mmol/L (23-31); Chloride 94 mmol/L (98-107); Estimated GFR-MDRD Greater than 90; Glucose 143 mg/dL (80-115); Magnesium 1.7 mg/dL (1.6-2.6); Potassium 3.3 mmol/L (3.5-5.1); Sodium 131 mmol/L (136-145)
[2019-06-28] MEDS: Vancomycin HCl 750 MG in Sodium Chloride 0.9% 250 ML 250 ML IVPB SCH ×3 (05:51→17:57)
[2019-06-28] MEDS: methylPREDNISolone Sod Succ 40 MG VIAL IVP SCH ×3 (05:56→22:23)
[2019-06-28] MEDS: Mometasone 200 MCG/Formoterol 5 MCG 120 PUFF INHALER INH SCH ×2 (06:15→18:54)
[2019-06-28] MEDS: Famotidine 20 MG TAB PO SCH ×2 (09:36→19:42)
[2019-06-28] MEDS: Sodium Chloride 1 GM TAB PO SCH ×4 (09:36→19:42)
[2019-06-28] MEDS: Aspirin 325 MG TAB PO SCH (09:36)
[2019-06-28] MEDS: Azithromycin 250 MG TAB PO SCH (09:36)
[2019-06-28] MEDS: Enoxaparin Sodium 40 MG/0.4 ML SYRINGE SC SCH (09:36)
[2019-06-28] MEDS: Polyethylene Glycol 3350 17 GM Packet PO SCH (09:37)
--- NOTE | 2019-06-28 14:03 | PDOC.CPN ---
- Subjective Date: 06/28/19 Time: 14:01 Interval history: Breathing at baseline. No angina. - Review of Systems General: denies: fever/chills, weight/appetite/sleep changes, night sweats, fatigue Respiratory: denies: cough, congestion, shortness of breath, exercise intolerance Cardiovascular: denies: chest pain, palpitation, edema, paroxysmal nocturnal dyspnea, orthopnea Gastrointestinal: denies: nausea, vomiting, diarrhea, constipation, abd pain, GI bleeding Musculoskeletal: denies: pain, tenderness, stiffness, swelling, arthritis/ arthralgias Neurological: denies: numbness, syncope, seizure, weakness - Objective Allergies/Adverse Reactions: Allergies Allergy/AdvReac Type Severity Reaction Status Date / Time No Known Allergies Allergy Verified 06/07/19 18:46 Visit Medications: Current Medications Acetaminophen (Tylenol) 650 mg PO Q4H PRN PRN Reason: Headache/Fever/Mild Pain (1-3) Hydrocodone Bitart/Acetaminophen (Antelope 5/325) 1 tab PO Q4H PRN PRN Reason: Moderate Pain (4-6) Albuterol Sulfate (Proventil Hfa) 2 puff INH [id number] [facility] Last Admin: 06/28/19 10:45 Dose: 2 puff Albuterol Sulfate (Proventil Hfa) 2 puff INH Q4H PRN PRN Reason: SOB &/or Wheezing Aspirin (Aspirin) 325 mg PO DAILY [facility] Last Admin: 06/28/19 09:36 Dose: 325 mg Azithromycin (Zithromax) 250 mg PO DAILY [facility] Stop: 06/30/19 09:01 Last Admin: 06/28/19 09:36 Dose: 250 mg Bisacodyl (Dulcolax) 10 mg PO DAILYPRN PRN PRN Reason: Constipation Clonidine (Catapres) 0.1 mg PO BIDPRN PRN PRN Reason: SBP > 160 use second Enoxaparin Sodium (Lovenox) 40 mg SC 0900 [facility] Last Admin: 06/28/19 09:36 Dose: 40 mg Famotidine (Pepcid) 20 mg PO BID [facility] Last Admin: 06/28/19 09:36 Dose: 20 mg Guaifenesin/Dextromethorphan (Robitussin Dm) 15 ml PO Q4H PRN PRN Reason: Cough Hydralazine HCl (Apresoline) 10 mg SLOW IVP Q6H PRN PRN Reason: SBP GREATER THAN 160 Ceftriaxone Sodium 1 gm/ (Sodium Chloride) 100 mls @ 200 mls/hr IVPB Q24HR [facility] Stop: 07/01/19 18:29 Last Admin: 06/27/19 18:00 Dose: 100 mls Promethazine HCl 12.5 mg/ (Sodium Chloride) 50.5 mls @ 202 mls/hr IVPB Q6H PRN PRN Reason: Nausea/vomiting use second Diltiazem HCl 125 mg/ Sodium (Chloride) 125 mls @ 5 mls/hr IVPB INF [facility]; Protocol Vancomycin HCl 750 mg/ Sodium (Chloride) 250 mls @ 250 mls/hr IVPB Q8HR [facility] Stop: 07/04/19 22:01 Last Admin: 06/28/19 05:56 Dose: 250 mls Methylprednisolone Sodium Succinate (Solu-Medrol) 60 mg IVP Q8HR [facility] Last Admin: 06/28/19 05:56 Dose: 60 mg Miscellaneous Medication (Pharmacy To Dose) 1 each IVPB PRN PRN PRN Reason: Pharmacy to dose Mometasone Furoate/Formoterol Fumar (Dulera 200 Mcg/5 Mcg Inhaler) 2 puff INH BID-RT [facility] Last Admin: 06/28/19 06:15 Dose: 2 puff Ondansetron HCl (Zofran) 4 mg IVP Q6H PRN PRN Reason: Nausea/Vomiting use 1st Polyethylene Glycol (Miralax) 17 gm PO DAILY [facility] Last Admin: 06/28/19 09:37 Dose: Not Given Senna/Docusate Sodium (Senokot S) 2 tab PO BIDPRN PRN PRN Reason: Constipation Sodium Chloride (Flush - Normal Saline) 10 ml IVF Q12HR [facility] Last Admin: 06/28/19 09:37 Dose: 10 ml Sodium Chloride (Flush - Normal Saline) 10 ml IVF PRN PRN PRN Reason: Saline Flush Sodium Chloride (Sodium Chloride) 1 gm PO ACHS [facility] Last Admin: 06/28/19 11:37 Dose: 1 gm Vital Signs & Weight: Vital Signs Temp Pulse Pulse Pulse Resp BP BP 06/28/19 12:00 97.9 F 104 H 16 06/28/19 10:15 73 80 93/48 L 116/56 L 06/28/19 08:20 06/28/19 08:15 97.6 F 77 16 06/28/19 06:15 70 16 06/28/19 04:00 98.8 F 70 16 BP Pulse Ox 06/28/19 12:00 103/55 L 93 L 06/28/19 10:15 06/28/19 08:20 96 06/28/19 08:15 104/57 L 94 L 06/28/19 06:15 06/28/19 04:00 123/60 Admit Weight 113 lb 12.1 oz Weight 108 lb 9 oz - Physical Exam General: alert & oriented x3 HEENT: mucus membranes moist Neck: supple neck Cardiac: irregularly regular Lungs: decreased breath sounds Neuro: grossly intact Abdomen: active bowel sounds Extremities: no edema Skin: clear Musculoskeletal: no pain - Labs Result Diagrams: 06/28/19 04:19 06/28/19 04:19 Troponin/CKMB CK-MB (CK-2) 1.0 ng/mL (0-6.6) 06/26/19 18:04 Troponin I 0.019 ng/mL (< 0.028) 06/27/19 03:41 - Telemetry Supraventricular conduction: atrial fibrillation - Assessment/Plan Assessment/Plan: 1. Chronic atrial fibrillation. Rate controlled. 2. Hyponatremia 3. Alcohol abuse. 4. COPD PLAN: - Continue current meds. - Lenient rate controlled at this time. - Continue diltiazem dirp for now. - Not a great candidate for digoxin as he is non compliant and medication requires levels to be drawn periodically.
[2019-06-28] MEDS ORDERED: ALBUTEROL SULFATE IN PRN (15:43)
[2019-06-28] MEDS ORDERED: Metoprolol Tartrate 50 MG TAB PO SCH ×2 (16:00→21:00)
--- NOTE | 2019-06-28 16:35 | PRG ---
DATE OF SERVICE: 06/28/2019 SUBJECTIVE: Patient was seen and examined at bedside and overnight events noted. Patient denies any shortness of breath or chest pain or palpitation. No history of nausea or vomiting or diarrhea or fever or chills or cramps. OBJECTIVE: GENERAL: This is a thin-built male, in no apparent distress. VITAL SIGNS: Temperature 97.9. Heart rate 104. Respiratory rate 16. Blood pressure 103/55. HEENT: Atraumatic, normocephalic. Oral mucosa is moist. NECK: Supple. CARDIOVASCULAR: S1, S2 heard. Rate and rhythm regular. RESPIRATORY: Clear to auscultation. GASTROINTESTINAL: Abdomen is soft. MUSCULOSKELETAL: No tenderness. No edema. DERMATOLOGIC: No skin rash. NEUROLOGIC: Alert and awake and oriented x3. No focal neurologic deficits. Moving all the extremities. PSYCHIATRIC: Mood and affect normal. LABORATORY DATA: Sodium is 131, potassium 3.3, BUN is 7, and creatinine is 0.6. ASSESSMENT AND PLAN: 1. Hyponatremia, better. 2. Hypochloremia. 3. Mild hypokalemia. 4. Syndrome of inappropriate antidiuretic hormone secretion. 5. History of malignancy. Limit fluid intake. Monitor labs. Job ID: [id number]
--- NOTE | 2019-06-28 18:53 | PRG ---
DATE OF SERVICE: 06/28/2019 Mr. Barreto is afebrile. Heart rate is 104, respiratory rate 16, oximetry is 93% on room air, blood pressure 103/55. He is not wheezing. Sodium is up to 131. IMPRESSION: 1. Hyponatremia, improved. 2. Chronic obstructive pulmonary disease, stable. 3. Recent heavy alcohol and tobacco use, now abstinent he says. 4. Overall, he appears to be stable. We will sign off. Job ID: [id number]
[2019-06-28] MEDS: cefTRIAXone\\ROCEPHIN 1 GM in Sodium Chloride 0.9% 100 ML IVPB SCH (19:41)
--- NOTE | 2019-06-28 20:25 | PDOC.HOSPP ---
- Subjective Encounter Date: 06/28/19 Subjective: The patient is feeling better today. - Objective Vital Signs & Weight: Vital Signs (12 hours) Temp Pulse Pulse Pulse Resp BP BP 06/28/19 18:54 67 16 06/28/19 16:45 98.0 F 72 16 06/28/19 12:00 97.9 F 104 H 16 06/28/19 10:15 73 80 93/48 L 116/56 L BP Pulse Ox 06/28/19 18:54 92 L 06/28/19 16:45 121/59 L 93 L 06/28/19 12:00 103/55 L 93 L 06/28/19 10:15 Weight Admit Weight 113 lb 12.1 oz Weight 108 lb 9 oz Most Recent Monitor Data Heart Rate from ECG 92 NIBP 81/50 NIBP BP-Mean 60 Respiration from ECG 18 SpO2 96 I&O: 06/27/19 06/28/19 06/29/19 06:59 06:59 06:59 Intake Total 240 1882 820 Output Total 350 5625 850 Balance -110 -793 -30 Result Diagrams: 06/28/19 04:19 06/28/19 04:19 Hospitalist ROS - Medication Medications: Active Medications Generic Name Dose Route Start Last Admin Trade Name Freq PRN Reason Stop Dose Admin Albuterol Sulfate 2 puff 06/26/19 22:30 06/28/19 18:54 Proventil Hfa INH 2 puff [id number] CARLOS MANUEL Administration Aspirin 325 mg 06/27/19 09:00 06/28/19 09:36 Aspirin PO 325 mg DAILY CARLOS MANUEL Administration Azithromycin 250 mg 06/27/19 09:00 06/28/19 09:36 Zithromax PO 06/30/19 09:01 250 mg DAILY CARLOS MANUEL Administration Diltiazem HCl 30 mg 06/28/19 21:00 06/28/19 19:42 Cardizem PO 30 mg BID CARLOS MANUEL Administration Enoxaparin Sodium 40 mg 06/27/19 09:00 06/28/19 09:36 Lovenox SC 40 mg 0900 ACRLOS MANUEL Administration Famotidine 20 mg 06/27/19 09:00 06/28/19 19:42 Pepcid PO 20 mg BID CARLOS MANUEL Administration Ceftriaxone Sodium 1 gm/ 100 mls @ 200 mls/hr 06/27/19 18:00 06/28/19 19:41 Sodium Chloride IVPB 07/01/19 18:29 100 mls Q24HR CARLOS MANUEL Administration Vancomycin HCl 750 mg/ Sodium 250 mls @ 250 mls/hr 06/28/19 06:00 06/28/19 17 :57 Chloride IVPB 07/04/19 22:01 250 mls Q8HR CARLOS MANUEL Administration Methylprednisolone Sodium Succinate 60 mg 06/26/19 22:00 06/28/19 17:57 Solu-Medrol IVP 60 mg Q8HR CARLOS MANUEL Administration Mometasone Furoate/Formoterol Fumar 2 puff 06/27/19 06:30 06/28/19 18:54 Dulera 200 Mcg/5 Mcg Inhaler INH 2 puff BID-RT CARLOS MANUEL Administration Polyethylene Glycol 17 gm 06/27/19 09:00 06/28/19 09:37 Miralax PO Not Given DAILY CARLOS MANUEL - Exam General Appearance: awake alert Neck: supple Heart: irregular Respiratory: CTAB, normal chest expansion Gastrointestinal: soft Hosp A/P (1) COPD exacerbation Code(s): J44.1 - CHRONIC OBSTRUCTIVE PULMONARY DISEASE W (ACUTE) EXACERBATION Status: Acute (2) Pneumonia Code(s): J18.9 - PNEUMONIA, UNSPECIFIED ORGANISM Status: Acute (3) SIADH (syndrome of inappropriate ADH production) Status: Acute (4) Sepsis Code(s): A41.9 - SEPSIS, UNSPECIFIED ORGANISM Status: Acute (5) Atrial fibrillation with RVR Code(s): I48.91 - UNSPECIFIED ATRIAL FIBRILLATION Status: Acute (6) Severe malnutrition Code(s): E43 - UNSPECIFIED SEVERE PROTEIN-CALORIE MALNUTRITION Status: Acute (7) Cancer of supraglottis Code(s): C32.1 - MALIGNANT NEOPLASM OF SUPRAGLOTTIS Status: Resolved - Plan Continue nebulizer treatments, antibiotics, and corticosteroids for his pneumonia and COPD exacerbation. On diltiazem drip titrated to a goal of heart rate less than 110. Appreciate cardiology. Severe hyponatremia secondary to SIADH. Sodium level increased by 13 mEq during the past 24 hours which is above target. DC fluid restriction, DC tolvaptan, and DC salt tablets. Repeat BMP in the a.m.
[2019-06-29] MEDS: Albuterol 200 PUFF (6.7GM INHALER) INH SCH ×4 (02:15→14:26)
[2019-06-29] MEDS: Vancomycin HCl 750 MG in Sodium Chloride 0.9% 250 ML 250 ML IVPB SCH ×3 (02:53→16:44)
[2019-06-29 04:51] LABS: #Lymphocytes 0.2 thou/uL (1.20-3.40); #Monocytes 0.4 thou/uL (0.11-0.59); #Neutrophils 9.1 thou/uL (1.40-6.50); %Basophils 0.1 % (0.0-1.0); %Lymphocytes 1.6 % (21.0-51.0); %Monocytes 3.6 % (0.0-10.0); %Neutrophils 94.7 % (42.0-75.0); Hemoglobin 9.7 g/dL (14.0-18.0); Mean Corpuscular HGB CONC 34.2 g/dL (32.0-36.0); Mean Corpuscular Hemoglobin 34.5 pg (27.0-31.0); Mean Platelet Volume 6.3 fL (7.4-10.4); Platelet Count 256 thou/uL (130-400); RBC Distribution Width 12.8 % (11.5-14.5); Red Blood Cell (RBC) Count 2.82 mill/uL (4.70-6.10); White Blood Cell (WBC) Count 9.6 thou/uL (4.8-10.8)
[2019-06-29] MEDS: methylPREDNISolone Sod Succ 40 MG VIAL IVP SCH ×2 (04:57→13:52)
[2019-06-29 05:21] LABS: Anion Gap 12 mmol/L (10-20); BUN (Urea Nitrogen) 9 mg/dL (8.4-25.7); Calc. Creatinine Clearance 87 mL/min (70-130); Calcium 8.3 mg/dL (7.8-10.44); Carbon Dioxide 27 mmol/L (23-31); Chloride 95 mmol/L (98-107); Estimated GFR-MDRD Greater than 90; Glucose 138 mg/dL (80-115); Magnesium 1.5 mg/dL (1.6-2.6); Sodium 131 mmol/L (136-145)
[2019-06-29 05:28] LABS: Potassium 2.9 mmol/L (3.5-5.1)
[2019-06-29] MEDS ORDERED: Potassium Chloride 40 MEQ in Sodium Chloride 0.9% 250 ML 250 ML IVPB SCH (06:00)
[2019-06-29] MEDS: Mometasone 200 MCG/Formoterol 5 MCG 120 PUFF INHALER INH SCH (07:16)
[2019-06-29] MEDS: Aspirin 325 MG TAB PO SCH (08:21)
[2019-06-29] MEDS: Famotidine 20 MG TAB PO SCH (08:22)
[2019-06-29] MEDS: Azithromycin 250 MG TAB PO SCH (08:22)
[2019-06-29] MEDS: Polyethylene Glycol 3350 17 GM Packet PO SCH (08:23)
[2019-06-29] MEDS: Enoxaparin Sodium 40 MG/0.4 ML SYRINGE SC SCH (08:23)
[2019-06-29] MEDS ORDERED: Potassium Chloride 20 MEQ TAB PO SCH ×3 (12:30→18:30)
[2019-06-29 12:51] VITALS: BMI 13.4
[2019-06-29] MEDS: cefTRIAXone\\ROCEPHIN 1 GM in Sodium Chloride 0.9% 100 ML IVPB SCH (16:44)
[2019-06-29 16:51] VITALS: BP 123/66; TEMP 97.5
--- NOTE | 2019-06-30 05:33 | DIS ---
DATE OF ADMISSION: 06/26/2019 DATE OF DISCHARGE: 06/29/2019 DISCHARGE DIAGNOSES: 1. Chronic obstructive pulmonary disease exacerbation. 2. Community-acquired pneumonia. 3. Syndrome of inappropriate antidiuretic hormone secretion. 4. Hyponatremia. 5. Sepsis. 6. Atrial fibrillation with rapid ventricular rate. 7. Severe malnutrition. 8. Cancer of the supraglottis area. DISCHARGE MEDICATIONS: 1. Diltiazem extended release 180 mg orally daily. 2. Levofloxacin 750 mg orally daily for 5 days. 3. Prednisone 40 mg orally daily for 5 days. 4. Aspirin 325 mg orally daily. 5. Symbicort 160/4.5 two puffs inhaled twice daily. 6. Albuterol HFA 1 puff inhaled p.r.n. for shortness of breath or wheezing. 7. Omeprazole 20 mg orally daily. HISTORY OF PRESENT ILLNESS AND HOSPITAL COURSE: The patient is a 63-year-old male with a past medical history of COPD, supraglottic cancer status post chemo and radiation, SIADH, tobacco abuse, atrial fibrillation, and coronary artery disease, who presented to the hospital with complaints of shortness of breath. The patient was recently discharged from the hospital after being admitted for the same problem. In the ER, he was found to be in atrial fibrillation with rapid ventricular response and was started on a Cardizem drip. Chest x-ray revealed evidence of right lower lobe pneumonia, which was confirmed on CT scan of the chest. His sodium level was found to be low at 115, which is lower than his baseline of 120. The patient was started on IV antibiotics and corticosteroids due to possible COPD exacerbation and was managed for his hyponatremia with fluid restriction, salt tablet replacement, and tolvaptan. Over 48 hours, the patient's symptoms improved and his sodium level improved to 131. He was saturating well on room air. Cardizem drip was weaned off and the patient was placed on p.o. Cardizem, which achieved rate control. At this time, he is clinically stable for discharge on oral antibiotics. Job ID: [id number]
== END 2019-06-29 18:26 | disposition home or self-care (01) | DRG 871 ==
LOC: ERS 17:46 → CCU 21:12 → 2NO 06-27 14:30
PROVIDERS: ADMIT Internal Medicine; ATTEND Internal Medicine
DX: A41.9 Sepsis, unspecified organism (principal); E43 Unspecified severe protein-calorie malnutrition; J18.9 Pneumonia, unspecified organism; E22.2 Syndrome of inappropriate secretion of antidiuretic hormone; J44.0 Chronic obstructive pulmonary disease with (acute) lower respiratory infection; J44.1 Chronic obstructive pulmonary disease with (acute) exacerbation; Z68.1 Body mass index [BMI] 19.9 or less, adult; I48.20 Chronic atrial fibrillation, unspecified; I25.10 Atherosclerotic heart disease of native coronary artery without angina pectoris; F17.210 Nicotine dependence, cigarettes, uncomplicated; E87.8 Other disorders of electrolyte and fluid balance, not elsewhere classified; E87.6 Hypokalemia; F10.20 Alcohol dependence, uncomplicated; Z20.828 Contact with and (suspected) exposure to other viral communicable diseases; C44.92 Squamous cell carcinoma of skin, unspecified; Z79.51 Long term (current) use of inhaled steroids; Z85.21 Personal history of malignant neoplasm of larynx; Z79.82 Long term (current) use of aspirin; Z79.899 Other long term (current) drug therapy
CPT/HCPCS: 36415; 71045; 71250; 80048; 80053; 80202; 81003; 82436; 82550; 82553; 83605; 83735; 83930; 83935; 84133; 84300; 84484; 85025; 87040; 87635; 87804; 93005; 94760; 96361; 96365; 96367; J0456; J0696; J1650; J2920; J3370; J3480; J3490; J7050; U0002

== ENCOUNTER 2019-07-02 12:25 | Emergency (ER) | payer OTHER ==
[2019-07-02] MEDS ORDERED: Magnesium 2 GM/50 ML BAG (IN WATER) ONE (12:48)
[2019-07-02] MEDS ORDERED: Dexamethasone 10 MG/ML VIAL ONE (12:48)
--- NOTE | 2019-07-02 13:02 | RAD ---
Exam: Chest one view HISTORY:Dyspnea. Shortness of breath. Comparison: 06/26/2019 FINDINGS: Cardiac silhouette: Normal Aorta: Unremarkable Pulmonary vessels: Normal Costophrenic angles: Clear LUNGS: Stable hyperinflation. Stable opacities in the lung bases, right greater than left. Pneumothorax: No pneumothorax. Stable bilateral apical pleural thickening. Osseous abnormalities: None IMPRESSION: No significant interval change. COPD.
[2019-07-02 13:07] LABS: #Lymphocytes 0.4 thou/uL (1.20-3.40); #Monocytes 0.3 thou/uL (0.11-0.59); #Neutrophils 7.3 thou/uL (1.40-6.50); %Eosinophils 0.2 % (0.0-10.0); %Lymphocytes 4.9 % (21.0-51.0); %Monocytes 3.3 % (0.0-10.0); %Neutrophils 91.7 % (42.0-75.0); Hemoglobin 11.4 g/dL (14.0-18.0); Mean Corpuscular HGB CONC 34.1 g/dL (32.0-36.0); Mean Corpuscular Hemoglobin 34.5 pg (27.0-31.0); Mean Platelet Volume 6.1 fL (7.4-10.4); Platelet Count 263 thou/uL (130-400); RBC Distribution Width 12.8 % (11.5-14.5)
[2019-07-02 13:33] LABS: ALT (SGPT) 33 U/L (8-55); AST (SGOT) 11 U/L (5-34); Albumin 3.1 g/dL (3.4-4.8); Alkaline Phosphatase 82 U/L (40-110); Anion Gap 10 mmol/L (10-20); BUN (Urea Nitrogen) 8 mg/dL (8.4-25.7); Bilirubin, Total 1.5 mg/dL (0.2-1.2); CK (CPK) 18 U/L (30-200); Calc. Creatinine Clearance 0 mL/min (70-130); Calcium 8.1 mg/dL (7.8-10.44); Carbon Dioxide 31 mmol/L (23-31); Chloride 85 mmol/L (98-107); Estimated GFR-MDRD Greater than 90; Globulin 2.1 g/dL (2.4-3.5); Glucose 96 mg/dL (80-115); Potassium 3.4 mmol/L (3.5-5.1); Protein, Total 5.2 g/dL (5.8-8.1); Sodium 123 mmol/L (136-145)
== END 2019-07-02 17:18 | disposition home or self-care (01) ==
LOC: ERS 12:25
DX: J44.1 Chronic obstructive pulmonary disease with (acute) exacerbation (principal); C32.1 Malignant neoplasm of supraglottis; I48.91 Unspecified atrial fibrillation; E22.2 Syndrome of inappropriate secretion of antidiuretic hormone; F17.210 Nicotine dependence, cigarettes, uncomplicated; Z79.899 Other long term (current) drug therapy; Z79.82 Long term (current) use of aspirin
CPT/HCPCS: 36415; 71045; 80053; 82550; 85025; 93005; 96365; 96375; J1100; J3475